=== PATIENT | male | born 1935 | race Caucasian/White ===

== ENCOUNTER → 2017-11-04 | Outpatient (CLI) | payer OTHER ==
--- NOTE | 2017-11-04 16:37 | DIAGNOSTIC IMAGING REPORT ---
CHEST 2 VIEWS ROUTINE HISTORY: Feeling of malaise COMPARISON: None. FINDINGS: There are low lung volumes. A few bibasilar linear densities favor subsegmental atelectasis. No pleural effusions. No pneumothorax. No evidence for pulmonary edema. No focal lung consolidations to suggest pneumonia. The heart is top normal in size. There are poststernotomy changes. Mild elevation of the right hemidiaphragm. Density overlying the lower thoracic spine on the lateral view is likely the hemidiaphragm. IMPRESSION: Low lung volumes, mild elevation of the right hemidiaphragm, and bibasilar linear densities suggesting subsegmental atelectasis. Otherwise, no acute process within the chest. Electronically signed by: Viral Rahcel M.D. 11/04/2017 4:36 PM Dictated Date/Time: 11/04/2017 4:34 PM
== END | disposition home or self-care (01) ==
LOC: C.RADBC 16:16
PROVIDERS: ATTEND Internal Medicine Cardiovascular Disease
DX: R09.89 Other specified symptoms and signs involving the circulatory and respiratory systems (principal)

== ENCOUNTER → 2017-11-05 | Outpatient (CLI) | payer OTHER ==
[2017-11-05 13:41] LABS: BASO % 0.7 %; BASO ABS # 0.04 K/uL (0-0.2); EOS % 5.7 %; EOS ABS # 0.35 K/uL (0-0.5); HEMATOCRIT 40.5 % (42-52); HEMOGLOBIN 13.3 g/dL (14.0-18.0); IG# 0.01 K/uL (0.00-0.02); LYMPH % 21.4 %; LYMPH ABS # 1.31 K/uL (1.2-3.4); MEAN CELL VOLUME 95.1 fL (80-100); MEAN CORPUSCULAR HEMOGLOBIN 31.2 pg (25-34); MEAN CORPUSCULAR HGB CONC 32.8 g/dl (32-36); MEAN PLATELET VOLUME 9.8 fL (7.4-10.4); MONO % 15.9 %; MONO ABS # 0.97 K/uL (0.11-0.59); NEUT % 56.1 %; NEUT ABS # 3.43 K/uL (1.4-6.5); PLATELET COUNT 232 K/uL (130-400); RED CELL DISTRIBUTION WIDTH CV 13.7 % (11.5-14.5); RED CELL DISTRIBUTION WIDTH SD 47.4 fL (36.4-46.3); WHITE BLOOD COUNT 6.11 K/uL (4.8-10.8)
[2017-11-05 14:02] LABS: BLOOD UREA NITROGEN 33 mg/dl (7-18); CALCIUM 9.3 mg/dl (8.5-10.1); CARBON DIOXIDE 30 mmol/L (21-32); CREATININE 1.47 mg/dl (0.60-1.40); GLUCOSE 98 mg/dl (70-99); POTASSIUM 4.3 mmol/L (3.5-5.1); SODIUM 138 mmol/L (136-145)
== END | disposition home or self-care (01) ==
LOC: C.LABBC 09:46
PROVIDERS: ATTEND Internal Medicine Cardiovascular Disease
DX: R06.02 Shortness of breath (principal); R42 Dizziness and giddiness

== ENCOUNTER 2023-04-07 15:33 | Inpatient (IN) ==
--- NOTE | 2023-04-07 16:10 | Emergency Department Note ---
Impression & Plan Viral pneumonia, Hypoxia, Anemia ED Provider Note NAME: BUSHRA QUACH AGE: 87 SEX: M : 1935 ARRIVES VIA: Walk-In INFORMANT: Patient, ED PROVIDER(S): Kristian Nagy MD CHIEF COMPLAINT: Cough, possible pneumonia MEDICAL DECISION MAKING: Patient was seen at [facility] and referred here for further evaluation and treatment. Patient did have an IV established blood work is obtained along with a chest x- ray. Patient was ordered a DuoNeb treatment. Patient currently not an extremis but does have rhonchorous sounds at the bilateral bases. Patient did have some mild improvement after the DuoNeb treatment. The joel ent's blood work shows a normal white count mild anemia hemoglobin of 12.2. Patient's platelet count is unremarkable with normal kidney function. Troponin of 46. He did receive IV fluids. Bio fire positive for enterorhinovirus. Chest x-ray does not show any obvious pneumonia. The patient did undergo an ambulatory trial and was hypoxemic 8%. I did speak with the on-call medicine service. Antibiotics deferred given the patient's viral illness lack of white count and negative procalcitonin. Patient was admitted by Dr. Moore. Prior /Outside records reviewed: I did review in orthopedics visit from March [address] Ruiz the patient had been seen for osteoarthritis of the knees bilaterally. Differential diagnosis: Bronchitis, pneumonia, pneumothorax, hemothorax, GERD, sinusitis among others were considered. Diagnostics, as interpreted by me: ECG: None Cardiac monitoring: An order was placed for continuous cardiac monitoring. The monitor shows a rate of 82 with sinus rhythm. Patient was placed on pulse oximetry Medical decision rules: Curb 65 score Imaging studies: See below I informally reviewed the patient's chest x-ray which shows no obvious pneumothorax. HPI: Patient presents due to concern for cough. Patient states that his cough is been ongoing for about 1 week. The patient did go to [facility] today is referred here as they were concerned about a bilateral pneumonia. Patient states that it seemed to start with more sinus congestion and progressed into his chest. The patient denies any nausea vomiting diarrhea. No chest pains or shortness of breath. Patient does follow with a Dr. Orellana in [place] with regard to cardiology as the patient does have a prior history of CABG. The patient states that this does not feel like his prior [place]. PAST MEDICAL HISTORY: CAD Hyperlipidemia Hypertension PAST SURGICAL HISTORY: Status post CABG SOCIAL HISTORY: See Below HOME MEDICATIONS: See Below ALLERGIES: See Below VITALS: See Below PHYSICAL EXAMINATION: GENERAL: NAD, non-toxic. EYE EXAM: Normal conjunctiva. PERRL, no anisocoria and EOM's grossly intact w/o pain. NECK: Supple, no nuchal rigidity, no adenopathy, non-tender. No signs of meningismus. FROM of the neck with good chin to chest and neck extension. No stridor. LUNGS: Rhonchi at the bilateral bases. Normal chest wall mechanics. HEART: NSR, no MRG. ABDOMEN: Abdomen soft, non-tender, no masses, no rebound or guarding. BACK: No CVA TTP. SKIN: No rashes and no bruising. UPPER EXTREMITIES: Upper extremities are grossly normal. LOWER EXTREMITIES: Grossly normal, no edema. NEURO EXAM: A&O x3, cranial nerves II-XII grossly intact, normal speech, moves all 4 extremities. Past Med/Surg History Social History (Updated 04/07/23 @ 19:58 by Kristian Nagy MD) Smoking Status: Never smoker Hx Alcohol Use: No Hx Substance Use: No Feels Safe at Home: Yes Allergies Allergies Allergy/AdvReac Type Severity Reaction Status Date / Time No Known Allergies Allergy Verified 04/07/23 17:33 Home Meds Home Medications Medication Instructions Recorded Confirmed aspirin 81 mg tablet,delayed 81 mg PO DAILY 02/26/22 04/07/23 release clopidogrel 75 mg tablet (Plavix) 75 mg PO DAILY 02/26/22 04/07/23 isosorbide dinitrate 30 mg tablet 30 mg PO DAILY 02/26/22 04/07/23 simvastatin 80 mg tablet 40 mg PO DAILY 02/26/22 04/07/23 acetaminophen 650 mg 1,300 mg PO Q12H 04/07/23 04/07/23 tablet,extended release azelastine 137 mcg (0.1 %) nasal 1 spray intranasal DAILY 04/07/23 04/07/23 spray aerosol calcium carbonate 600 mg-vitamin 1 tab PO DAILY 04/07/23 04/07/23 D3 10 mcg (400 unit) tablet (Calcium 600 + D(3)) coenzyme Q10 100 mg capsule 100 mg PO DAILY 04/07/23 04/07/23 (CoQ-10) cyanocobalamin (vitamin B-12) 1,000 mcg PO DAILY 04/07/23 04/07/23 1,000 mcg tablet (Vitamin B-12) docusate sodium 100 mg capsule 200 mg PO DAILY 04/07/23 04/07/23 (Stool Softener) folic acid 800 mcg tablet 0.8 mg PO DAILY 04/07/23 04/07/23 losartan 100 mg tablet 50 mg PO DAILY 04/07/23 04/07/23 metoprolol tartrate 50 mg tablet 25 mg PO BID 04/07/23 04/07/23 multivitamin 1 tab PO DAILY 04/07/23 04/07/23 Results & Data (ED) Vital Signs Vital Signs - 24 hr 04/07/23 15:48 04/07/23 16:04 04/07/23 16:04 Temperature 37.3 C Temperature Source Oral Pulse Rate 67 Pulse Rate [Apical] 66 Pulse Rate from SpO2 Sensor Respiratory Rate 20 20 Respiratory Effort / Characteristics Non-Labored Spontaneous Respiratory Depth Normal Normal Respiratory Pattern Regular Blood Pressure 108/66 Blood Pressure [Right Arm] 108/67 Blood Pressure Mean 80 Blood Pressure Mean [Right Arm] 80 Pulse Oximetry 90 93 93 Oxygen Delivery Method Room Air Room Air Room Air Sepsis Recent Fever Within 48 Hours No Sepsis New/Unexplained Change in Mental Status N/A Sepsis Action Taken by Nursing No Action Required 04/07/23 16:19 04/07/23 16:20 04/07/23 16:33 Temperature Temperature Source Pulse Rate 69 Pulse Rate [Apical] Pulse Rate from SpO2 Sensor Respiratory Rate Respiratory Effort / Characteristics Non-Labored Respiratory Depth Respiratory Pattern Regular Blood Pressure Blood Pressure [Right Arm] Blood Pressure Mean Blood Pressure Mean [Right Arm] Pulse Oximetry Oxygen Delivery Method Room Air Room Air Sepsis Recent Fever Within 48 Hours Sepsis New/Unexplained Change in Mental Status Sepsis Action Taken by Nursing 04/07/23 16:42 04/07/23 16:33 04/07/23 17:00 Temperature Temperature Source Pulse Rate 67 Pulse Rate [Apical] Pulse Rate from SpO2 Sensor 69 Respiratory Rate 17 Respiratory Effort / Characteristics Respiratory Depth Respiratory Pattern Blood Pressure 119/58 L Blood Pressure [Right Arm] Blood Pressure Mean 66 Blood Pressure Mean [Right Arm] Pulse Oximetry 92 94 Oxygen Delivery Method Room Air Sepsis Recent Fever Within 48 Hours Sepsis New/Unexplained Change in Mental Status Sepsis Action Taken by Nursing 04/07/23 17:00 04/07/23 17:30 04/07/23 17:30 Temperature Temperature Source Pulse Rate 66 72 Pulse Rate [Apical] Pulse Rate from SpO2 Sensor 67 71 Respiratory Rate 14 14 Respiratory Effort / Characteristics Respiratory Depth Respiratory Pattern Blood Pressure 129/62 Blood Pressure [Right Arm] Blood Pressure Mean 93 Blood Pressure Mean [Right Arm] Pulse Oximetry 95 98 Oxygen Delivery Method Sepsis Recent Fever Within 48 Hours Sepsis New/Unexplained Change in Mental Status Sepsis Action Taken by Nursing 04/07/23 18:00 04/07/23 18:00 04/07/23 18:30 Temperature Temperature Source Pulse Rate 70 77 Pulse Rate [Apical] Pulse Rate from SpO2 Sensor 70 74 Respiratory Rate 20 18 Respiratory Effort / Characteristics Respiratory Depth Respiratory Pattern Blood Pressure 123/65 Blood Pressure [Right Arm] Blood Pressure Mean 90 Blood Pressure Mean [Right Arm] Pulse Oximetry 100 96 Oxygen Delivery Method Sepsis Recent Fever Within 48 Hours Sepsis New/Unexplained Change in Mental Status Sepsis Action Taken by Nursing 04/07/23 18:31 04/07/23 18:31 04/07/23 19:00 Temperature Temperature Source Pulse Rate 81 Pulse Rate [Apical] Pulse Rate from SpO2 Sensor 82 70 Respiratory Rate 13 Respiratory Effort / Characteristics Respiratory Depth Respiratory Pattern Blood Pressure 127/65 Blood Pressure [Right Arm] Blood Pressure Mean 75 Blood Pressure Mean [Right Arm] Pulse Oximetry 96 92 Oxygen Delivery Method Sepsis Recent Fever Within 48 Hours Sepsis New/Unexplained Change in Mental Status Sepsis Action Taken by Residential Medications Current Medication List: was personally reviewed by me Laboratory Data Attestation: I reviewed the patient's lab results. 04/07/23 16:00 04/07/23 16:00 Lab Results 04/07/23 04/07/23 04/07/23 Range/Units 16:00 16:00 16:00 WBC 6.66 (4.8-10.8) K/ul RBC 3.78 L (4.70-6.10) M/uL Hgb 12.2 L (14.0-18.0) g/dl Hct 35.8 L (42.0-52.0) % MCV 94.7 (80.0-100.0) fL MCH 32.3 (25.0-34.0) pg MCHC 34.1 (32.0-36.0) g/dL RDW Std Deviation 47.9 H (36.4-46.3) fL RDW Coeff of Daniel 13.8 (11.5-14.5) % Plt Count 245 (130-400) K/uL MPV 9.6 (9.4-12.4) fL Immature Gran % (Auto) 0.5 % Neut % (Auto) 60.6 % Lymph % (Auto) 20.4 % [place] % (Auto) 14.1 % Eos % (Auto) 3.9 % Baso % (Auto) 0.5 % Neut # (Auto) 4.04 (1.40-6.50) K/uL Lymph # (Auto) 1.36 (1.2-3.4) K/uL [place] # (Auto) 0.94 H (0.11-0.59) K/uL Eos # (Auto) 0.26 (0-0.50) K/uL Baso # (Auto) 0.03 (0-0.2) K/uL Immature Gran # (Auto) 0.03 (0.01-0.20) K/uL PT 10.3 (9.0-12.0) Seconds INR 0.9 (0.9-1.1) APTT 25.1 (21.0-31.0) Seconds PTT Ratio 0.9 Sodium 139 (136-145) mmol/L Potassium 4.3 (3.5-5.1) mmol/L Chloride 104 (98-107) mmol/L Carbon Dioxide 28 (21-32) mmol/L Anion Gap 7 (3-11) BUN 47 H (6-23) mg/dl Creatinine 1.39 (0.6-1.4) mg/dl Est Cr Clr Drug Dosing 37.2 ml/min Est GFR ( Amer) 52.4 ml/min Est GFR (Non-Af Amer) 45.2 ml/min BUN/Creatinine Ratio 33.8 H (10-20) Glucose 123 H (70-99(Fasting)) mg/dl Lactate (0.4-2.0) mmol/L Calcium 9.5 (8.6-10.3) mg/dl Magnesium 2.1 (1.7-2.4) mg/dl Total Bilirubin 0.5 (0.2-1.0) mg/dl AST 14 (13-39) U/L ALT 11 (7-52) U/L Alkaline Phosphatase 63 (34-104) U/L Troponin I High Sens 46.2 H (0-20) pg/ml Total Protein 6.8 (6.0-8.3) gm/dl Albumin 4.1 (3.4-5.0) gm/dl Globulin 2.7 (2.5-4.0) gm/dl Albumin/Globulin Ratio 1.5 (0.9-2) Procalcitonin (0-0.5) ng/ml Adenovirus (PCR) (NotDetected) B. pertussis DNA (PCR) (NotDetected) B.parapertussis DNA PCR (NotDetected) C. pneumoniae DNA (PCR) (NotDetected) Coronavirus OC43 (PCR) (NotDetected) Coronavirus HKU1 (PCR) (NotDetected) Coronavirus 229E (PCR) (NotDetected) SARS-CoV-2 (PCR) (NotDetected) Coronavirus NL63 (PCR) (NotDetected) Human Metapneumovir PCR (NotDetected) Influenza Type A (PCR) (NotDetected) Influenza Type B (PCR) (NotDetected) M. pneumoniae (PCR) (NotDetected) Parainfluenza 1 (PCR) (NotDetected) Parainfluenza 2 (PCR) (NotDetected) Parainfluenza 3 (PCR) (NotDetected) Parainfluenza 4 (PCR) (NotDetected) RSV (PCR) (NotDetected) Entero/Rhino (PCR) (NotDetected) 04/07/23 04/07/23 04/07/23 Range/Units 16:00 16:47 17:00 WBC (4.8-10.8) K/ul RBC (4.70-6.10) M/uL Hgb (14.0-18.0) g/dl Hct (42.0-52.0) % MCV (80.0-100.0) fL MCH (25.0-34.0) pg MCHC (32.0-36.0) g/dL RDW Std Deviation (36.4-46.3) fL RDW Coeff of Daniel (11.5-14.5) % Plt Count (130-400) K/uL MPV (9.4-12.4) fL Immature Gran % (Auto) % Neut % (Auto) % Lymph % (Auto) % [place] % (Auto) % Eos % (Auto) % Baso % (Auto) % Neut # (Auto) (1.40-6.50) K/uL Lymph # (Auto) (1.2-3.4) K/uL [place] # (Auto) (0.11-0.59) K/uL Eos # (Auto) (0-0.50) K/uL Baso # (Auto) (0-0.2) K/uL Immature Gran # (Auto) (0.01-0.20) K/uL PT (9.0-12.0) Seconds INR (0.9-1.1) APTT (21.0-31.0) Seconds PTT Ratio Sodium (136-145) mmol/L Potassium (3.5-5.1) mmol/L Chloride (98-107) mmol/L Carbon Dioxide (21-32) mmol/L Anion Gap (3-11) BUN (6-23) mg/dl Creatinine (0.6-1.4) mg/dl Est Cr Clr Drug Dosing ml/min Est GFR ( Amer) ml/min Est GFR (Non-Af Amer) ml/min BUN/Creatinine Ratio (10-20) Glucose (70-99(Fasting)) mg/dl Lactate 0.8 (0.4-2.0) mmol/L Calcium (8.6-10.3) mg/dl Magnesium (1.7-2.4) mg/dl Total Bilirubin (0.2-1.0) mg/dl AST (13-39) U/L ALT (7-52) U/L Alkaline Phosphatase (34-104) U/L Troponin I High Sens (0-20) pg/ml Total Protein (6.0-8.3) gm/dl Albumin (3.4-5.0) gm/dl Globulin (2.5-4.0) gm/dl Albumin/Globulin Ratio (0.9-2) Procalcitonin < 0.05 (0-0.5) ng/ml Adenovirus (PCR) Not Detected (NotDetected) B. pertussis DNA (PCR) Not Detected (NotDetected) B.parapertussis DNA PCR Not Detected (NotDetected) C. pneumoniae DNA (PCR) Not Detected (NotDetected) Coronavirus OC43 (PCR) Not Detected (NotDetected) Coronavirus HKU1 (PCR) Not Detected (NotDetected) Coronavirus 229E (PCR) Not Detected (NotDetected) SARS-CoV-2 (PCR) Not Detected (NotDetected) Coronavirus NL63 (PCR) Not Detected (NotDetected) Human Metapneumovir PCR Not Detected (NotDetected) Influenza Type A (PCR) Not Detected (NotDetected) Influenza Type B (PCR) Not Detected (NotDetected) M. pneumoniae (PCR) Not Detected (NotDetected) Parainfluenza 1 (PCR) Not Detected (NotDetected) Parainfluenza 2 (PCR) Not Detected (NotDetected) Parainfluenza 3 (PCR) Not Detected (NotDetected) Parainfluenza 4 (PCR) Not Detected (NotDetected) RSV (PCR) Not Detected (NotDetected) Entero/Rhino (PCR) DETECTED A* (NotDetected) Administered Medications Discontinued Medications Albuterol (Albut/Ipratrop 3mg/0.5mg Neb 3 Ml Vial) 3 ml INH NOW STA Stop: 04/07/23 16:38 Last Admin: 04/07/23 16:58 Dose: 3 ml Documented By: Sodium Chloride (Nss) 500 mls @ 999 mls/hr IV .Q31M STA Stop: 04/07/23 17:07 Last Infusion: 04/07/23 17:29 Dose: 0 mls/hr Documented By: Admin: 04/07/23 16:58 Dose: 999 mls/hr Documented By: Imaging Data Radiologist's Impression: Chest X-Ray 04/07/23 16:37 SINGLE VIEW CHEST CLINICAL HISTORY: Rhonchi at the lung bases. FINDINGS: An AP, portable, upright chest radiograph is compared to study dated 11/04/2017. The examination is degraded by portable technique and apical lordotic positioning. The patient is status post midline sternotomy. The heart is enlarged and noting atherosclerotic calcification of the thoracic aorta. The pulmonary vasculature is noncongested. Chronic interstitial thickening is similar to previous. There is chronic elevation of the right hemidiaphragm noting bibasilar scarring/atelectasis. No airspace consolidation or large pleural effusion is identified. No pneumothorax is seen. The skeletal structures are osteopenic. The bony thorax is grossly intact. Degenerative change is noted in the shoulders and spine. IMPRESSION: Cardiomegaly with no active disease in the chest. ACT 112: Negative or not required by law. Electronically signed by: Red Christian M.D. 04/07/2023 4:55 PM Discharge Plan Visit Data Chief Complaint: Shortness of Breath/Dyspnea Stated Complaint: double pnumonia ED Provider: Kristian Nagy Discharge Problem: Viral pneumonia, Hypoxia, Anemia Forms Stand Alone Forms: My [facility] Prescriptions Prescriptions: No Action simvastatin 80 mg tablet 40 mg PO DAILY isosorbide dinitrate 30 mg tablet 30 mg PO DAILY Rx Instructions: allow nitrate-free interval of 12-14 hrs per 24-hr period clopidogrel [Plavix] 75 mg tablet 75 mg PO DAILY aspirin 81 mg tablet,delayed release (DR/EC) 81 mg PO DAILY multivitamin Tablet 1 tab PO DAILY cyanocobalamin (vitamin B-12) [Vitamin B-12] 1,000 mcg Tablet 1,000 mcg PO DAILY acetaminophen [Tylenol Arthritis] 650 mg Tablet Extended Release 1,300 mg PO Q12H metoprolol tartrate 50 mg tablet 25 mg PO BID docusate sodium [Stool Softener] 100 mg Capsule 200 mg PO DAILY azelastine 137 mcg (0.1 %) aerosol,spray 1 spray intranasal DAILY losartan 100 mg tablet 50 mg PO DAILY folic acid 800 mcg Tablet 0.8 mg PO DAILY coenzyme Q10 [CoQ-10] 100 mg Capsule 100 mg PO DAILY calcium carbonate-vitamin D3 [Calcium 600 + D(3)] 600 mg-10 mcg (400 unit) Tablet 1 tab PO DAILY Referrals Referrals: Sana Snell MD [Primary Care Provider] -
[2023-04-07] MEDS ORDERED: ALBUT/IPRATROP 3MG/0.5MG NEB 3 ML VIAL INH STA (16:37)
[2023-04-07] MEDS ORDERED: SODIUM CHLORIDE 0.9% 500 ML IV STA (16:37)
--- NOTE | 2023-04-07 16:57 | XRay Report ---
SINGLE VIEW CHEST CLINICAL HISTORY: Rhonchi at the lung bases. FINDINGS: An AP, portable, upright chest radiograph is compared to study dated 11/04/2017. The examina tion is degraded by portable technique and apical lordotic positioning. The patient is status post mi dline sternotomy. The heart is enlarged and noting atherosclerotic calcification of the thoracic aort a. The pulmonary vasculature is noncongested. Chronic interstitial thickening is similar to previous. There is chronic elevation of the right hemidiaphragm noting bibasilar scarring/atelectasis. No airs pace consolidation or large pleural effusion is identified. No pneumothorax is seen. The skeletal str uctures are osteopenic. The bony thorax is grossly intact. Degenerative change is noted in the should ers and spine. IMPRESSION: Cardiomegaly with no active disease in the chest. ACT 112: Negative or not required by law. Electronically signed by: Red Christian M.D. 04/07/2023 4:55 PM
[2023-04-07 17:01] LABS: Basophils # (auto) 0.03 K/uL (0-0.2); Basophils % (auto) 0.5 %; Eosinophils # (auto) 0.26 K/uL (0-0.50); Eosinophils % (auto) 3.9 %; Hematocrit (blood only) 35.8 % (42.0-52.0); Hemoglobin 12.2 g/dl (14.0-18.0); Immature Granulocytes # (auto) 0.03 K/uL (0.01-0.20); Immature Granulocytes % (auto) 0.5 %; Lymphocytes # (auto) 1.36 K/uL (1.2-3.4); Lymphocytes % (auto) 20.4 %; Mean Corpuscular Hemoglobin 32.3 pg (25.0-34.0); Mean Corpuscular Hgb Conc 34.1 g/dL (32.0-36.0); Mean Corpuscular Volume 94.7 fL (80.0-100.0); Mean Platelet Volume 9.6 fL (9.4-12.4); Monocytes # (auto) 0.94 K/uL (0.11-0.59); Monocytes % (auto) 14.1 %; Neutrophils # (auto) 4.04 K/uL (1.40-6.50); Neutrophils % (auto) 60.6 %; Platelet Count 245 K/uL (130-400); RDW Coefficient of Variation 13.8 % (11.5-14.5); RDW Standard Deviation 47.9 fL (36.4-46.3); Red Blood Count 3.78 M/uL (4.70-6.10); White Blood Count 6.66 K/ul (4.8-10.8)
[2023-04-07 17:08] LABS: Albumin Globulin Ratio 1.5 (0.9-2); Albumin Level 4.1 gm/dl (3.4-5.0); BUN Creatinine Ratio 33.8 (10-20); Bilirubin,Total 0.5 mg/dl (0.2-1.0); Calcium 9.5 mg/dl (8.6-10.3); Creatinine Clr Calc Pharmacy 37.2 ml/min; Est GFR (African American) 52.4 ml/min; Est GFR (Non-African American) 45.2 ml/min; Globulin 2.7 gm/dl (2.5-4.0); Magnesium 2.1 mg/dl (1.7-2.4); Potassium 4.3 mmol/L (3.5-5.1); Total Protein 6.8 gm/dl (6.0-8.3)
[2023-04-07 17:14] LABS: Troponin I High Sensitivity 46.2 pg/ml (0-20)
[2023-04-07 17:29] LABS: INR 0.9 (0.9-1.1); Partial Thromboplastin Ratio 0.9; Partial Thromboplastin Time 25.1 Seconds (21.0-31.0); Prothrombin Time 10.3 Seconds (9.0-12.0)
[2023-04-07 18:03] LABS: Adenovirus PCR Not Detected (NotDetected); Bordetella parapertussis PCR Not Detected (NotDetected); Bordetella pertussis PCR Not Detected (NotDetected); Chlamydia pneumoniae PCR Not Detected (NotDetected); Coronavirus 229E PCR Not Detected (NotDetected); Coronavirus CoV-2 (COVID19)PCR Not Detected (NotDetected); Coronavirus HKU1 PCR Not Detected (NotDetected); Coronavirus NL63 PCR Not Detected (NotDetected); Coronavirus OC43PCR Not Detected (NotDetected); Human Metapneumovirus PCR Not Detected (NotDetected); Influenza A PCR Not Detected (NotDetected); Influenza B PCR Not Detected (NotDetected); Mycoplasma pneumoniae PCR Not Detected (NotDetected); Parainfluenza Virus 1 PCR Not Detected (NotDetected); Parainfluenza Virus 2 PCR Not Detected (NotDetected); Parainfluenza Virus 3 PCR Not Detected (NotDetected); Parainfluenza Virus 4 PCR Not Detected (NotDetected); Respiratory Syncytial VirusPCR Not Detected (NotDetected)
[2023-04-07 18:17] LABS: Rhinovirus/Enterovirus PCR DETECTED (NotDetected)
[2023-04-07] MEDS ORDERED: BENZONATATE 100 MG CAPSULE PO ONE (22:43)
--- NOTE | 2023-04-07 23:07 | History & Physical Report ---
Date of Service April 07, 2023 Assessment & Plan (1) Viral pneumonia: Plan: 87yo Male with PMH CABG with stent placement here for SOB congestion. Viral URI -found to be rhinovirus on PCR -WBC wnl, procal wnl -CXR:Cardiomegaly with no active disease in the chest. -received duoneb in ED -continue PRN duoneb for wheeze -ordered PRN tessalon perls, lozenges, scheduled mucinex -ordered incentive spirometry Hx. CABG -continue aspirin, plavix, isosorbide dinitrate, losartan, simvastatin -trop elevated at 46.3 recheck 43.2, repeat pending FENa: heart healthy Code Status: Full DVT PPX: SCDs Dispo: med/tele obs Holly Egan D.O. PGY 3, FCM History of Present Illness Chief Complaint: SOB Primary Care Provider: Sana Snell MD 87yo Male with PMH CABG with stent placement here for SOB congestion. States congestion started last week, had increased SOB on exertion today went to [facility], they took a CXR stated he had bilateral pneumonia sent him to ED, patient declined ambulance was driven by family member. In ED noted patient desatted to 88% on ambulation with room air, was given albuterol nebulizer which improved his breathing. At this time he denies any fever chills chest pain SOB nausea vomitting. Patient understands that his CXR retaken in the hospital does not show evidence of pneumonia, labs were positive for rhinovirus. Still has productive sounding cough in room, mild wheeze. He denies history of pulmonary conditions. Per son, patient lives alone, family lives 30min away. Discussed with patient given his mildly elevated troponin, the fact he lives alone with an extensive cardiac history, we will recheck his troponin. Troponin returned largely unchanged. Discussed with patient it would be safer to keep him overnight, patient agreed. Allergies Allergy/AdvReac Type Severity Reaction Status Date / Time No Known Allergies Allergy Verified 04/07/23 17:33 Home Medications Medication Instructions Recorded Confirmed Type aspirin 81 mg tablet,delayed 81 mg PO DAILY 02/26/22 04/07/23 History release clopidogrel 75 mg tablet (Plavix) 75 mg PO DAILY 02/26/22 04/07/23 History isosorbide dinitrate 30 mg tablet 30 mg PO DAILY 02/26/22 04/07/23 History simvastatin 80 mg tablet 40 mg PO DAILY 02/26/22 04/07/23 History acetaminophen 650 mg 1,300 mg PO Q12H 04/07/23 04/07/23 History tablet,extended release azelastine 137 mcg (0.1 %) nasal 1 spray intranasal DAILY 04/07/23 04/07/23 History spray aerosol calcium carbonate 600 mg-vitamin 1 tab PO DAILY 04/07/23 04/07/23 History D3 10 mcg (400 unit) tablet (Calcium 600 + D(3)) coenzyme Q10 100 mg capsule 100 mg PO DAILY 04/07/23 04/07/23 History (CoQ-10) cyanocobalamin (vitamin B-12) 1,000 mcg PO DAILY 04/07/23 04/07/23 History 1,000 mcg tablet (Vitamin B-12) docusate sodium 100 mg capsule 200 mg PO DAILY 04/07/23 04/07/23 History (Stool Softener) folic acid 800 mcg tablet 0.8 mg PO DAILY 04/07/23 04/07/23 History losartan 100 mg tablet 50 mg PO DAILY 04/07/23 04/07/23 History metoprolol tartrate 50 mg tablet 25 mg PO BID 04/07/23 04/07/23 History multivitamin 1 tab PO DAILY 04/07/23 04/07/23 History Past Med/Surg History Social History (Updated 04/07/23 @ 19:58 by Kristian Nagy MD) Smoking Status: Former smoker Hx Alcohol Use: Yes Hx Substance Use: No Preferred Language: [place] Communication Ability: Effective Information Services Consultant Required: No Beliefs That Will Affect Care: None Current Living Situation: Alone Current Living Situation Comment: Lives at home. passed in 2021 Feels Safe at Home: Yes Safety Concerns: Feels Safe At This Time Assistive Devices: Cane, Glasses and Walker Physical Exam Constitutional: well developed, well nourished, cooperative and comfortable Eyes: PERRL, conjunctivae normal, anicteric sclerae ENMT: external ear and nose normal, oropharynx normal Neck: trachea midline, no thyromegaly Respiratory: Auscultation: + rhonchi and + wheezes Cardiovascular: Rate/Rhythm: regular rate and regular rhythm Skin: no rashes, warm and dry Results & Data Results & Data Vital Signs (Past 12 Hours) Vital Signs Temp Pulse Pulse Resp BP BP Pulse Ox 04/07/23 19:00 92 04/07/23 18:31 81 13 96 04/07/23 18:31 127/65 04/07/23 18:30 77 18 96 04/07/23 18:00 70 20 100 04/07/23 18:00 123/65 04/07/23 17:30 72 14 98 04/07/23 17:30 129/62 04/07/23 17:00 66 14 95 04/07/23 17:00 119/58 L 04/07/23 16:33 67 17 94 04/07/23 16:42 92 04/07/23 16:33 69 04/07/23 16:20 04/07/23 16:19 04/07/23 16:04 93 04/07/23 16:04 66 20 108/67 93 04/07/23 15:48 37.3 C 67 20 108/66 90 O2 Del Method 04/07/23 19:00 04/07/23 18:31 04/07/23 18:31 04/07/23 18:30 04/07/23 18:00 04/07/23 18:00 04/07/23 17:30 04/07/23 17:30 04/07/23 17:00 04/07/23 17:00 04/07/23 16:33 04/07/23 16:42 Room Air 04/07/23 16:33 04/07/23 16:20 Room Air 04/07/23 16:19 Room Air 04/07/23 16:04 Room Air 04/07/23 16:04 Room Air 04/07/23 15:48 Room Air Supervising Physician Co-Signing Physician Notes attending addendum: I have physically seen this patient, have supervised the medical residents activities, and agree with the H&P unless as otherwise noted. Assessment and Plan: Viral pneumonia- PCR positive for enterovirus/rhinovirus Supportive therapy with DuoNebs, Tessalon Perles, lozenges and Mucinex Continue incentive spirometry Hold on methylprednisolone IV Elevated troponin/CAD/hypertension/status post CABG- troponin mildly elevated at 46.2, likely type II supply demand mismatch Continue aspirin, clopidogrel, isosorbide mononitrate, losartan, metoprolol tart rate hyperlipidemia- continue simvastatin remaining orders and notations as noted Resident Activity Tracking Resident Involvement: Resident Care Provided Care Provided: Adult Hospital Medicine
[2023-04-08] MEDS ORDERED: ALBUTEROL 0.083% NEBU SOLN 3 ML VIAL NEB PRN (00:09)
[2023-04-08] MEDS ORDERED: POLYETHYLENE (MIRALAX) 17 GM PACK PO PRN (00:09)
[2023-04-08] MEDS: COUGH DROP (SUGAR FREE) LOZ 24 LOZ/1 BOX BUCCAL PRN ×2 (05:10→20:32)
[2023-04-08 06:52] LABS: Hematocrit (blood only) 34.8 % (42.0-52.0); Hemoglobin 11.5 g/dl (14.0-18.0); Mean Corpuscular Hemoglobin 31.6 pg (25.0-34.0); Mean Corpuscular Volume 95.6 fL (80.0-100.0); Mean Platelet Volume 9.3 fL (9.4-12.4); Platelet Count 214 K/uL (130-400); RDW Coefficient of Variation 13.6 % (11.5-14.5); RDW Standard Deviation 47.8 fL (36.4-46.3); Red Blood Count 3.64 M/uL (4.70-6.10); White Blood Count 7.51 K/ul (4.8-10.8)
[2023-04-08 07:23] LABS: Albumin Globulin Ratio 1.7 (0.9-2); Albumin Level 3.8 gm/dl (3.4-5.0); BUN Creatinine Ratio 26.1 (10-20); Bilirubin,Total 0.5 mg/dl (0.2-1.0); Calcium 9.2 mg/dl (8.6-10.3); Creatinine Clr Calc Pharmacy 33.7 ml/min; Est GFR (African American) 46.7 ml/min; Est GFR (Non-African American) 40.3 ml/min; Globulin 2.3 gm/dl (2.5-4.0); Potassium 4.4 mmol/L (3.5-5.1); Total Protein 6.1 gm/dl (6.0-8.3)
[2023-04-08] MEDS: ISOSORBIDE MONO EXTENDED REL 30 MG TABCR PO SCH (08:13)
[2023-04-08] MEDS: guaiFENesin 600 MG TABCR PO SCH ×2 (08:13→20:30)
[2023-04-08] MEDS: ASPIRIN 81 MG ECTAB PO SCH (08:14)
[2023-04-08] MEDS: BENZONATATE 100 MG CAPSULE PO SCH ×3 (08:14→20:29)
[2023-04-08] MEDS: DOCUSATE SODIUM 100 MG CAP PO SCH (08:14)
[2023-04-08] MEDS: CLOPIDOGREL BISULFATE 75 MG TAB PO SCH (08:14)
[2023-04-08] MEDS: MULTIVITAMIN TAB PO SCH (08:14)
[2023-04-08] MEDS: FOLIC ACID 400 MCG TAB PO SCH (08:14)
[2023-04-08] MEDS: METOPROLOL TARTRATE 25 MG TAB PO SCH ×2 (08:14→20:31)
[2023-04-08] MEDS: LOSARTAN POTASSIUM 50 MG TAB PO SCH (08:15)
[2023-04-08] MEDS: CALCIUM 600MG + VIT D 400 IU TAB PO SCH (08:15)
[2023-04-08] MEDS: CYANOCOBALAMIN (B-12) 500 MCG TABLET PO SCH (08:15)
[2023-04-08] MEDS ORDERED: NON-FORMULARY MEDICATION (Coenzyme Q10 [Coq-10] 100 mg Capsule) PO SCH (09:00)
[2023-04-08] MEDS: ACETAMINOPHEN 325 MG TAB PO PRN (11:35)
[2023-04-08] MEDS ORDERED: predniSONE 20 MG TAB PO STA (14:55)
[2023-04-08] MEDS ORDERED: ALBUT/IPRATROP 3MG/0.5MG NEB 3 ML VIAL NEB PRN (14:59)
[2023-04-08] MEDS: ALBUT/IPRATROP 3MG/0.5MG NEB 3 ML VIAL NEB SCH ×2 (15:18→19:39)
[2023-04-08] MEDS: SIMVASTATIN 40 MG TAB PO SCH (20:31)
--- NOTE | 2023-04-08 21:27 | Hospitalist Progress Note ---
Date of Service April 08, 2023 Assessment & Plan (1) Acute bronchitis due to Rhinovirus: Plan: BioFire + for rhinovirus at time of admission yesterday. CXR without obvious pneumonia. Significant wheezing on exam. Thus clinical picture most c/w bronchitis from rhinovirus. Start prednisone 40mg daily. Start scheduled duonebs q6h. Cont mucinex. Add flutter valve + IS. Cont droplet precautions. Repeat cxr in am to ensure no developing bacterial superinfection. (2) CAD (coronary artery disease): Plan: h/o 6-vessel CABG in the early . NUMEROUS stents since that time, all of which were placed at [facility] except for 1 stent at the hospital in [place]? Cont imdur, losartan, metoprolol, simvastatin, asa, plavix. No ischemic symptoms at this time. Minimal HS trop elevation likely demand ischemia in setting of #1 above. (3) Hx of CABG: Plan: as above (4) Chronic renal failure (CRF), stage 3b: Plan: CrCl low 30s over last few years BMP in am for stability (5) Elevated troponin: Plan: likely myocardial demand ischemia 2nd to #1 no ischemic symptoms at this time EKG with ST segment depression III, AVF - I don't have old EKG to compare Other leads are normal will try to get an EKG from [facility] to compare (6) DVT prophylaxis: Plan: heparin 5000 BID Plan obtain PT, OT danielals son, daughter updated at bedside cont to observe ; not ready for d/c yet Admission and Anticipated Discharge Date Admission Date: April 07, 2023 Subjective patient feels very congested in his chest can't take deep breaths has been sick for ~1 week no fever at any point during the illness no significant URI symptoms appetite is ok no substernal chest pain denies h/o asthma or COPD following the visit I ordered STAT duoneb following the duoneb his breath sounds/airation were much better he could take a deeper breath Review of Systems Review of Systems: gen - no fevers cv - no chest pain, just a little chest tightness pulm - cough, congestion; no dyspnea GI - no N/V Physical Exam Physical Exam: gen - sitting at side of bed, NAD, occasional cough neck - no JVD sitting upright mouth - MMM heart - RRR, s1 s2 lungs - very poor airation; scattered b/l wheezes; crackles bases; after duoneb --> airation improved, still with mild wheeze, crackles bases remain abd - soft NT ND BS+ chest - midline sternal scar present ext - trace edema b/l, pulses 2+ b/l psych - a/o x 3 Results & Data Results & Data Vital Signs (Past 12 Hours) Vital Signs Temp Pulse Pulse Resp BP Pulse Ox O2 Del Method 04/08/23 19:57 36.7 C 102 H 18 141/73 H 92 Room Air 04/08/23 19:41 93 H 18 93 Room Air 04/08/23 15:58 75 04/08/23 15:18 75 18 95 Room Air 04/08/23 12:16 37.1 C 73 16 161/78 H 93 Room Air Laboratory Results Laboratory Results - last 24 hr 04/07/23 04/08/23 04/08/23 20:52 06:29 06:29 WBC 7.51 RBC 3.64 L Hgb 11.5 L Hct 34.8 L MCV 95.6 MCH 31.6 MCHC 33.0 RDW Std Deviation 47.8 H RDW Coeff of Daniel 13.6 Plt Count 214 MPV 9.3 L Sodium Potassium Chloride Carbon Dioxide Anion Gap BUN Creatinine Est Cr Clr Drug Dosing Est GFR ( Amer) Est GFR (Non-Af Amer) BUN/Creatinine Ratio Glucose Calcium Total Bilirubin AST ALT Alkaline Phosphatase Troponin I High Sens 43.2 H 51.5 H* Total Protein Albumin Globulin Albumin/Globulin Ratio 04/08/23 06:29 WBC RBC Hgb Hct MCV MCH MCHC RDW Std Deviation RDW Coeff of Daniel Plt Count MPV Sodium 141 Potassium 4.4 Chloride 106 Carbon Dioxide 29 Anion Gap 6 BUN 40 H Creatinine 1.53 H Est Cr Clr Drug Dosing 33.7 Est GFR ( Amer) 46.7 Est GFR (Non-Af Amer) 40.3 BUN/Creatinine Ratio 26.1 H Glucose 101 H Calcium 9.2 Total Bilirubin 0.5 AST 13 ALT 10 Alkaline Phosphatase 59 Troponin I High Sens Total Protein 6.1 Albumin 3.8 Globulin 2.3 L Albumin/Globulin Ratio 1.7 PG Care Time/CCT Total # of Minutes Spent Total Time Spent with Patient: Total time spent is greater than 50% in coordination of care (as documented) at patient's floor/unit and/or counseling patient: Coding Level of Care Code 16972 SUB INP/OBS CARE 2MIN Diagnoses Acute bronchitis due to Rhinovirus J20.6 CAD (coronary artery disease) I25.10 Hx of CABG Z95.1 Chronic renal failure (CRF), stage 3b N18.32 Elevated troponin R77.8 DVT prophylaxis Z29.9
--- NOTE | 2023-04-09 03:14 | Billing Data ---
Date of Service April 09, 2023 Coding Level of Care Code 06143 INT INP/OBS CARE
[2023-04-09 07:04] LABS: BUN Creatinine Ratio 24.8 (10-20); Creatinine Clr Calc Pharmacy 31.3 ml/min; Est GFR (African American) 42.6 ml/min; Est GFR (Non-African American) 36.8 ml/min; Potassium 4.7 mmol/L (3.5-5.1)
[2023-04-09] MEDS: ALBUT/IPRATROP 3MG/0.5MG NEB 3 ML VIAL NEB SCH ×4 (07:22→19:26)
[2023-04-09] MEDS: METOPROLOL TARTRATE 25 MG TAB PO SCH ×2 (07:47→20:16)
[2023-04-09] MEDS: CALCIUM 600MG + VIT D 400 IU TAB PO SCH (07:48)
[2023-04-09] MEDS: ISOSORBIDE MONO EXTENDED REL 30 MG TABCR PO SCH (07:48)
[2023-04-09] MEDS: CLOPIDOGREL BISULFATE 75 MG TAB PO SCH (07:48)
[2023-04-09] MEDS: MULTIVITAMIN TAB PO SCH (07:48)
[2023-04-09] MEDS: LOSARTAN POTASSIUM 50 MG TAB PO SCH (07:48)
[2023-04-09] MEDS: ASPIRIN 81 MG ECTAB PO SCH (07:48)
[2023-04-09] MEDS: FOLIC ACID 400 MCG TAB PO SCH (07:48)
[2023-04-09] MEDS: DOCUSATE SODIUM 100 MG CAP PO SCH (07:49)
[2023-04-09] MEDS: BENZONATATE 100 MG CAPSULE PO SCH ×3 (07:49→20:17)
[2023-04-09] MEDS: HEPARIN SOD 5,000 UNIT/0.5 ML VIAL SQ SCH ×2 (07:50→20:16)
[2023-04-09] MEDS: guaiFENesin 600 MG TABCR PO SCH ×2 (07:50→20:16)
[2023-04-09] MEDS: CYANOCOBALAMIN (B-12) 500 MCG TABLET PO SCH (08:56)
[2023-04-09] MEDS ORDERED: predniSONE 20 MG TAB PO STA (09:26)
[2023-04-09 10:40] LABS: Estimated Average Glucose 148 mg/dl; Hemoglobin A1C 6.8 % (4.5-5.6)
--- NOTE | 2023-04-09 10:44 | XRay Report ---
XR chest 2V PA/lateral CLINICAL HISTORY: rhinovirus bronchitis; evaluate for pneumonia COMPARISON STUDY: Chest radiographs November 04, 2017 and April 07, 2023. FINDINGS: Median sternotomy wires and mediastinal surgical clips are noted. Cardiomediastinal silhoue tte is unchanged since radiographs of November 04, 2017. No evidence for pulmonary edema. No pneumotho rax or pleural effusion. There is no consolidation to suggest pneumonia. Lower lung linear densities favor atelectasis or scarring. A density projecting over the lower thoracic spinal lateral projection is unchanged since earlier radiographs. IMPRESSION: No acute cardiopulmonary findings. No significant change in appearance of the chest. ACT 112: Negative or not required by law. Electronically signed by: Tommy Lira M.D. 04/09/2023 10:42 AM
--- NOTE | 2023-04-09 14:00 | Hospitalist Progress Note ---
Date of Service April 09, 2023 Assessment & Plan (1) Acute bronchitis due to Rhinovirus: Plan: BioFire + for rhinovirus at time of admission yesterday. CXR without obvious pneumonia at admission. Repeat 2-view cxr today w/o infiltrates (atelectasis only). Change prednisone to solumedrol 30mg IV BID. Cont nebs. Cont mucinex. Cont flutter valve + IS. Cont droplet precautions. Cont tessalon. Encouraged upright position, sitting in chair, walking, PT consult. (2) CAD (coronary artery disease): Plan: h/o 6-vessel CABG in the early . NUMEROUS stents since that time, all of which were placed at [facility] except for 1 stent at the hospital in [place]? Cont imdur, losartan, metoprolol, simvastatin, asa, plavix. No ischemic symptoms at this time. Minimal HS trop elevation likely demand ischemia in setting of #1 above. (3) Hx of CABG: Plan: as above awaiting last echo and EKG from his primary machine bander and cellophaner helper in [place] - Dr Ilir Barton (4) Chronic renal failure (CRF), stage 3b: Plan: CrCl low 30s over last few years BMP in am for stability (5) Elevated troponin: Plan: likely myocardial demand ischemia 2nd to #1 no ischemic symptoms at this time EKG with ST segment depression III, AVF - I don't have old EKG to compare Other leads are normal awaiting records including last echo and EKG (6) DVT prophylaxis: Plan: heparin 5000 BID (7) T2DM (type 2 diabetes mellitus): Plan: a1c 6.8% plan for diet control pt aware of dx DM educator consult DM diet BSGs to [facility] novolog only if necessary (8) Abdominal distension: Plan: 2nd constipation? other? start with KUB x-ray and go from there Plan obtain PT, OT bella son updated at bedside Admission and Anticipated Discharge Date Admission Date: April 07, 2023 Subjective tele overnight wnl still with cough, congestion, and now sputum production does feel he can take deeper breaths today denies dyspnea he is having orthopnea and did not sleep well last night ate well yesterday; fair today feels bloated but did move bowels this am no substernal chest pain Review of Systems Review of Systems: gen - no fevers, chills cv - orthopnea; no substernal cp pulm - cough/wheezing GI - see HPI Physical Exam Physical Exam: gen - laying in bed, NAD neck - no JVD at 45 degrees mouth - MMM heart - RRR, s1 s2 lungs - airation improved from yesterday; still with scattered b/l wheezes; crackles bases; no distress abd - soft but some distension, abdominal hernia but is reducible, nontender, BS+ chest - midline sternal scar present ext - trace edema b/l, pulses 2+ b/l psych - a/o x 3 Results & Data Results & Data Vital Signs (Past 12 Hours) Vital Signs Temp Pulse Pulse Resp BP Pulse Ox Pulse Ox 04/09/23 11:59 36.4 C L 77 18 110/66 98 04/09/23 11:40 93 04/09/23 11:22 78 20 91 04/09/23 09:00 94 04/09/23 09:00 04/09/23 08:08 36.8 C 90 18 146/76 H 94 04/09/23 07:23 80 18 91 04/09/23 07:00 80 04/09/23 03:15 36.8 C 80 18 138/79 96 Pulse Ox O2 Del Method O2 Flow Rate O2 Flow Rate O2 Flow Rate 04/09/23 11:59 Room Air 04/09/23 11:40 90 0 0 04/09/23 11:22 Room Air 04/09/23 09:00 Room Air 1 04/09/23 09:00 Room Air 04/09/23 08:08 Room Air 04/09/23 07:23 Room Air 04/09/23 07:00 04/09/23 03:15 Nasal Cannula 2 Laboratory Results Laboratory Results - last 24 hr 04/09/23 04/09/23 05:55 05:56 Sodium 140 Potassium 4.7 Chloride 106 Carbon Dioxide 26 Anion Gap 8 BUN 41 H Creatinine 1.65 H Est Cr Clr Drug Dosing 31.3 Est GFR ( Amer) 42.6 Est GFR (Non-Af Amer) 36.8 BUN/Creatinine Ratio 24.8 H Glucose 160 H Estimat Average Glucose 148 Hemoglobin A1c 6.8 H Calcium 9.0 PG Care Time/CCT Total # of Minutes Spent Total Time Spent with Patient: Total time spent is greater than 50% in coordination of care (as documented) at patient's floor/unit and/or counseling patient: Coding Level of Care Code 71129 SUB INP/OBS CARE 350MIN Diagnoses Acute bronchitis due to Rhinovirus J20.6 CAD (coronary artery disease) I25.10 Hx of CABG Z95.1 Chronic renal failure (CRF), stage 3b N18.32 Elevated troponin R77.8 DVT prophylaxis Z29.9 T2DM (type 2 diabetes mellitus) E11.9 Abdominal distension R14.0
[2023-04-09] MEDS: PANTOprazole 40 MG TAB PO SCH (14:33)
[2023-04-09] MEDS: DICLOFENAC SOD 1% GEL 100 GM TUBE EXT SCH ×2 (14:34→20:17)
--- NOTE | 2023-04-09 16:57 | XRay Report ---
XR abdomen min 2V CLINICAL HISTORY: Abdominal distention. COMPARISON STUDY: No previous studies for comparison. FINDINGS: There is no evidence for free air. Several prominent loops of small bowel are noted. Howev er, there is gas within the colon and rectum. There is no convincing evidence for a bowel obstruction . Moderate amount of stool within the colon and rectum is present. IMPRESSION: 1. No free air. Several prominent loops of small bowel without convincing evidence for a small bowel obstruction. 2. Moderate amount of stool within the colon and rectum. ACT 112: Negative or not required by law. Electronically signed by: Tommy Lira M.D. 04/09/2023 4:56 PM
[2023-04-09] MEDS: methylPREDNISolone 30 MG in SYRINGE 0 ML IV SCH (17:28)
[2023-04-09] MEDS: SIMVASTATIN 40 MG TAB PO SCH (20:16)
[2023-04-09] MEDS: SENNA 8.6 MG TAB PO SCH (21:07)
[2023-04-09] MEDS: POLYETHYLENE (MIRALAX) 17 GM PACK PO SCH (21:08)
[2023-04-10] MEDS: methylPREDNISolone 30 MG in SYRINGE 0 ML IV SCH (05:25)
--- NOTE | 2023-04-10 05:39 | Electrocardiogram Report ---
Test Reason : Blood Pressure : / mmHG Vent. Rate : 067 BPM Atrial Rate : 067 BPM P-R Int : 192 ms QRS Dur : 078 ms QT Int : 400 ms P-R-T Axes : 023 -17 -24 degrees QTc Int : 422 ms Sinus rhythm with Premature atrial complexes Inferior infarct No previous ECGs available Confirmed by Pankaj Guevara ([id number]) on 04/10/2023 5:39:17 AM Referred By: REFERRED SELF Confirmed By:Pankaj Guevara
[2023-04-10] MEDS: ALBUT/IPRATROP 3MG/0.5MG NEB 3 ML VIAL NEB SCH ×4 (07:09→19:19)
[2023-04-10 07:34] LABS: Hematocrit (blood only) 33.8 % (42.0-52.0); Hemoglobin 11.2 g/dl (14.0-18.0); Mean Corpuscular Hemoglobin 31.8 pg (25.0-34.0); Mean Corpuscular Hgb Conc 33.1 g/dL (32.0-36.0); Mean Platelet Volume 9.8 fL (9.4-12.4); Platelet Count 251 K/uL (130-400); RDW Coefficient of Variation 13.9 % (11.5-14.5); RDW Standard Deviation 48.9 fL (36.4-46.3); Red Blood Count 3.52 M/uL (4.70-6.10); White Blood Count 10.78 K/ul (4.8-10.8)
[2023-04-10 07:59] LABS: BUN Creatinine Ratio 27.6 (10-20); Calcium 8.8 mg/dl (8.6-10.3); Creatinine Clr Calc Pharmacy 30.6 ml/min; Est GFR (African American) 41.1 ml/min; Est GFR (Non-African American) 35.5 ml/min
[2023-04-10] MEDS: SENNA 8.6 MG TAB PO SCH (09:59)
[2023-04-10] MEDS: BENZONATATE 100 MG CAPSULE PO SCH ×3 (09:59→20:21)
[2023-04-10] MEDS: CALCIUM 600MG + VIT D 400 IU TAB PO SCH (10:00)
[2023-04-10] MEDS: ISOSORBIDE MONO EXTENDED REL 30 MG TABCR PO SCH (10:00)
[2023-04-10] MEDS: LOSARTAN POTASSIUM 50 MG TAB PO SCH (10:00)
[2023-04-10] MEDS: ASPIRIN 81 MG ECTAB PO SCH (10:00)
[2023-04-10] MEDS: CLOPIDOGREL BISULFATE 75 MG TAB PO SCH (10:00)
[2023-04-10] MEDS: guaiFENesin 600 MG TABCR PO SCH ×2 (10:00→20:19)
[2023-04-10] MEDS: DOCUSATE SODIUM 100 MG CAP PO SCH (10:00)
[2023-04-10] MEDS: METOPROLOL TARTRATE 25 MG TAB PO SCH ×2 (10:01→20:20)
[2023-04-10] MEDS: DICLOFENAC SOD 1% GEL 100 GM TUBE EXT SCH ×3 (10:01→20:20)
[2023-04-10] MEDS: CYANOCOBALAMIN (B-12) 500 MCG TABLET PO SCH (10:01)
[2023-04-10] MEDS: HEPARIN SOD 5,000 UNIT/0.5 ML VIAL SQ SCH (10:01)
[2023-04-10] MEDS: FOLIC ACID 400 MCG TAB PO SCH (10:01)
[2023-04-10] MEDS: POLYETHYLENE (MIRALAX) 17 GM PACK PO SCH (10:02)
[2023-04-10] MEDS: MULTIVITAMIN TAB PO SCH (10:02)
[2023-04-10] MEDS: PANTOprazole 40 MG TAB PO SCH (10:02)
[2023-04-10 10:49] LABS: Troponin I High Sensitivity 99.8 pg/ml (0-20)
--- NOTE | 2023-04-10 16:16 | Hospitalist Progress Note ---
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 Each episode occurred with minimal activity. At baseline he has chronic stable angina. Each episode since last pm resolved with putting O2 back on. Following his pain episode last pm he had a modest increase in his HS troponin. His EKG remains unchanged - chronic inverted inferior T waves. Echo done today and is pending. His symptoms are highly concerning for unstable angina in the setting of his acute bronchitis . He has ADVANCED CAD as evidenced by his heart cath in 09/2021 (see details in this note). He is on complex regimen of cardiac meds. Plan - * bedrest * heparin drip - low dose * repeat another troponin now * INCREASE imdur to 60mg/day; give additional 30mg now * consider Ranexa? defer that decision to cardiology * consider amlodipine if additional BP control is needed * very poor L heart cath candidate given the complexity of his CAD, borderline renal function, active bronchitis, etc. but if he needed intervention defer that decision to cardiology * consult cardiology Dr Burr; I messaged Dr Burr this evening and forwarded the L heart cath from 2020 to him * continue asa, plavix, beta juma, etc. * await echo results Of note - patient had chest congestion with his bronchitis, but the pains he is having are typical for his angina. (2) Acute bronchitis due to Rhinovirus: Plan: BioFire + for rhinovirus. CXR x 2 without obvious pneumonia. Due to #1 will STOP all steroid therapy as this could exacerbate his angina. Fortunately he has had enough improvement to date with his breathing to warrant stoppage of the steroids. Cont nebs. Cont mucinex. Cont flutter valve + IS. Cont droplet precautions. Cont tessalon. Encouraged upright position. (3) CAD (coronary artery disease): Plan: h/o 6-vessel CABG in the early . NUMEROUS stents since that time, all of which were placed at [facility] except for 1 stent at the hospital in [place]? Cont imdur, losartan, metoprolol, simvastatin, asa, plavix. See #1 above. (4) Hx of CABG: Plan: as above primary design consultant in [facility] ([facility]) - Dr Ilir Barton see above (5) Chronic renal failure (CRF), stage 3b: Plan: CrCl low 30s over last few years BMP relatively stable today BMP am (6) Elevated troponin: Plan: minimal elevation at admission was likely myocardial demand ischemia 2nd to his bronchitis now, however, he is having active angina and has had further rise in his troponins see #1 above (7) DVT prophylaxis: Plan: d/c SC heparin; changing to low-dose heparin infusion (8) T2DM (type 2 diabetes mellitus): Plan: a1c 6.8% plan for diet control at home pt aware of dx DM educator consult DM diet BSGs to [facility] novolog only if necessary (9) Abdominal distension: Plan: 2nd constipation - moderate stool on KUB added miralax and senna Plan daughter present during the visit today updated with plan of care re: #1 I attempted to call Dr Ilir Barton at [facility] but he was not in the office this afternoon complex care coordination prolonged care today due to #1, retrieving records, calling outside provider, managing #1, etc. total time 85 min Admission and Anticipated Discharge Date Admission Date: April 09, 2023 Subjective tele overnight wnl last pm the patient had an episode of left-sided chest pain - similar to past episodes of angina - with doing minimal activity in the room re-applying his NC O2 helped the pain resolved the night resident physician was called and an HS troponin was sent - returned at 89 which is higher than previous reading done 1 day earlier this event was about 11pm he rested poorly overnight but didn't have any additional pain until today when he had another episode of chest pain this time it occurred when he walked from the bathroom back to his bed left-sided, similar to past angina pain improved with putting O2 on he had at least 1 more episode of chest pain today with doing minimal activity in the room nursing staff reports that they are concerned he is underestimating how frequently the pain is occurring they are concerned he is having it with any activity when asked about chronic angina he states he has chest pain at least every 1-2 weeks he also says "If I miss that imdur things are really bad" last heart cath, per daughter (present during my visit) was 09/2021 in [place] with respect to his bronchitis - cough is still present but mildly improved; sputum production has slowed still denies dyspnea but is having orthopnea no fevers appetite fair-good he remains very tired Review of Systems Review of Systems: gen - no fevers or chills cv - see HPI; +orthopnea, chest pain episodes pulm - cough/wheeze present; sputum improved GI - chronic bloating but improved today after having had another BM Physical Exam Physical Exam: gen - sitting in chair, NAD, a little anxious neck - no JVD at 45 degrees mouth - MMM heart - RRR, s1 s2, no murmur lungs - air movement again improved in comparison to prior exams; scattered b/l wheezes; crackles bases remain; no distress abd - baseline distension, abdominal hernia but is reducible, nontender, BS+, no HSM chest - midline sternal scar present ext - trace edema b/l, pulses 2+ b/l psych - a/o x 3 Results & Data Results & Data Vital Signs (Past 12 Hours) Vital Signs Temp Pulse Pulse Resp BP BP Pulse Ox 04/10/23 15:44 37.0 C 83 16 112/62 93 04/10/23 12:16 04/10/23 11:13 81 18 95 04/10/23 11:05 36.8 C 83 21 114/63 93 04/10/23 08:00 04/10/23 08:00 79 04/10/23 07:27 36.6 C 91 H 20 129/71 92 04/10/23 07:09 85 18 95 O2 Del Method O2 Flow Rate 04/10/23 15:44 Nasal Cannula 04/10/23 12:16 Room Air, Nasal Cannula 04/10/23 11:13 Nasal Cannula 2 04/10/23 11:05 Nasal Cannula 2 04/10/23 08:00 Room Air 04/10/23 08:00 04/10/23 07:27 Room Air 04/10/23 07:09 Nasal Cannula 2 Laboratory Results Laboratory Results - last 24 hr 04/09/23 04/10/23 04/10/23 23:13 07:08 07:08 WBC 10.78 RBC 3.52 L Hgb 11.2 L Hct 33.8 L MCV 96.0 MCH 31.8 MCHC 33.1 RDW Std Deviation 48.9 H RDW Coeff of Daniel 13.9 Plt Count 251 MPV 9.8 Sodium 137 Potassium 5.0 Chloride 105 Carbon Dioxide 25 Anion Gap 7 BUN 47 H Creatinine 1.70 H Est Cr Clr Drug Dosing 30.6 Est GFR ( Amer) 41.1 Est GFR (Non-Af Amer) 35.5 BUN/Creatinine Ratio 27.6 H Glucose 133 H Calcium 8.8 Troponin I High Sens 89.3 H* D 99.8 H* D Diagnostic Findings I called [facility] and received 09/[address]21 heart cath done by Dr Ilir Kwan -- * FLEMING-LAD graft - patent * SVG-OM2 graft - occluded * SVG-distal RCA - occluded * SVG-PDA - occluded * SVG-OM3 - stent in proximal portion and another stent in mid-distal portion that are patent. Just before the proximal stent 80% stenosis seen. This 80% lesion underwent PCI. At the distal end of the graft just before insertion there is 40-50% in-stent restenosis or stenosis just after the stented segment. Downstream there is mild diffuse disease in the target vessel. * SVG-Diagonal - occluded [place] arteries with severe CAD. JEFFREY to the 80% stenosis in SVG-OM3 graft. 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
[2023-04-10] MEDS ORDERED: ISOSORBIDE MONO EXTENDED REL 30 MG TABCR PO ONE (16:30)
[2023-04-10 17:23] LABS: Basophils # (auto) 0.02 K/uL (0-0.2); Basophils % (auto) 0.2 %; Hematocrit (blood only) 33.3 % (42.0-52.0); Immature Granulocytes # (auto) 0.13 K/uL (0.01-0.20); Immature Granulocytes % (auto) 1.2 %; Lymphocytes # (auto) 1.08 K/uL (1.2-3.4); Lymphocytes % (auto) 9.6 %; Mean Corpuscular Hemoglobin 31.8 pg (25.0-34.0); Mean Corpuscular Volume 96.2 fL (80.0-100.0); Mean Platelet Volume 9.9 fL (9.4-12.4); Monocytes # (auto) 1.18 K/uL (0.11-0.59); Monocytes % (auto) 10.5 %; Neutrophils # (auto) 8.88 K/uL (1.40-6.50); Neutrophils % (auto) 78.5 %; Nucleated RBC # (auto) 0.02 K/uL (0-0.12); Nucleated RBC % (auto) 0.2 %; Platelet Count 266 K/uL (130-400); RDW Coefficient of Variation 13.8 % (11.5-14.5); RDW Standard Deviation 48.7 fL (36.4-46.3); Red Blood Count 3.46 M/uL (4.70-6.10); White Blood Count 11.29 K/ul (4.8-10.8)
--- NOTE | 2023-04-10 17:26 | XCELERA ---
[id number]
[2023-04-10 17:47] LABS: INR 0.9 (0.9-1.1); Partial Thromboplastin Ratio 0.9; Prothrombin Time 10.3 Seconds (9.0-12.0)
[2023-04-10] MEDS: Heparin IV Adult Wt-Based Low-Dose *NO* Bolus Protocol IV SCH ×2 (17:54→18:01)
[2023-04-10] MEDS: HEPARIN SODIUM/DEXTROSE 25,000 UNITS/500 ML BAG IV SCH (17:55)
[2023-04-10] MEDS: SIMVASTATIN 40 MG TAB PO SCH (20:19)
[2023-04-11 01:36] LABS: Partial Thromboplastin Ratio 1.8
[2023-04-11 01:39] LABS: Partial Thromboplastin Time 51.8 Seconds (21.0-31.0)
--- NOTE | 2023-04-11 06:42 | Electrocardiogram Report ---
Test Reason : Blood Pressure : / mmHG Vent. Rate : 096 BPM Atrial Rate : 096 BPM P-R Int : 204 ms QRS Dur : 086 ms QT Int : 356 ms P-R-T Axes : 051 -02 -06 degrees QTc Int : 449 ms Normal sinus rhythm Normal ECG When compared with ECG of 07-APR-2023 16:10, Premature atrial complexes are no longer Present Nonspecific T wave abnormality has replaced inverted T waves in Inferior leads Confirmed by Pankaj Guevara ([id number]) on 04/11/2023 6:42:28 AM Referred By: REFERRED SELF Confirmed By:Pankaj Guevara
--- NOTE | 2023-04-11 07:11 | Electrocardiogram Report ---
Test Reason : Blood Pressure : / mmHG Vent. Rate : 078 BPM Atrial Rate : 078 BPM P-R Int : 190 ms QRS Dur : 088 ms QT Int : 382 ms P-R-T Axes : 052 -10 -18 degrees QTc Int : 435 ms Normal sinus rhythm When compared with ECG of 09-APR-2023 21:46, (unconfirmed) No significant change was found Confirmed by Hansel Burr ([id number]) on 04/11/2023 7:11:35 AM Referred By: REFERRED SELF Confirmed By:Low Burr
[2023-04-11] MEDS: ALBUT/IPRATROP 3MG/0.5MG NEB 3 ML VIAL NEB SCH ×4 (07:16→19:23)
[2023-04-11] MEDS ORDERED: NITROGLYCERIN SL 0.4 MG/TAB TAB SL PRN (07:28)
[2023-04-11 07:35] LABS: BUN Creatinine Ratio 29.7 (10-20); Calcium 8.9 mg/dl (8.6-10.3); Creatinine Clr Calc Pharmacy 27.6 ml/min; Est GFR (African American) 35.5 ml/min; Est GFR (Non-African American) 30.6 ml/min; Potassium 4.6 mmol/L (3.5-5.1)
[2023-04-11] MEDS: METOPROLOL TARTRATE 25 MG TAB PO SCH ×4 (09:43→23:29)
[2023-04-11] MEDS: BENZONATATE 100 MG CAPSULE PO SCH ×3 (09:43→20:30)
[2023-04-11] MEDS: guaiFENesin 600 MG TABCR PO SCH ×2 (09:43→20:30)
[2023-04-11] MEDS: LOSARTAN POTASSIUM 50 MG TAB PO SCH (09:44)
[2023-04-11] MEDS: CLOPIDOGREL BISULFATE 75 MG TAB PO SCH (09:44)
[2023-04-11] MEDS: SENNA 8.6 MG TAB PO SCH (09:44)
[2023-04-11] MEDS: MULTIVITAMIN TAB PO SCH (09:44)
[2023-04-11] MEDS: PANTOprazole 40 MG TAB PO SCH (09:44)
[2023-04-11] MEDS: CYANOCOBALAMIN (B-12) 500 MCG TABLET PO SCH (09:44)
[2023-04-11] MEDS: POLYETHYLENE (MIRALAX) 17 GM PACK PO SCH (09:45)
[2023-04-11] MEDS: ASPIRIN 81 MG ECTAB PO SCH (09:45)
[2023-04-11] MEDS: DOCUSATE SODIUM 100 MG CAP PO SCH (09:45)
[2023-04-11] MEDS: DICLOFENAC SOD 1% GEL 100 GM TUBE EXT SCH ×3 (09:45→20:30)
[2023-04-11] MEDS: CALCIUM 600MG + VIT D 400 IU TAB PO SCH (09:45)
[2023-04-11] MEDS: FOLIC ACID 400 MCG TAB PO SCH (09:45)
--- NOTE | 2023-04-11 09:53 | Cardiology Consultation ---
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 Chest pain: Concerning for angina given the exertional nature and his history of coronary disease. He was placed on heparin infusion which ideally will be continued for 48 hours. He will continue on dual anti-platelet therapy with aspirin and Plavix. We will intensify his beta-blockade. In the absence of new symptoms we can have him ambulate and liberalize his activity in the next couple of days to observe his symptoms. Given his age and comorbidities (Including significant renal insufficiency), would seem reasonable to limit angiography unless he has refractory or recurrent symptoms. 2. Elevated troponin: Very mild elevation with slow rise. Less indicative of an acute coronary syndrome but more indicative of his chronic medical condition and transient hypoxia. Treatment as above. 3. Coronary disease: Extensive cardiovascular history including peripheral va scular disease as well. he is on high-dose simvastatin. We can check his lipids in the morning. Will continue dual anti-platelet therapy. History of Present Illness Reason for Consultation: Chest pain Requesting Physician: Kristi Attending Physician: Crow Zamarripa History of Present Illness the patient is an 87-year-old gentleman with an extensive cardiac history to i nclude prior coronary artery bypass grafting and subsequent percutaneous interventions as well as carotid artery disease and renal insufficiency. He initially developed some symptoms of an upper respiratory infection over a week ago. This involved upper nasal congestion and a cough. There was some element of dyspnea and general fatigue. As his symptoms had not improved he eventually sought medical attention at an urgent care center. He was felt to have findings consistent with pneumonia and had an element of hypoxia. He was sent to the emergency room for evaluation and admitted to the hospital for observation. Currently being treated for bronchitis. On 2 occasions since his hospitalization the patient has complained of chest discomfort. Both episodes occurred when ambulating from the bathroom. He states that these were moderate in severity and took 10-15 minutes to resolve. They resolve with rest and application of supplemental oxygen. He has not had a recurrence since yest aiden. Leading up to his admission the patient states that he has had "chest discomfort" on occasion for some time. He was unaware and did not recall any of the symptoms until he spoke with a friend to reminded him of these complaints. However, he has not had severe discomfort or symptoms similar to what he has experienced in the hospital leading up to his admission. Some mild dyspnea at times. He denies significant dizziness or lightheadedness. Does have some orthopedic problems involves his knees and this appears limit ambulation or standing for long periods. He does use a walker for ambulation at home. the patient states that leading up to his surgical revascularization he had symptoms of exertional chest discomfort. He claims to have had an extensive evaluation and eventually ended up at [facility] where he underwent his surgery. Since that time he has had multiple percutaneous interventions. He feels that most of these episodes were a result of chest discomfort. Approximately 18 months ago he did have another evaluation which involved cardiac perfusion imaging. He cannot recall any specific symptoms leading up to that test. Perhaps some mild dyspnea. This eventually led to a another angiography and intervention to a graft supplying OM 3. He thinks that subsequent to that intervention he had some improvement in breathing difficulty. Despite being on bedrest, the patient was able to ambulate some yesterday. He went to the bathroom and back without symptoms. He also stated that earlier in his hospitalization he was able to ambulate around the [facility] without symptoms of chest discomfort. Allergies Allergy/AdvReac Type Severity Reaction Status Date / Time No Known Allergies Allergy Verified 04/07/23 17:33 Home Medications Medication Instructions Recorded Confirmed Type aspirin 81 mg tablet,delayed 81 mg PO DAILY 02/26/22 04/07/23 History release clopidogrel 75 mg tablet (Plavix) 75 mg PO DAILY 02/26/22 04/07/23 History isosorbide dinitrate 30 mg tablet 30 mg PO DAILY 02/26/22 04/07/23 History simvastatin 80 mg tablet 40 mg PO DAILY 02/26/22 04/07/23 History acetaminophen 650 mg 1,300 mg PO Q12H 04/07/23 04/07/23 History tablet,extended release azelastine 137 mcg (0.1 %) nasal 1 spray intranasal DAILY 04/07/23 04/07/23 History spray aerosol calcium carbonate 600 mg-vitamin 1 tab PO DAILY 04/07/23 04/07/23 History D3 10 mcg (400 unit) tablet (Calcium 600 + D(3)) coenzyme Q10 100 mg capsule 100 mg PO DAILY 04/07/23 04/07/23 History (CoQ-10) cyanocobalamin (vitamin B-12) 1,000 mcg PO DAILY 04/07/23 04/07/23 History 1,000 mcg tablet (Vitamin B-12) docusate sodium 100 mg capsule 200 mg PO DAILY 04/07/23 04/07/23 History (Stool Softener) folic acid 800 mcg tablet 0.8 mg PO DAILY 04/07/23 04/07/23 History losartan 100 mg tablet 50 mg PO DAILY 04/07/23 04/07/23 History metoprolol tartrate 50 mg tablet 25 mg PO BID 04/07/23 04/07/23 History multivitamin 1 tab PO DAILY 04/07/23 04/07/23 History Patient History Social History (Updated 04/07/23 @ 19:58 by Kristian Nagy MD) Smoking Status: Former smoker Hx Alcohol Use: Yes Hx Substance Use: No Preferred Language: Mongolian Communication Ability: Effective Tire Bladder Maker Required: No Beliefs That Will Affect Care: None Current Living Situation: Alone Current Living Situation Comment: Lives at home. passed in 2021 Feels Safe at Home: Yes Safety Concerns: Feels Safe At This Time Assistive Devices: Cane, Glasses and Walker Review of Systems Review of Systems: Per HPI. Patient currently claims to "feel miserable". This is due to some frustration with the inability to get out of bed and issues related to his IV and heparin infusion. He also has developed some left inguinal discomfort. He sees somewhat anxious and depressed over his medical condition. Physical Exam Physical Exam: The patient is alert and oriented. Mood and affect appeared normal. He answered all questions appropriately. HEENT: Pupils are equal and reactive to light and accommodation. Extraocular movements are intact. The sclerae are anicteric. Neuro: Cranial nerves intact Lungs: Some bronchial breath sounds. No expiratory wheezing. No rales. Normal respiratory effort. Cardiac: Heart demonstrates a regular rate and rhythm. Normal S1 and S2. No murmurs on examination. Pulses: The patient has palpable radial pulses bilaterally that are equal in intensity. Palpable right femoral pulse without bruit. Extremities: There was no evidence of hypoperfusion. There is no cyanosis or clubbing. There is no edema. Skin: I did not appreciate any rashes on examination today. Results & Data Vital Signs (Past 12 Hours) Vital Signs Temp Pulse Pulse Resp BP Pulse Ox O2 Del Method 04/11/23 08:36 36.5 C 90 18 148/82 H 95 Nasal Cannula 04/11/23 07:44 83 04/11/23 07:16 75 16 95 Nasal Cannula 04/11/23 04:20 82 18 04/11/23 04:02 36.7 C 93 H 20 159/88 H 92 Nasal Cannula 04/10/23 23:52 36.8 C 88 20 119/65 92 Nasal Cannula 04/10/23 22:00 82 O2 Flow Rate 04/11/23 08:36 2 04/11/23 07:44 04/11/23 07:16 2 04/11/23 04:20 04/11/23 04:02 2 04/10/23 23:52 2 04/10/23 22:00 Laboratory Results Abnormal Lab Results 04/10/23 04/10/23 04/10/23 07:08 16:34 16:42 WBC 11.29 H RBC 3.46 L Hgb 11.0 L Hct 33.3 L MCV 96.2 MCH 31.8 MCHC 33.0 RDW Std Deviation 48.7 H RDW Coeff of Daniel 13.8 Plt Count 266 MPV 9.9 Immature Gran % (Auto) 1.2 Neut % (Auto) 78.5 Lymph % (Auto) 9.6 [place] % (Auto) 10.5 Eos % (Auto) 0.0 Baso % (Auto) 0.2 Neut # (Auto) 8.88 H Lymph # (Auto) 1.08 L [place] # (Auto) 1.18 H Eos # (Auto) 0.00 Baso # (Auto) 0.02 Immature Gran # (Auto) 0.13 Absolute Nucleated RBC 0.02 Nucleated RBC % (auto) 0.2 PT INR APTT PTT Ratio Sodium Potassium Chloride Carbon Dioxide Anion Gap BUN Creatinine Est Cr Clr Drug Dosing Est GFR ( Amer) Est GFR (Non-Af Amer) BUN/Creatinine Ratio Glucose Calcium Troponin I High Sens 99.8 H* D 97.3 H* 04/10/23 04/11/23 04/11/23 16:42 00:20 06:59 WBC RBC Hgb Hct MCV MCH MCHC RDW Std Deviation RDW Coeff of Daniel Plt Count MPV Immature Gran % (Auto) Neut % (Auto) Lymph % (Auto) [place] % (Auto) Eos % (Auto) Baso % (Auto) Neut # (Auto) Lymph # (Auto) [place] # (Auto) Eos # (Auto) Baso # (Auto) Immature Gran # (Auto) Absolute Nucleated RBC Nucleated RBC % (auto) PT 10.3 INR 0.9 APTT 24.0 51.8 H* PTT Ratio 0.9 1.8 Sodium 138 Potassium 4.6 Chloride 105 Carbon Dioxide 24 Anion Gap 9 BUN 57 H Creatinine 1.92 H Est Cr Clr Drug Dosing 27.6 Est GFR ( Amer) 35.5 Est GFR (Non-Af Amer) 30.6 BUN/Creatinine Ratio 29.7 H Glucose 115 H Calcium 8.9 Troponin I High Sens Diagnostic Findings chest x-ray obtained the time of admission and 2 days later did not reveal any acute cardiopulmonary process. Abdominal x-ray did not reveal any evidence of obstruction. No free air. Echocardiogram obtained 04/10/2023: Ejection fraction greater than 70%. Severe LVH. Mildly reduced RV systolic function. No significant valvular heart disease. Cardiac perfusion study 08/2021: Infarct and ischemia in the inferior wall. Cardiac catheterization 09/2021: left main: 70% ostial stenosis, Lad 100% occluded in its midportion, left circumflex 80% proximal stenosis, right coronary 100% occluded, youssef to LAD widely patent, SVG to OM 2 is occluded, SVG to RCA is occluded, SVG to PDA is occluded, SVG to diagonal occluded, SVG to OM3 80% proximal stenosis. ECG Additional Comments: EKG demonstrated normal sinus rhythm with some T-wave inversions in the inferior leads. 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
[2023-04-11] MEDS: ACETAMINOPHEN 325 MG TAB PO PRN ×2 (13:04→17:11)
[2023-04-11] MEDS: ISOSORBIDE MONO EXTENDED REL 60 MG TABCR PO SCH (13:05)
[2023-04-11] MEDS: SIMVASTATIN 40 MG TAB PO SCH (20:30)
[2023-04-11] MEDS: ACETAMINOPHEN 325 MG TAB PO SCH (20:35)
--- NOTE | 2023-04-11 21:50 | Hospitalist Progress Note ---
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 Each episode occurred with minimal activity. At baseline he has chronic stable angina. Each episode since last pm resolved with putting O2 back on. Following his pain episode last pm he had a modest increase in his HS troponin. His EKG remains unchanged - chronic inverted inferior T waves. Echo done today and is pending. His symptoms are highly concerning for unstable angina in the setting of his acute bronchitis . He has ADVANCED CAD as evidenced by his heart cath in 09/2021 (see details in this note). He is on complex regimen of cardiac meds. Plan - * bedrest * heparin drip - low dose : heparinize for 48 hours * trop trending at high 90s. * INCREASE imdur to 60mg/day; * consider Ranexa? defer that decision to cardiology * consider amlodipine if additional BP control is needed * very poor L heart cath candidate given the complexity of his CAD, borderline renal function, active bronchitis, etc. but if he needed intervention defer that decision to cardiology * consult cardiology Dr Burr; * continue asa, plavix, beta juma, etc. Of note - patient had chest congestion with his bronchitis, but the pains he is having are typical for his angina. (2) Acute bronchitis due to Rhinovirus: Plan: [employer] + for rhinovirus. CXR x 2 without obvious pneumonia. Due to #1 will STOP all steroid therapy as this could exacerbate his angina. Fortunately he has had enough improvement to date with his breathing to warrant stoppage of the steroids. Cont nebs. Cont mucinex. Cont flutter valve + IS. Cont droplet precautions. Cont tessalon. Encouraged upright position. (3) CAD (coronary artery disease): Plan: h/o 6-vessel CABG in the early . NUMEROUS stents since that time, all of which were placed at [facility] except for 1 stent at the hospital in [place]? Cont imdur, losartan, metoprolol, simvastatin, asa, plavix. See #1 above. (4) Hx of CABG: Plan: as above primary [employer] rep in [place] ([facility]) - Dr Ilir Barton see above (5) Chronic renal failure (CRF), stage 3b: Plan: CrCl low 30s over last few years BMP relatively stable today BMP am (6) Elevated troponin: Plan: minimal elevation at admission was likely myocardial demand ischemia 2nd to his bronchitis now, however, he is having active angina and has had further rise in his troponins see #1 above (7) DVT prophylaxis: Plan: d/c SC heparin; changing to low-dose heparin infusion (8) T2DM (type 2 diabetes mellitus): Plan: a1c 6.8% plan for diet control at home 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 Patient denies any chest pain, nausea, vomiting. Review of Systems Review of Systems: All systems reviewed & are unremarkable except as noted in HPI & below Physical Exam Physical Exam: gen - sitting in chair, NAD, a little anxious neck - no JVD at 45 degrees mouth - MMM heart - RRR, s1 s2, no murmur lungs - scattered b/l wheezes; crackles bases remain; no distress abd - baseline distension, abdominal hernia but is reducible, nontender, BS+, no HSM chest - midline sternal scar present ext - trace edema b/l, pulses 2+ b/l psych - a/o x 3 Results & Data Results & Data Vital Signs (Past 12 Hours) Vital Signs Temp Pulse Pulse Resp BP BP Pulse Ox 04/11/23 20:28 36.7 C 101 H 20 102/66 93 04/11/23 19:25 94 H 18 96 04/11/23 16:33 04/11/23 11:00 04/11/23 15:00 90 04/11/23 16:04 36.4 C L 101 H 18 141/80 H 95 04/11/23 15:42 94 H 20 95 04/11/23 11:57 36.7 C 77 18 128/74 97 04/11/23 11:22 81 20 97 O2 Del Method O2 Flow Rate 04/11/23 20:28 Nasal Cannula 2 04/11/23 19:25 Nasal Cannula 3 04/11/23 16:33 Nasal Cannula 04/11/23 11:00 Nasal Cannula 2 04/11/23 15:00 04/11/23 16:04 Room Air 04/11/23 15:42 Nasal Cannula 2 04/11/23 11:57 Nasal Cannula 2 04/11/23 11:22 Nasal Cannula PG Care Time/CCT Total # of Minutes Spent Total Time Spent with Patient: Total time spent is greater than 50% in coordination of care (as documented) at patient's floor/unit and/or counseling patient: Coding Level of Care Code 06147 SUB INP/OBS CARE 3/50MIN Diagnoses 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
[2023-04-11] MEDS: HEPARIN SODIUM/DEXTROSE 25,000 UNITS/500 ML BAG IV SCH (22:01)
[2023-04-12] MEDS: MELATONIN 3 MG TAB PO PRN ×2 (00:07→20:38)
[2023-04-12] MEDS: METOPROLOL TARTRATE 25 MG TAB PO SCH ×4 (06:27→23:58)
[2023-04-12 06:45] LABS: Basophils # (auto) 0.02 K/uL (0-0.2); Basophils % (auto) 0.1 %; Eosinophils # (auto) 0.07 K/uL (0-0.50); Eosinophils % (auto) 0.5 %; Hematocrit (blood only) 26.2 % (42.0-52.0); Hemoglobin 8.9 g/dl (14.0-18.0); Immature Granulocytes # (auto) 0.11 K/uL (0.01-0.20); Immature Granulocytes % (auto) 0.8 %; Lymphocytes # (auto) 1.12 K/uL (1.2-3.4); Lymphocytes % (auto) 8.3 %; Mean Corpuscular Hemoglobin 31.6 pg (25.0-34.0); Mean Corpuscular Volume 92.9 fL (80.0-100.0); Mean Platelet Volume 10.2 fL (9.4-12.4); Monocytes % (auto) 12.6 %; Neutrophils # (auto) 10.46 K/uL (1.40-6.50); Neutrophils % (auto) 77.7 %; Platelet Count 257 K/uL (130-400); RDW Coefficient of Variation 13.7 % (11.5-14.5); RDW Standard Deviation 46.5 fL (36.4-46.3); Red Blood Count 2.82 M/uL (4.70-6.10); White Blood Count 13.48 K/ul (4.8-10.8)
[2023-04-12] MEDS: ALBUT/IPRATROP 3MG/0.5MG NEB 3 ML VIAL NEB SCH ×4 (07:08→19:48)
[2023-04-12 07:15] LABS: BUN Creatinine Ratio 28.2 (10-20); Calcium 8.5 mg/dl (8.6-10.3); Creatinine Clr Calc Pharmacy 24.8 ml/min; Est GFR (African American) 31.3 ml/min; Potassium 4.6 mmol/L (3.5-5.1)
[2023-04-12] MEDS: guaiFENesin 600 MG TABCR PO SCH ×2 (07:18→20:28)
[2023-04-12] MEDS: CYANOCOBALAMIN (B-12) 500 MCG TABLET PO SCH (07:19)
[2023-04-12] MEDS: FOLIC ACID 400 MCG TAB PO SCH (07:19)
[2023-04-12] MEDS: DOCUSATE SODIUM 100 MG CAP PO SCH (07:19)
[2023-04-12] MEDS: ACETAMINOPHEN 325 MG TAB PO SCH ×4 (07:19→20:26)
[2023-04-12] MEDS: CLOPIDOGREL BISULFATE 75 MG TAB PO SCH (07:20)
[2023-04-12] MEDS: SENNA 8.6 MG TAB PO SCH (07:20)
[2023-04-12] MEDS: CALCIUM 600MG + VIT D 400 IU TAB PO SCH (07:20)
[2023-04-12] MEDS: PANTOprazole 40 MG TAB PO SCH (07:20)
[2023-04-12] MEDS: LOSARTAN POTASSIUM 50 MG TAB PO SCH (07:21)
[2023-04-12] MEDS: ASPIRIN 81 MG ECTAB PO SCH (07:21)
[2023-04-12] MEDS: ISOSORBIDE MONO EXTENDED REL 60 MG TABCR PO SCH (07:21)
[2023-04-12] MEDS: MULTIVITAMIN TAB PO SCH (07:22)
[2023-04-12] MEDS: POLYETHYLENE (MIRALAX) 17 GM PACK PO SCH (07:22)
[2023-04-12] MEDS: DICLOFENAC SOD 1% GEL 100 GM TUBE EXT SCH ×3 (07:22→20:28)
[2023-04-12] MEDS: BENZONATATE 100 MG CAPSULE PO SCH ×3 (07:22→20:27)
[2023-04-12 07:41] LABS: Partial Thromboplastin Ratio 2.1; Prothrombin Time 10.8 Seconds (9.0-12.0)
[2023-04-12 07:55] LABS: Partial Thromboplastin Time 58.7 Seconds (21.0-31.0)
--- NOTE | 2023-04-12 10:03 | Cardiology Progress Note ---
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 Chest pain: No recurrence. Will continue systemic heparinization for 48 hours. Will continue dual anti-platelet therapy. We will liberalize his activity afterwards. I think conservative therapy would be recommended given his comorbidities, advanced age and known coronary anatomy. However, for recurrent symptoms he may require more aggressive intervention. Tolerating increased dose of metoprolol. Isosorbide mononitrate has also been increased. 2. Elevated troponin: Very mild elevation with slow rise. Less indicative of an acute coronary syndrome but more indicative of his chronic medical condition and transient hypoxia. Treatment as above. 3. Coronary disease: Extensive cardiovascular history including peripheral vascular disease as well. he is on high-dose simvastatin. We can check his lipids in the morning. Will continue dual anti-platelet therapy. 4. Anemia: Slow decline in the hemoglobin. No evidence of acute bleeding although we need to be wary of this possibility. For further decline we may need to consider transfusion in order to avoid worsening cardiovascular symptoms. Admission and Anticipated Discharge Date Admission Date: April 09, 2023 Subjective This morning the patient continues to feel poorly. Some of this is related to little sleep over the course of the evening. Some of this appears to be related to continued left lower quadrant discomfort. This seems to be worse with certain movements. He was more satisfied with the bedside commode than using a urinal for relief. Some ambulation back and forth to the bathroom yesterday without recurrent symptoms of chest discomfort. No limiting dyspnea. No orthopnea. Review of Systems Review of Systems: Per HPI. Some nausea as well. Physical Exam Physical Exam: The patient is alert and oriented. Mood and affect appeared normal. He answered all questions appropriately. HEENT: Pupils are equal and reactive to light and accommodation. Extraocular movements are intact. The sclerae are anicteric. Neuro: Cranial nerves intact Lungs: Clear to auscultation bilaterally. He has good air movement without use of accessory muscles. No rales wheezes or rhonchi. Cardiac: Heart demonstrates a regular rate and rhythm. Normal S1 and S2. No murmurs on examination. Pulses: The patient has palpable radial pulses bilaterally that are equal in intensity Extremities: There was no evidence of hypoperfusion. There is no cyanosis or clubbing. minimal edema Skin: I did not appreciate any rashes on examination today. ecchymosis in a very small subcutaneous lump just left and inferior to the umbilicus. Results & Data Vital Signs (Past 12 Hours) Vital Signs Temp Pulse Pulse Resp BP BP Pulse Ox 04/12/23 08:00 84 04/12/23 08:00 04/12/23 07:25 36.7 C 90 19 126/74 95 04/12/23 07:08 84 18 97 04/12/23 04:56 36.7 C 84 20 123/76 96 04/12/23 00:17 82 04/12/23 00:00 92 H 04/11/23 23:51 36.9 C 90 20 108/56 L 97 04/11/23 23:28 145/82 H O2 Del Method O2 Flow Rate 04/12/23 08:00 04/12/23 08:00 Nasal Cannula 2 04/12/23 07:25 Nasal Cannula 2 04/12/23 07:08 Nasal Cannula 1 04/12/23 04:56 Nasal Cannula 2 04/12/23 00:17 04/12/23 00:00 04/11/23 23:51 Nasal Cannula 2 04/11/23 23:28 Laboratory Results Abnormal Lab Results 04/12/23 04/12/23 04/12/23 05:58 05:58 05:58 WBC 13.48 H RBC 2.82 L Hgb 8.9 L Hct 26.2 L MCV 92.9 MCH 31.6 MCHC 34.0 RDW Std Deviation 46.5 H RDW Coeff of Daniel 13.7 Plt Count 257 MPV 10.2 Immature Gran % (Auto) 0.8 Neut % (Auto) 77.7 Lymph % (Auto) 8.3 [place] % (Auto) 12.6 Eos % (Auto) 0.5 Baso % (Auto) 0.1 Neut # (Auto) 10.46 H Lymph # (Auto) 1.12 L [place] # (Auto) 1.70 H Eos # (Auto) 0.07 Baso # (Auto) 0.02 Immature Gran # (Auto) 0.11 PT 10.8 INR 1.0 APTT 58.7 H* PTT Ratio 2.1 Sodium 134 L Potassium 4.6 Chloride 102 Carbon Dioxide 24 Anion Gap 8 BUN 60 H Creatinine 2.13 H Est Cr Clr Drug Dosing 24.8 Est GFR ( Amer) 31.3 Est GFR (Non-Af Amer) 27.0 BUN/Creatinine Ratio 28.2 H Glucose 139 H Calcium 8.5 L Diagnostic Findings chest x-ray obtained the time of admission and 2 days later did not reveal any acute cardiopulmonary process. Abdominal x-ray did not reveal any evidence of obstruction. No free air. Echocardiogram obtained 04/10/2023: Ejection fraction greater than 70%. Severe LVH. Mildly reduced RV systolic function. No significant valvular heart disease. Cardiac perfusion study 08/2021: Infarct and ischemia in the inferior wall. Cardiac catheterization 09/2021: left main: 70% ostial stenosis, Lad 100% occluded in its midportion, left circumflex 80% proximal stenosis, right coronary 100% occluded, youssef to LAD widely patent, SVG to OM 2 is occluded, SVG to RCA is occluded, SVG to PDA is occluded, SVG to diagonal occluded, SVG to OM3 80% proximal stenosis. ECG Additional Comments: EKG demonstrated normal sinus rhythm with some T-wave inversions in the inferior leads. 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
--- NOTE | 2023-04-12 15:38 | Hospitalist Progress Note ---
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 Each episode occurred with minimal activity. At baseline he has chronic stable angina. Each episode since last pm resolved with putting O2 back on. Following his pain episode last pm he had a modest increase in his HS troponin. His EKG remains unchanged - chronic inverted inferior T waves. Echo done today and is pending. His symptoms are highly concerning for unstable angina in the setting of his acute bronchitis . He has ADVANCED CAD as evidenced by his heart cath in 09/2021 (see details in this note). He is on complex regimen of cardiac meds. Plan - * bedrest * heparin drip - low dose : heparinize for 48 hours * trop trending at high 90s. * INCREASE imdur to 60mg/day; * consider Ranexa? defer that decision to cardiology * consider amlodipine if additional BP control is needed * very poor L heart cath candidate given the complexity of his CAD, borderline renal function, active bronchitis, etc. but if he needed intervention defer that decision to cardiology * consult cardiology Dr Burr; * continue asa, plavix, beta juma, etc. * Monitor hemoglobin, no signs of dark stools. * plan to discontinue heparin in AM. Of note - patient had chest congestion with his bronchitis, but the pains he is having are typical for his angina. (2) Acute bronchitis due to Rhinovirus: Plan: BioFire + for rhinovirus. CXR x 2 without obvious pneumonia. Due to #1 will STOP all steroid therapy as this could exacerbate his angina. Fortunately he has had enough improvement to date with his breathing to warrant stoppage of the steroids. Cont nebs. Cont mucinex. Cont flutter valve + IS. Cont droplet precautions. Cont tessalon. Encouraged upright position. (3) CAD (coronary artery disease): Plan: h/o 6-vessel CABG in the early . NUMEROUS stents since that time, all of which were placed at [facility] except for 1 stent at the hospital in [place]? Cont imdur, losartan, metoprolol, simvastatin, asa, plavix. See #1 above. (4) Hx of CABG: Plan: as above primary clinical academic allergist in [facility] ([facility]) - Dr Ilir Barton see above (5) Chronic renal failure (CRF), stage 3b: Plan: CrCl low 30s over last few years BMP relatively stable today BMP am (6) Elevated troponin: Plan: minimal elevation at admission was likely myocardial demand ischemia 2nd to his bronchitis now, however, he is having active angina and has had further rise in his troponins see #1 above trop increased to 117, (7) DVT prophylaxis: Plan: d/c SC heparin; changing to low-dose heparin infusion (8) T2DM (type 2 diabetes mellitus): Plan: a1c 6.8% plan for diet control at home pt aware of dx DM educator consult DM diet BSGs to [facility] novolog only if necessary (9) Abdominal distension: Plan: 2nd constipation - moderate stool on KUB added miralax and senna Admission and Anticipated Discharge Date Admission Date: April 09, 2023 Subjective 87 yo male reports no new symptoms. Patient though reports just moving towards the bedside commode gets him SOB. Review of Systems Review of Systems: All systems reviewed & are unremarkable except as noted in HPI & below Physical Exam Physical Exam: gen - sitting in chair, NAD, a little anxious neck - no JVD at 45 degrees mouth - MMM heart - RRR, s1 s2, no murmur lungs - scattered b/l wheezes; crackles bases remain; no distress abd - baseline distension, abdominal hernia but is reducible, nontender, BS+, no HSM chest - midline sternal scar present ext - trace edema b/l, pulses 2+ b/l psych - a/o x 3 Results & Data Results & Data Vital Signs (Past 12 Hours) Vital Signs Temp Pulse Pulse Resp BP Pulse Ox O2 Del Method 04/12/23 13:34 Nasal Cannula 04/12/23 13:32 95 H 17 94/57 L 96 Nasal Cannula 04/12/23 11:22 85 18 97 Nasal Cannula 04/12/23 08:00 84 04/12/23 08:00 Nasal Cannula 04/12/23 07:25 36.7 C 90 19 126/74 95 Nasal Cannula 04/12/23 07:08 84 18 97 Nasal Cannula 04/12/23 04:56 36.7 C 84 20 123/76 96 Nasal Cannula O2 Flow Rate 04/12/23 13:34 04/12/23 13:32 2 04/12/23 11:22 1 04/12/23 08:00 04/12/23 08:00 2 04/12/23 07:25 2 04/12/23 07:08 1 04/12/23 04:56 2 PG Care Time/CCT Total # of Minutes Spent Total Time Spent with Patient: Total time spent is greater than 50% in coordination of care (as documented) at patient's floor/unit and/or counseling patient: Coding Level of Care Code 38880 SUB INP/OBS CARE 3/50MIN Diagnoses 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
[2023-04-12 16:25] LABS: Hematocrit (blood only) 24.9 % (42.0-52.0); Hemoglobin 8.6 g/dl (14.0-18.0)
[2023-04-12] MEDS: SIMVASTATIN 40 MG TAB PO SCH (20:29)
[2023-04-12] MEDS: HEPARIN SODIUM/DEXTROSE 25,000 UNITS/500 ML BAG IV SCH (23:13)
[2023-04-12 23:44] LABS: Hematocrit (blood only) 22.9 % (42.0-52.0); Hemoglobin 7.8 g/dl (14.0-18.0)
[2023-04-13] MEDS: HEPARIN SODIUM/DEXTROSE 25,000 UNITS/500 ML BAG IV SCH (01:32)
[2023-04-13] MEDS: METOPROLOL TARTRATE 25 MG TAB PO SCH ×3 (05:54→18:11)
[2023-04-13 06:27] LABS: Hematocrit (blood only) 22.4 % (42.0-52.0); Hemoglobin 7.6 g/dl (14.0-18.0); Mean Corpuscular Hemoglobin 31.7 pg (25.0-34.0); Mean Corpuscular Hgb Conc 33.9 g/dL (32.0-36.0); Mean Corpuscular Volume 93.3 fL (80.0-100.0); Mean Platelet Volume 10.4 fL (9.4-12.4); Nucleated RBC # (auto) 0.04 K/uL (0-0.12); Nucleated RBC % (auto) 0.3 %; Platelet Count 247 K/uL (130-400); RDW Coefficient of Variation 13.4 % (11.5-14.5); RDW Standard Deviation 46.5 fL (36.4-46.3); White Blood Count 15.94 K/ul (4.8-10.8)
[2023-04-13 06:45] LABS: BUN Creatinine Ratio 23.8 (10-20); Calcium 8.6 mg/dl (8.6-10.3); Creatinine Clr Calc Pharmacy 16.5 ml/min; Est GFR (African American) 19.2 ml/min; Est GFR (Non-African American) 16.6 ml/min; Potassium 4.7 mmol/L (3.5-5.1)
[2023-04-13 06:53] LABS: Troponin I High Sensitivity 104.4 pg/ml (0-20)
--- NOTE | 2023-04-13 07:10 | Communication Note ---
Date of Service: April 13, 2023 Due to drop of hemoglobin in AM, heparin drip will be discontinued.
[2023-04-13] MEDS ORDERED: ONDANSETRON INJ 2 MG/ML 2 ML VIAL IV PRN (07:56)
[2023-04-13] MEDS: DICLOFENAC SOD 1% GEL 100 GM TUBE EXT SCH ×3 (08:29→20:21)
[2023-04-13] MEDS: DOCUSATE SODIUM 100 MG CAP PO SCH (08:30)
[2023-04-13] MEDS: CALCIUM 600MG + VIT D 400 IU TAB PO SCH (08:30)
[2023-04-13] MEDS: POLYETHYLENE (MIRALAX) 17 GM PACK PO SCH (08:30)
[2023-04-13] MEDS: BENZONATATE 100 MG CAPSULE PO SCH ×3 (08:30→20:21)
[2023-04-13] MEDS: ASPIRIN 81 MG ECTAB PO SCH (08:30)
[2023-04-13] MEDS: guaiFENesin 600 MG TABCR PO SCH ×2 (08:30→20:20)
[2023-04-13] MEDS: SENNA 8.6 MG TAB PO SCH (08:31)
[2023-04-13] MEDS: CLOPIDOGREL BISULFATE 75 MG TAB PO SCH (08:31)
[2023-04-13] MEDS: ISOSORBIDE MONO EXTENDED REL 60 MG TABCR PO SCH (08:31)
[2023-04-13] MEDS: CYANOCOBALAMIN (B-12) 500 MCG TABLET PO SCH (08:31)
[2023-04-13] MEDS: FOLIC ACID 400 MCG TAB PO SCH (08:31)
[2023-04-13] MEDS: PANTOprazole 40 MG TAB PO SCH (08:31)
[2023-04-13] MEDS: MULTIVITAMIN TAB PO SCH (08:32)
[2023-04-13] MEDS: LOSARTAN POTASSIUM 50 MG TAB PO SCH (08:32)
[2023-04-13] MEDS: ACETAMINOPHEN 325 MG TAB PO SCH ×4 (08:32→20:19)
[2023-04-13] MEDS ORDERED: SODIUM CHLORIDE 0.9% 250 ML IV PRN (09:09)
--- NOTE | 2023-04-13 10:56 | XRay Report ---
XR chest 1V portable HISTORY: hypoxia COMPARISON: Chest 04/09/2023. FINDINGS: There are low lung volumes with mild elevation the right hemidiaphragm. Bibasilar linear de nsities persist. No pneumothorax. No pleural effusions. The heart remains top normal in size. There a re poststernotomy changes. The upper lung zones are clear. No evidence for pulmonary edema. Degenerat yaniv changes within the shoulders again noted. IMPRESSION: No significant change compared to the prior study. No acute process. ACT 112: Negative or not required by law. Electronically signed by: Viral Rachel M.D. 04/13/2023 10:55 AM
--- NOTE | 2023-04-13 12:23 | Ultrasound Report ---
RENAL ULTRASOUND HISTORY: acute renal failure COMPARISON: None. FINDINGS: Right kidney: 10.6 cm. No hydronephrosis. There is a 1.2 cm cyst. There is moderate cortical thinning with increased cortical echogenicity. Left kidney: 10.5 cm. No hydronephrosis. A few cysts with the largest measuring 4 cm. There is modera te cortical thinning with increased cortical echogenicity. Bladder: No bladder wall thickening. The bilateral ureteral jets were not identified. IMPRESSION: 1. No hydronephrosis. 2. Bilateral renal cysts. 3. Moderate cortical thinning with increased cortical echogenicity. This suggests medical renal disea se. ACT 112: Negative or not required by law. Electronically signed by: Viral Rachel M.D. 04/13/2023 12:22 PM
--- NOTE | 2023-04-13 12:27 | Nephrology Consultation ---
Date of Consultation April 13, 2023 Assessment & Plan (1) Acute kidney injury: (2) Hyponatremia: (3) Metabolic acidosis: (4) Viral pneumonia: (5) Anemia: Plan 86-year-old gentlemen with history of stage IIIB CKD baseline creatinine 1.5 and history of coronary artery disease, admitted with viral pneumonia with rhinovirus. On admission renal function was stable at baseline however over last 3 days renal function rapidly worsen with creatinine down to 3.2 this morning associated with hyponatremia and metabolic acidosis. Reports voiding normally although unmeasured. No urinalysis or renal imaging available. Also found to have unstable angina with elevated troponin, started on heparin drip however stop the heparin drip this morning due to significant drop in hemoglobin to 7.6 this morning with admission hemoglobin above 11. Unclear etiology for rapid worsening of renal function over last few days, could be hemodynamically mediated although blood pressure has been relatively stable. Cannot exclude possibility for postrenal obstruction, acute interstitial nephrit is, Glomerular disease or other etiology. -- check urinalysis, renal ultrasound for further evaluation. Considering significant drop in hemoglobin, abdominal distension and rapid worsening of leidy l function, eventually may need to consider CT abdomen pelvis for further evaluation. -- Accurate intake and output, encourage p.o. intake -- avoid all nephrotoxic medications however, okay to continue on losartan for now unless significant hypertension or hyperkalemia. Thank you for allowing me to participate in your patient's care. It was a pleasure to see Randy. History of Present Illness Reason for Consultation: Acute kidney injury. Attending Physician: Clark Garcia MD History of Present Illness Mr. Randy Lopez is a 87 y o m with PMH of stage 3b CKD, b/l cr 1.5 at least since 2018, admitted with viral pneumonia and unstable angina. Nephrology consult was requested to manage FRANSISCO, hyponatremia and metabolic acidosis. EMR records were reviewed in detail during visit. Randy was admitted on 04/07/23 with viral pneumonia after he was sent from [facility] after he presented with 1 week h/o cough.on Admission CXR showed b/l pneumonia, viral panel was positive for Rhinovirus. He was also found to have elevated troponin and started on heparin drip. On admission creatinine was 1.5 which has been slowly increasing but over last 2 days creatinine increased significantly, yesterday creatinine was 2.1 and this morning lab showed creatinine 3.2, BUN 76. He also noted to have significant drop in hemoglobin from 11.2 on admission to 7.6 this morning. No urinalysis or renal imaging available. This morning labs also notable for sodium of 129 and bicarbonate 20. BP acceptable, no hypertension. Past medical history significant for stage IIIB CKD, b/l cr around 1.5 most likely secondary to microvascular disease. History of coronary artery disease CABG in and over last several years had multiple PCI and stent. No history of diabetes, no NSAID use. On Losartan 50 mg/d. He reports voiding normally, denied gross hematuria, dysuria but reports incomplete voiding and nocturia. Reports shortness of breath with activity but not at rest. No CP. Reports abdominal distention but has been passing gas. Appetite and po intake has been poor. Allergies Allergy/AdvReac Type Severity Reaction Status Date / Time No Known Allergies Allergy Verified 04/07/23 17:33 Home Medications Medication Instructions Recorded Confirmed Type aspirin 81 mg tablet,delayed 81 mg PO DAILY 02/26/22 04/07/23 History release clopidogrel 75 mg tablet (Plavix) 75 mg PO DAILY 02/26/22 04/07/23 History isosorbide dinitrate 30 mg tablet 30 mg PO DAILY 02/26/22 04/07/23 History simvastatin 80 mg tablet 40 mg PO DAILY 02/26/22 04/07/23 History acetaminophen 650 mg 1,300 mg PO Q12H 04/07/23 04/07/23 History tablet,extended release azelastine 137 mcg (0.1 %) nasal 1 spray intranasal DAILY 04/07/23 04/07/23 History spray aerosol calcium carbonate 600 mg-vitamin 1 tab PO DAILY 04/07/23 04/07/23 History D3 10 mcg (400 unit) tablet (Calcium 600 + D(3)) coenzyme Q10 100 mg capsule 100 mg PO DAILY 04/07/23 04/07/23 History (CoQ-10) cyanocobalamin (vitamin B-12) 1,000 mcg PO DAILY 04/07/23 04/07/23 History 1,000 mcg tablet (Vitamin B-12) docusate sodium 100 mg capsule 200 mg PO DAILY 04/07/23 04/07/23 History (Stool Softener) folic acid 800 mcg tablet 0.8 mg PO DAILY 04/07/23 04/07/23 History losartan 100 mg tablet 50 mg PO DAILY 04/07/23 04/07/23 History metoprolol tartrate 50 mg tablet 25 mg PO BID 04/07/23 04/07/23 History multivitamin 1 tab PO DAILY 04/07/23 04/07/23 History Patient History Medical History (Updated 04/13/23 @ 13:01 by Traci Irvin MD) Acute kidney injury Hyponatremia Metabolic acidosis Social History (Updated 04/07/23 @ 19:58 by Kristian Nagy MD) Smoking Status: Former smoker Hx Alcohol Use: Yes Hx Substance Use: No Preferred Language: Cambodian Communication Ability: Effective Observer [employer] Required: No Beliefs That Will Affect Care: None Current Living Situation: Alone Current Living Situation Comment: Lives at home. passed in 2021 Feels Safe at Home: Yes Safety Concerns: Feels Safe At This Time Assistive Devices: Cane, Glasses and Walker Review of Systems Review of Systems: Detail ROS was otherwise unremarkable. Physical Exam Constitutional: WD/WN, vitals as above no acute distress Eyes: + anicteric sclerae Neck: normal visual inspection Respiratory: no respiratory distress Auscultation: lungs clear to auscultation bilaterally Cardiovascular: Rate/Rhythm: regular rate and regular rhythm Heart Sounds: normal S1 and normal S2 Extremities: no edema Gastrointestinal (Abdomen): Inspection/Auscultation: + abdomen distended and normal bowel sounds Percussion/Palpation: + abdomen rigid; abdomen nontender and no guarding Musculoskeletal: Extremities: extremities normal to inspection Skin: no rashes, warm and dry Neurologic: no focal motor deficits and not confused Psychiatric: Orientation: alert and oriented x 3 Affect: euthymic affect Results & Data Vital Signs (Past 12 Hours) Vital Signs Temp Pulse Pulse Resp BP BP Pulse Ox 04/13/23 12:20 36.5 C 80 18 92/53 L 96 04/13/23 06:01 76 04/13/23 07:37 36.5 C 81 16 134/83 97 04/13/23 05:06 36.3 C L 80 20 135/72 98 O2 Del Method O2 Flow Rate 04/13/23 12:20 04/13/23 06:01 04/13/23 07:37 Nasal Cannula 1.5 04/13/23 05:06 Nasal Cannula 2 PG Care Time/CCT Total # of Minutes Spent Total Time Spent with Patient: Total time spent is greater than 50% in coordination of care (as documented) at patient's floor/unit and/or counseling patient: Coding Level of Care Code 97563 IN/OBS CONSULT LVL 5,80M Diagnoses Acute kidney injury N17.9 Hyponatremia E87.1 Metabolic acidosis E87.20 Viral pneumonia J12.9 Anemia D64.9 Anemia type: unspecified type (5) Anemia Anemia type: unspecified type Qualified Code(s): D64.9 - Anemia, unspecified
[2023-04-13 12:36] LABS: Appearance Urine Clear (Clear); Bacteria Urine Automated Negative (Negative); Bilirubin Urine Negative (Negative); Blood Urine Negative (Negative); Color Urine Dark Yellow; Glucose Urine UA Negative (Negative); Ketones Urine Trace (Negative); Leukocyte Esterase Urine Trace (Negative); Nitrite Urine Negative (Negative); Protein Urine Negative (Negative); Specific Gravity Urine 1.022 (1.000-1.030); Urobilinogen Urine Negative (Negative)
--- NOTE | 2023-04-13 14:59 | Hospitalist Progress Note ---
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 Heparin drip was discontinued due to anemia. Continue current medical management. Cardiology consultation and recommendations appreciated. Imdur uptitrated this admission. (2) Acute bronchitis due to Rhinovirus: Plan: BioFire + for rhinovirus. CXR x 3 without obvious pneumonia. Parenteral steroid therapy has been discontinued. Nebulizers as needed. (3) CAD (coronary artery disease): Plan: h/o 6-vessel CABG in the early . NUMEROUS stents since that time, all of which were placed at [facility] except for 1 stent at the hospital in [place]? Imdur dosage uptitrated this admission. Cont losartan, metoprolol, simvastatin, asa, plavix. (4) Hx of CABG: Plan: Medical management. Appreciate cardiology consultation (5) Chronic renal failure (CRF), stage 3b: Plan: Acute on chronic renal failure at this time. Creatinine has increased to 3.1. Renal ultrasound negative for obstruction. Appreciate nephrology consultation and recommendations. Serial labs (6) Elevated troponin: Plan: minimal elevation at admission was likely myocardial demand ischemia. Medical management. Appreciate cardiology recommendations (7) DVT prophylaxis: Plan: SCDs and ambulation. Heparin drip has been discontinued (8) T2DM (type 2 diabetes mellitus): Plan: a1c 6.8%. ADA diet. Sliding scale coverage as needed (9) Abdominal distension: Plan: 2nd constipation - moderate stool on KUB . Now on miralax and senna. Noncontrast abdominal CT scan report pending Plan To be determined. He may need short-term rehab placement Admission and Anticipated Discharge Date Admission Date: April 09, 2023 Subjective Alert and oriented. No complaints. Son is at the bedside. Creatinine has risen to 3.1. Nephrology consulted for assistance in management. Renal ultraso und negative for obstruction. Heparin drip had to be discontinued due to drop in hemoglobin down to 7.6. No overt GI bleeding however. Abdomen CT scan ordered to rule out retroperitoneal hemorrhage. Chest x-ray was repeated and reveals elevated right hemidiaphragm with no overt CHF. Fecal occult blood pending. Review of Systems Review of Systems: Constitutional-no fever or chills ENT-no blurred vision, no double vision, no epistaxis, no sore throat Respiratory-no cough, no wheezing. Short of breath with minimal exertion Cardiac-no palpitations, no syncope. Denies chest pain in the last 24 hours GI-no nausea, vomiting, diarrhea, melena, hematochezia -no urinary retention, no urinary incontinence, no dysuria, no hematuria Musculoskeletal-no joint pain, no muscle tenderness Skin-no bruising, no rashes, no pruritus Neuro-generalized weakness noted. No focal deficits Psych-depressed affect Physical Exam Physical Exam: General-alert and oriented x3, no fevers, no chills HEENT-head atraumatic and normocephalic, pupils equal and reactive to light, extraocular muscles intact Neck-no lymphadenopathy or thyromegaly, trachea midline Chest-dullness and diminished breath sounds at the right base. No rales. No rhonchi Cardiac-regular rate and rhythm, normal S1 and S2 Abdomen-normal bowel sounds, nontender, no hepatosplenomegaly Extremities-no cyanosis, clubbing, or edema Neuro-cranial nerves II through XII intact, motor and sensory function within normal limits, strength symmetrical with generalized weakness, no focal deficits Psych-depressed affect Skinpallor noted Results & Data Results & Data Vital Signs (Past 12 Hours) Vital Signs Temp Pulse Pulse Resp BP BP Pulse Ox 04/13/23 13:53 36.4 C L 70 15 133/82 98 04/13/23 13:21 36.5 C 76 98/61 L 100 04/13/23 12:40 36.5 C 78 18 112/70 100 04/13/23 12:20 36.5 C 80 18 92/53 L 96 04/13/23 06:01 76 04/13/23 07:37 36.5 C 81 16 134/83 97 04/13/23 05:06 36.3 C L 80 20 135/72 98 O2 Del Method O2 Flow Rate 04/13/23 13:53 Nasal Cannula 2 04/13/23 13:21 04/13/23 12:40 2 04/13/23 12:20 04/13/23 06:01 04/13/23 07:37 Nasal Cannula 1.5 04/13/23 05:06 Nasal Cannula 2 Laboratory Results 04/13/23 05:58 04/13/23 05:58 PG Care Time/CCT Total # of Minutes Spent Total Time Spent with Patient: Total time spent is greater than 50% in coordination of care (as documented) at patient's floor/unit and/or counseling patient: Coding Level of Care Code 34551 SUB INP/OBS CARE 3/50MIN Diagnoses 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
--- NOTE | 2023-04-13 18:11 | Electrocardiogram Report ---
Test Reason : Blood Pressure : / mmHG Vent. Rate : 079 BPM Atrial Rate : 079 BPM P-R Int : 188 ms QRS Dur : 086 ms QT Int : 388 ms P-R-T Axes : 052 -11 -24 degrees QTc Int : 444 ms Normal sinus rhythm Normal ECG When compared with ECG of 10-APR-2023 16:20, Criteria for Anterior infarct are no longer Present Confirmed by Hansel Burr ([id number]) on 04/13/2023 6:10:54 PM Referred By: REFERRED SELF Confirmed By:Low Burr
--- NOTE | 2023-04-13 19:16 | Cardiology Progress Note ---
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 Chest pain: 1 recurrent episode after emotional disturbance yesterday. Certainly possible this represents a form of angina. However, we will approach this cautiously and attempt conservative measures given his comorbidities. At this point there is no pressing indication for intervention. Not a good candidate at this time for invasive intervention given concerns over bleeding and declining renal function. 2. Elevated troponin: Very mild elevation with slow rise. Less indicative of an acute coronary syndrome but more indicative of his chronic medical condition and transient hypoxia. Treatment as above. 3. Coronary disease: Extensive cardiovascular history including peripheral vascular disease as well. he is on high-dose simvastatin. We can check his lipids in the morning. Will continue dual anti-platelet therapy. 4. Anemia: The concern is for GI losses. Heparin was discontinued today. No melena or evidence of active bleeding although he does have some symptoms of nausea and right lower quadrant pain. Admission and Anticipated Discharge Date Admission Date: April 09, 2023 Subjective This afternoon the patient complained primarily of fatigue. He did have some right lower quadrant and right hip pain over the course of the last 24 hours. This limited his mobility to some degree. He did report an episode of chest discomfort yesterday after having an unpleasant conversation with a relative. He believes this lasted approximately 15 minutes and resolved on its own. He requested an EKG during that time. The symptom of chest pain was distinct from those he experienced earlier in his admission. No symptoms with activity. No symptoms since. Review of Systems Review of Systems: Per HPI. Some nausea but no vomiting. Physical Exam Physical Exam: The patient is alert and oriented. Mood and affect appeared normal. He answered all questions appropriately. HEENT: Pupils are equal and reactive to light and accommodation. Extraocular movements are intact. The sclerae are anicteric. Neuro: Cranial nerves intact Lungs: Clear to auscultation bilaterally. He has good air movement without use of accessory muscles. No rales wheezes or rhonchi. Cardiac: Heart demonstrates a regular rate and rhythm. Normal S1 and S2. No murmurs on examination. Pulses: The patient has palpable radial pulses bilaterally that are equal in intensity Extremities: There was no evidence of hypoperfusion. There is no cyanosis or clubbing. minimal edema Skin: I did not appreciate any rashes on examination today. Results & Data Vital Signs (Past 12 Hours) Vital Signs Temp Pulse Pulse Resp BP BP Pulse Ox 04/13/23 16:03 36.8 C 71 16 111/56 L 98 04/13/23 16:50 36.7 C 88 20 121/96 100 04/13/23 16:31 36.9 C 69 18 141/58 H 98 04/13/23 16:30 36.9 C 69 18 141/58 H 98 04/13/23 14:15 72 04/13/23 15:49 36.7 C 72 20 102/64 100 04/13/23 13:53 36.4 C L 70 15 133/82 98 04/13/23 14:53 36.7 C 72 129/83 100 04/13/23 13:21 36.5 C 76 98/61 L 100 04/13/23 12:40 36.5 C 78 18 112/70 100 04/13/23 12:20 36.5 C 80 18 92/53 L 96 04/13/23 07:37 36.5 C 81 16 134/83 97 O2 Del Method O2 Flow Rate 04/13/23 16:03 1 04/13/23 16:50 2 04/13/23 16:31 2 04/13/23 16:30 2 04/13/23 14:15 04/13/23 15:49 Nasal Cannula 04/13/23 13:53 Nasal Cannula 2 04/13/23 14:53 4 04/13/23 13:21 04/13/23 12:40 2 04/13/23 12:20 04/13/23 07:37 Nasal Cannula 1.5 Laboratory Results Abnormal Lab Results 04/12/23 04/12/23 04/13/23 23:25 23:25 05:58 WBC 15.94 H RBC 2.40 L Hgb 7.8 L 7.6 L Hct 22.9 L 22.4 L MCV 93.3 MCH 31.7 MCHC 33.9 RDW Std Deviation 46.5 H RDW Coeff of Daniel 13.4 Plt Count 247 MPV 10.4 Absolute Nucleated RBC 0.04 Nucleated RBC % (auto) 0.3 Sodium Potassium Chloride Carbon Dioxide Anion Gap BUN Creatinine Est Cr Clr Drug Dosing Est GFR ( Amer) Est GFR (Non-Af Amer) BUN/Creatinine Ratio Glucose POC Glucose Osmolality Calcium Troponin I High Sens 115.6 H* Urine Color Urine Appearance Urine pH Ur Specific [place] Urine Protein Urine Glucose (UA) Urine Ketones Urine Blood Urine Nitrite Urine Bilirubin Urine Urobilinogen Ur Leukocyte Esterase Urine WBC (Auto) Urine RBC (Auto) U Hyaline Cast (Auto) U Epithel Cells (Auto) Urine Bacteria (Auto) Blood Type Blood Type Recheck Antibody Screen Crossmatch 04/13/23 04/13/23 04/13/23 05:58 05:58 07:56 WBC RBC Hgb Hct MCV MCH MCHC RDW Std Deviation RDW Coeff of Daniel Plt Count MPV Absolute Nucleated RBC Nucleated RBC % (auto) Sodium 129 L Potassium 4.7 Chloride 97 L Carbon Dioxide 20 L Anion Gap 12 H BUN 76 H Creatinine 3.19 H D Est Cr Clr Drug Dosing 16.5 Est GFR ( Amer) 19.2 Est GFR (Non-Af Amer) 16.6 BUN/Creatinine Ratio 23.8 H Glucose 164 H POC Glucose 194 H Osmolality Calcium 8.6 Troponin I High Sens 104.4 H* Urine Color Urine Appearance Urine pH Ur Specific [place] Urine Protein Urine Glucose (UA) Urine Ketones Urine Blood Urine Nitrite Urine Bilirubin Urine Urobilinogen Ur Leukocyte Esterase Urine WBC (Auto) Urine RBC (Auto) U Hyaline Cast (Auto) U Epithel Cells (Auto) Urine Bacteria (Auto) Blood Type Blood Type Recheck B Positive Antibody Screen Crossmatch 04/13/23 04/13/23 04/13/23 09:23 09:23 12:05 WBC RBC Hgb Hct MCV MCH MCHC RDW Std Deviation RDW Coeff of Daniel Plt Count MPV Absolute Nucleated RBC Nucleated RBC % (auto) Sodium Potassium Chloride Carbon Dioxide Anion Gap BUN Creatinine Est Cr Clr Drug Dosing Est GFR ( Amer) Est GFR (Non-Af Amer) BUN/Creatinine Ratio Glucose POC Glucose Osmolality 300 Calcium Troponin I High Sens Urine Color Dark Yellow Urine Appearance Clear Urine pH 5.0 Ur Specific [place] 1.022 Urine Protein Negative Urine Glucose (UA) Negative Urine Ketones Trace H Urine Blood Negative Urine Nitrite Negative Urine Bilirubin Negative Urine Urobilinogen Negative Ur Leukocyte Esterase Trace H Urine WBC (Auto) 1-5 Urine RBC (Auto) 5-10 H U Hyaline Cast (Auto) 5-10 H U Epithel Cells (Auto) 5-10 H Urine Bacteria (Auto) Negative Blood Type B Positive Blood Type Recheck Antibody Screen NEGATIVE Crossmatch See Detail 04/13/23 17:07 WBC RBC Hgb Hct MCV MCH MCHC RDW Std Deviation RDW Coeff of Daniel Plt Count MPV Absolute Nucleated RBC Nucleated RBC % (auto) Sodium Potassium Chloride Carbon Dioxide Anion Gap BUN Creatinine Est Cr Clr Drug Dosing Est GFR ( Amer) Est GFR (Non-Af Amer) BUN/Creatinine Ratio Glucose POC Glucose 154 H Osmolality Calcium Troponin I High Sens Urine Color Urine Appearance Urine pH Ur Specific [place] Urine Protein Urine Glucose (UA) Urine Ketones Urine Blood Urine Nitrite Urine Bilirubin Urine Urobilinogen Ur Leukocyte Esterase Urine WBC (Auto) Urine RBC (Auto) U Hyaline Cast (Auto) U Epithel Cells (Auto) Urine Bacteria (Auto) Blood Type Blood Type Recheck Antibody Screen Crossmatch Diagnostic Findings chest x-ray obtained the time of admission and 2 days later did not reveal any acute cardiopulmonary process. Abdominal x-ray did not reveal any evidence of obstruction. No free air. Echocardiogram obtained 04/10/2023: Ejection fraction greater than 70%. Severe LVH. Mildly reduced RV systolic function. No significant valvular heart disease. Cardiac perfusion study 08/2021: Infarct and ischemia in the inferior wall. Cardiac catheterization 09/2021: left main: 70% ostial stenosis, Lad 100% occluded in its midportion, left circumflex 80% proximal stenosis, right coronary 100% occluded, youssef to LAD widely patent, SVG to OM 2 is occluded, SVG to RCA is occluded, SVG to PDA is occluded, SVG to diagonal occluded, SVG to OM3 80% proximal stenosis. ECG Additional Comments: EKG demonstrated normal sinus rhythm with some T-wave inversions in the in ferior leads. 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
[2023-04-13] MEDS: SIMVASTATIN 40 MG TAB PO SCH (20:21)
[2023-04-14] MEDS: MELATONIN 3 MG TAB PO PRN (00:08)
[2023-04-14] MEDS: METOPROLOL TARTRATE 25 MG TAB PO SCH ×5 (00:09→23:05)
[2023-04-14 06:23] LABS: Basophils # (auto) 0.03 K/uL (0-0.2); Basophils % (auto) 0.2 %; Eosinophils # (auto) 0.07 K/uL (0-0.50); Eosinophils % (auto) 0.5 %; Hematocrit (blood only) 25.6 % (42.0-52.0); Hemoglobin 8.8 g/dl (14.0-18.0); Immature Granulocytes # (auto) 0.37 K/uL (0.01-0.20); Immature Granulocytes % (auto) 2.5 %; Lymphocytes # (auto) 1.18 K/uL (1.2-3.4); Lymphocytes % (auto) 7.9 %; Mean Corpuscular Hemoglobin 30.9 pg (25.0-34.0); Mean Corpuscular Hgb Conc 34.4 g/dL (32.0-36.0); Mean Corpuscular Volume 89.8 fL (80.0-100.0); Mean Platelet Volume 10.2 fL (9.4-12.4); Monocytes # (auto) 1.75 K/uL (0.11-0.59); Monocytes % (auto) 11.8 %; Neutrophils # (auto) 11.47 K/uL (1.40-6.50); Neutrophils % (auto) 77.1 %; Nucleated RBC # (auto) 0.06 K/uL (0-0.12); Nucleated RBC % (auto) 0.4 %; Platelet Count 217 K/uL (130-400); RDW Coefficient of Variation 15.3 % (11.5-14.5); Red Blood Count 2.85 M/uL (4.70-6.10); White Blood Count 14.87 K/ul (4.8-10.8)
[2023-04-14 06:57] LABS: Creatinine Clr Calc Pharmacy 13.8 ml/min; Est GFR (African American) 15.5 ml/min; Est GFR (Non-African American) 13.4 ml/min
[2023-04-14 06:58] LABS: BUN Creatinine Ratio 23.1 (10-20); Calcium 8.3 mg/dl (8.6-10.3); Potassium 5.6 mmol/L (3.5-5.1)
[2023-04-14] MEDS ORDERED: PATIROMER CALCIUM SORBITEX 8.4 GM PACK PO STA (08:38)
[2023-04-14] MEDS: POLYETHYLENE (MIRALAX) 17 GM PACK PO SCH (09:36)
[2023-04-14] MEDS: DICLOFENAC SOD 1% GEL 100 GM TUBE EXT SCH ×3 (09:37→19:42)
[2023-04-14] MEDS: ACETAMINOPHEN 325 MG TAB PO SCH ×4 (09:37→19:43)
[2023-04-14] MEDS: CYANOCOBALAMIN (B-12) 500 MCG TABLET PO SCH (09:38)
[2023-04-14] MEDS: ISOSORBIDE MONO EXTENDED REL 60 MG TABCR PO SCH (09:38)
[2023-04-14] MEDS: FOLIC ACID 400 MCG TAB PO SCH (09:38)
[2023-04-14] MEDS: ASPIRIN 81 MG ECTAB PO SCH (09:38)
[2023-04-14] MEDS: MULTIVITAMIN TAB PO SCH (09:38)
[2023-04-14] MEDS: DOCUSATE SODIUM 100 MG CAP PO SCH (09:38)
[2023-04-14] MEDS: SENNA 8.6 MG TAB PO SCH (09:39)
[2023-04-14] MEDS: PANTOprazole 40 MG TAB PO SCH (09:39)
[2023-04-14] MEDS: guaiFENesin 600 MG TABCR PO SCH ×2 (09:39→19:42)
[2023-04-14] MEDS: BENZONATATE 100 MG CAPSULE PO SCH ×3 (09:39→19:43)
[2023-04-14] MEDS: CALCIUM 600MG + VIT D 400 IU TAB PO SCH (09:39)
[2023-04-14] MEDS: CLOPIDOGREL BISULFATE 75 MG TAB PO SCH (09:39)
--- NOTE | 2023-04-14 10:32 | Nephrology Progress Note ---
Date of Service April 14, 2023 Assessment & Plan (1) Acute kidney injury: (2) Hyponatremia: (3) Metabolic acidosis: (4) Viral pneumonia: (5) Anemia: Plan 86-year-old gentlemen with history of stage IIIB CKD baseline creatinine 1.5 and history of coronary artery disease, admitted with viral pneumonia with rhinovirus. On admission renal function was stable at baseline however over last 3 days renal function rapidly worsen with creatinine down to 3.2 this morning associated with hyponatremia and metabolic acidosis. Reports voiding normally although unmeasured. No urinalysis or renal imaging available. Also found to have unstable angina with elevated troponin, started on heparin drip however stop the heparin drip this morning due to significant drop in hemoglobin to 7.6 this morning with admission hemoglobin above 11. Renal function continues to worsen progressively, creatinine up to 3.8, potassium 5.6. The sodium remained low at 129. Unclear etiology for rapid worsening of renal function over last few days, could be hemodynamically mediated although blood pressure has been relatively stable. renal ultrasound negative for postrenal obstruction. Urinalysis with no proteinuria, significant hematuria pyuria, argues against any underlying intrinsic glomerular disease or interstitial disease. --discontinue losartan, change diet to low-potassium diet, give 1 dose of Veltassa. Start on gentle IV fluid normal saline at 80 mL/hour, monitor respiratory status closely with history of significant coronary artery disease, repeat renal panel and electrolytes this afternoon. -- accurate intake and output, encourage p.o. intake -- avoid all nephrotoxic medications however, okay to continue on losartan for now unless significant hypertension or hyperkalemia. Admission and Anticipated Discharge Date Admission Date: April 09, 2023 Review of Systems Review of Systems: Detail ROS was otherwise unremarkable. Physical Exam Constitutional: WD/WN, vitals as above no acute distress Eyes: + anicteric sclerae Neck: normal visual inspection Respiratory: no respiratory distress Auscultation: lungs clear to auscultation bilaterally Cardiovascular: RRR, no murmur, no edema Gastrointestinal (Abdomen): Inspection/Auscultation: + abdomen distended and normal bowel sounds Percussion/Palpation: + abdomen rigid; abdomen nontender and no guarding Musculoskeletal: Extremities: extremities normal to inspection Skin: no rashes, warm and dry Neurologic: no focal motor deficits and not confused Psychiatric: Orientation: alert and oriented x 3 Affect: euthymic affect Results & Data Vital Signs (Past 12 Hours) Vital Signs Temp Pulse Pulse Resp BP BP Pulse Ox 04/14/23 07:34 36.5 C 76 16 119/73 97 04/14/23 06:15 78 127/76 04/14/23 00:00 69 04/14/23 04:15 36.5 C 75 16 110/66 97 O2 Del Method O2 Flow Rate 04/14/23 07:34 Room Air 04/14/23 06:15 04/14/23 00:00 04/14/23 04:15 Nasal Cannula 1 PG Care Time/CCT Total # of Minutes Spent Total Time Spent with Patient: Total time spent is greater than 50% in coordination of care (as documented) at patient's floor/unit and/or counseling patient: Coding Level of Care Code 71116 SUB INP/OBS CARE 3/50MIN Diagnoses Acute kidney injury N17.9 Hyponatremia E87.1 Metabolic acidosis E87.20 Viral pneumonia J12.9 Anemia D64.9 Anemia type: unspecified type (5) Anemia Anemia type: unspecified type Qualified Code(s): D64.9 - Anemia, unspecified
[2023-04-14] MEDS: SODIUM CHLORIDE 0.9% 1000ML 1,000 ML IV SCH ×2 (11:39→23:06)
[2023-04-14] MEDS ORDERED: PATIROMER CALCIUM SORBITEX 8.4 GM PACK PO ONE (12:00)
[2023-04-14 15:48] LABS: Albumin Level 3.8 gm/dl (3.4-5.0); Calcium 8.6 mg/dl (8.6-10.3); Creatinine Clr Calc Pharmacy 14.6 ml/min; Est GFR (African American) 16.5 ml/min; Est GFR (Non-African American) 14.2 ml/min; Phosphorus 5.1 mg/dl (2.5-4.9); Potassium 5.3 mmol/L (3.5-5.1)
--- NOTE | 2023-04-14 15:53 | Hospitalist Progress Note ---
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 Now appears to have stabilized. Continue current medical management. Cardiology consultation and recommendations appreciated. Imdur uptitrated this admission. (2) Acute bronchitis due to Rhinovirus: Plan: [employer] + for rhinovirus. Multiple chest x-rays negative for pneumonia. Parenteral steroid therapy has been discontinued. Nebulizers as needed. (3) CAD (coronary artery disease): Plan: h/o 6-vessel CABG in the early . Multiple stents since that time, all of which were placed at [facility] except for 1 stent at the hospital in [place]. Imdur dosage uptitrated this admission. Losartan has been discontinued due to renal failure. Cont metoprolol, simvastatin, asa, plavix. (4) Hx of CABG: Plan: Medical management. Appreciate cardiology consultation (5) Chronic renal failure (CRF), stage 3b: Plan: Acute on chronic renal failure at this time. Creatinine continues to rise. He is now on IV fluids. Renal ultrasound negative for obstruction. Continue to monitor intake and output. Appreciate nephrology consultation and recommendations. Serial labs (6) Elevated troponin: Plan: minimal elevation at admission was likely myocardial demand ischemia. Medical management. Appreciate cardiology recommendations (7) DVT prophylaxis: Plan: SCDs and ambulation. Heparin drip has been discontinued (8) T2DM (type 2 diabetes mellitus): Plan: a1c 6.8%. ADA diet. Sliding scale coverage as needed (9) Abdominal distension: Plan: 2nd constipation - moderate stool on KUB . Now on miralax and senna. Nonco ntrast abdominal CT scan report pending (10) Hyperkalemia: Plan: Due to renal failure. Losartan has been discontinued. [place] Renetta administered today, April 14. He is now on IV fluids also. Serial labs Plan To be determined. He may need short-term rehab placement Admission and Anticipated Discharge Date Admission Date: April 09, 2023 Subjective Alert and oriented. No complaints. Cardiology and nephrology entries noted. He is hyperkalemic and has received a dose of Veltassa today. Creatinine continues to increase and he is now on IV fluids. Losartan has been discontinued. He had 2 bowel movements last evening and it does not appear that abdominal CT scan is needed at this time. Chest x-ray done April 13 was negative for any pulmonary edema or evidence of CHF. Hemoglobin stable at 8.8. Review of Systems Review of Systems: Constitutional-no fever or chills ENT-no blurred vision, no double vision, no epistaxis, no sore throat Respiratory-no cough, no wheezing. Short of breath with minimal exertion Cardiac-no palpitations, no syncope. Denies chest pain in the last 24 hours GI-no nausea, vomiting, diarrhea, melena, hematochezia -no urinary retention, no urinary incontinence, no dysuria, no hematuria Musculoskeletal-no joint pain, no muscle tenderness Skin-no bruising, no rashes, no pruritus Neuro-generalized weakness noted. No focal deficits Psych-depressed affect Physical Exam Physical Exam: General-alert and oriented x3, no fevers, no chills HEENT-head atraumatic and normocephalic, pupils equal and reactive to light, extraocular muscles intact Neck-no lymphadenopathy or thyromegaly, trachea midline Chest-dullness and diminished breath sounds at the right base. No rales. No rhonchi Cardiac-regular rate and rhythm, normal S1 and S2 Abdomen-normal bowel sounds, nontender, no hepatosplenomegaly Extremities-no cyanosis, clubbing, or edema Neuro-cranial nerves II through XII intact, motor and sensory function within normal limits, strength symmetrical with generalized weakness, no focal deficits Psych-depressed affect Skinpallor noted Results & Data Results & Data Vital Signs (Past 12 Hours) Vital Signs Temp Pulse Pulse Resp BP BP Pulse Ox 04/14/23 14:54 36.6 C 71 16 114/57 L 97 04/14/23 06:02 75 04/14/23 11:15 36.6 C 74 16 118/77 97 04/14/23 07:34 36.5 C 76 16 119/73 97 04/14/23 06:15 78 127/76 04/14/23 04:15 36.5 C 75 16 110/66 97 O2 Del Method O2 Flow Rate 04/14/23 14:54 Nasal Cannula 1 04/14/23 06:02 04/14/23 11:15 Nasal Cannula 04/14/23 07:34 Room Air 04/14/23 06:15 04/14/23 04:15 Nasal Cannula 1 Laboratory Results 04/14/23 06:00 04/14/23 15:06 PG Care Time/CCT Total # of Minutes Spent Total Time Spent with Patient: Total time spent is greater than 50% in coordination of care (as documented) at patient's floor/unit and/or counseling patient: Coding Level of Care Code 33943 SUB INP/OBS CARE 3/50MIN Diagnoses 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
--- NOTE | 2023-04-14 17:40 | Cardiology Progress Note ---
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 Chest pain: No recurrent symptoms despite notably lower hemoglobin. Transfused yesterday. Will reassess his symptoms once he is more ambulatory. 2. Elevated troponin: Treated as an NSTEMI based primarily on his symptoms of chest pain. Heparin discontinued at the scheduled time. Will continue dual anti-platelet therapy. Monitor for recurrent symptoms. 3. Coronary disease: Extensive cardiovascular history including peripheral vascular disease as well. he is on high-dose simvastatin. We can check his lipids in the morning. Will continue dual anti-platelet therapy. 4. Anemia: The concern is for GI losses. However, no melena documented. No hematemesis. At this point concern over bleeding, anemia and declining renal function preclude invasive cardiac evaluation in all but the most concerning circumstances. Admission and Anticipated Discharge Date Admission Date: April 09, 2023 Subjective This afternoon the patient claimed he feeling a little bit better. His knee and right hip pain appear to have resolved. He did not describe any abdominal symptoms. He had not been ambulatory or out of bed much today. Did have a bowel movement this morning that he could not describe as he will did not see it. He denied breathing trouble but does have some coughing. Review of Systems Review of Systems: Per HPI Physical Exam Physical Exam: The patient is alert and oriented. Mood and affect appeared normal. He answered all questions appropriately. HEENT: Pupils are equal and reactive to light and accommodation. Extraocular movements are intact. The sclerae are anicteric. Neuro: Cranial nerves intact Lungs: Normal respiratory effort Abdomen: Ecchymosis around the waistline. Cardiac: Heart demonstrates a normal rate. Pulses: The patient has palpable radial pulses bilaterally that are equal in intensity Extremities: There was no evidence of hypoperfusion. There is no cyanosis or clubbing. minimal edema Skin: I did not appreciate any rashes on examination today. Results & Data Vital Signs (Past 12 Hours) Vital Signs Temp Pulse Pulse Resp BP BP Pulse Ox 04/14/23 14:54 36.6 C 71 16 114/57 L 97 04/14/23 06:02 75 04/14/23 11:15 36.6 C 74 16 118/77 97 04/14/23 07:34 36.5 C 76 16 119/73 97 04/14/23 06:15 78 127/76 O2 Del Method O2 Flow Rate 04/14/23 14:54 Nasal Cannula 1 04/14/23 06:02 04/14/23 11:15 Nasal Cannula 04/14/23 07:34 Room Air 04/14/23 06:15 Laboratory Results Abnormal Lab Results 04/13/23 04/14/23 04/14/23 22:45 06:00 06:00 WBC 14.87 H RBC 2.85 L Hgb 9.0 L 8.8 L Hct 26.0 L 25.6 L MCV 89.8 MCH 30.9 MCHC 34.4 RDW Std Deviation 50.0 H RDW Coeff of Daniel 15.3 H Plt Count 217 MPV 10.2 Immature Gran % (Auto) 2.5 Neut % (Auto) 77.1 Lymph % (Auto) 7.9 [place] % (Auto) 11.8 Eos % (Auto) 0.5 Baso % (Auto) 0.2 Neut # (Auto) 11.47 H Lymph # (Auto) 1.18 L [place] # (Auto) 1.75 H Eos # (Auto) 0.07 Baso # (Auto) 0.03 Immature Gran # (Auto) 0.37 H Absolute Nucleated RBC 0.06 Nucleated RBC % (auto) 0.4 Sodium 129 L Potassium 5.6 H Chloride 97 L Carbon Dioxide 22 Anion Gap 10 BUN 88 H Creatinine 3.81 H D Est Cr Clr Drug Dosing 13.8 Est GFR ( Amer) 15.5 Est GFR (Non-Af Amer) 13.4 BUN/Creatinine Ratio 23.1 H Glucose 127 H POC Glucose Calcium 8.3 L Phosphorus Albumin 04/14/23 04/14/23 04/14/23 07:42 11:35 15:06 WBC RBC Hgb Hct MCV MCH MCHC RDW Std Deviation RDW Coeff of Daniel Plt Count MPV Immature Gran % (Auto) Neut % (Auto) Lymph % (Auto) [place] % (Auto) Eos % (Auto) Baso % (Auto) Neut # (Auto) Lymph # (Auto) [place] # (Auto) Eos # (Auto) Baso # (Auto) Immature Gran # (Auto) Absolute Nucleated RBC Nucleated RBC % (auto) Sodium 128 L Potassium 5.3 H Chloride 97 L Carbon Dioxide 23 Anion Gap 8 BUN 87 H Creatinine 3.62 H Est Cr Clr Drug Dosing 14.6 Est GFR ( Amer) 16.5 Est GFR (Non-Af Amer) 14.2 BUN/Creatinine Ratio 24.0 H Glucose 139 H POC Glucose 138 H 135 H Calcium 8.6 Phosphorus 5.1 H Albumin 3.8 04/14/23 16:25 WBC RBC Hgb Hct MCV MCH MCHC RDW Std Deviation RDW Coeff of Daniel Plt Count MPV Immature Gran % (Auto) Neut % (Auto) Lymph % (Auto) [place] % (Auto) Eos % (Auto) Baso % (Auto) Neut # (Auto) Lymph # (Auto) [place] # (Auto) Eos # (Auto) Baso # (Auto) Immature Gran # (Auto) Absolute Nucleated RBC Nucleated RBC % (auto) Sodium Potassium Chloride Carbon Dioxide Anion Gap BUN Creatinine Est Cr Clr Drug Dosing Est GFR ( Amer) Est GFR (Non-Af Amer) BUN/Creatinine Ratio Glucose POC Glucose 147 H Calcium Phosphorus Albumin Diagnostic Findings chest x-ray obtained the time of admission and 2 days later did not reveal any acute cardiopulmonary process. Abdominal x-ray did not reveal any evidence of obstruction. No free air. Echocardiogram obtained 04/10/2023: Ejection fraction greater than 70%. Severe LVH. Mildly reduced RV systolic function. No significant valvular heart disease. Cardiac perfusion study 08/2021: Infarct and ischemia in the inferior wall. Cardiac catheterization 09/2021: left main: 70% ostial stenosis, Lad 100% occluded in its midportion, left circumflex 80% proximal stenosis, right coronary 100% occluded, youssef to LAD widely patent, SVG to OM 2 is occluded, SVG to RCA is occluded, SVG to PDA is occluded, SVG to diagonal occluded, SVG to OM3 80% proximal stenosis. ECG Additional Comments: EKG demonstrated normal sinus rhythm with some T-wave inversions in the inferior leads. 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
[2023-04-14] MEDS: SIMVASTATIN 40 MG TAB PO SCH (19:43)
[2023-04-14] MEDS: COUGH DROP (SUGAR FREE) LOZ 24 LOZ/1 BOX BUCCAL PRN (19:48)
[2023-04-15] MEDS: METOPROLOL TARTRATE 25 MG TAB PO SCH ×4 (05:17→23:57)
[2023-04-15 07:37] LABS: Basophils # (auto) 0.02 K/uL (0-0.2); Basophils % (auto) 0.2 %; Eosinophils # (auto) 0.18 K/uL (0-0.50); Eosinophils % (auto) 1.5 %; Hematocrit (blood only) 25.9 % (42.0-52.0); Hemoglobin 8.6 g/dl (14.0-18.0); Immature Granulocytes # (auto) 0.19 K/uL (0.01-0.20); Immature Granulocytes % (auto) 1.6 %; Lymphocytes # (auto) 0.81 K/uL (1.2-3.4); Lymphocytes % (auto) 6.7 %; Mean Corpuscular Hemoglobin 30.5 pg (25.0-34.0); Mean Corpuscular Hgb Conc 33.2 g/dL (32.0-36.0); Mean Corpuscular Volume 91.8 fL (80.0-100.0); Mean Platelet Volume 9.9 fL (9.4-12.4); Monocytes # (auto) 1.53 K/uL (0.11-0.59); Monocytes % (auto) 12.6 %; Neutrophils # (auto) 9.43 K/uL (1.40-6.50); Neutrophils % (auto) 77.4 %; Nucleated RBC # (auto) 0.02 K/uL (0-0.12); Nucleated RBC % (auto) 0.2 %; Platelet Count 230 K/uL (130-400); RDW Coefficient of Variation 15.8 % (11.5-14.5); RDW Standard Deviation 52.2 fL (36.4-46.3); Red Blood Count 2.82 M/uL (4.70-6.10); White Blood Count 12.16 K/ul (4.8-10.8)
[2023-04-15] MEDS: CYANOCOBALAMIN (B-12) 500 MCG TABLET PO SCH (07:51)
[2023-04-15] MEDS: FOLIC ACID 400 MCG TAB PO SCH (07:52)
[2023-04-15] MEDS: DOCUSATE SODIUM 100 MG CAP PO SCH (07:52)
[2023-04-15] MEDS: ACETAMINOPHEN 325 MG TAB PO SCH ×4 (07:52→23:56)
[2023-04-15] MEDS: SENNA 8.6 MG TAB PO SCH (07:53)
[2023-04-15] MEDS: CLOPIDOGREL BISULFATE 75 MG TAB PO SCH (07:53)
[2023-04-15] MEDS: PANTOprazole 40 MG TAB PO SCH (07:53)
[2023-04-15] MEDS: CALCIUM 600MG + VIT D 400 IU TAB PO SCH (07:53)
[2023-04-15] MEDS: ASPIRIN 81 MG ECTAB PO SCH (07:53)
[2023-04-15] MEDS: MULTIVITAMIN TAB PO SCH (07:53)
[2023-04-15] MEDS: BENZONATATE 100 MG CAPSULE PO SCH ×3 (07:53→23:56)
[2023-04-15] MEDS: ISOSORBIDE MONO EXTENDED REL 60 MG TABCR PO SCH (07:54)
[2023-04-15] MEDS: guaiFENesin 600 MG TABCR PO SCH ×2 (07:54→23:57)
[2023-04-15 07:55] LABS: Albumin Level 3.4 gm/dl (3.4-5.0); BUN Creatinine Ratio 25.4 (10-20); Calcium 8.1 mg/dl (8.6-10.3); Chol HDL Ratio 3.1 (0-5); Creatinine Clr Calc Pharmacy 17.7 ml/min; Est GFR (African American) 20.8 ml/min; Est GFR (Non-African American) 17.9 ml/min; Phosphorus 3.8 mg/dl (2.5-4.9); Potassium 5.4 mmol/L (3.5-5.1)
[2023-04-15] MEDS: DICLOFENAC SOD 1% GEL 100 GM TUBE EXT SCH ×3 (07:55→23:57)
[2023-04-15] MEDS ORDERED: PATIROMER CALCIUM SORBITEX 8.4 GM PACK PO STA (08:32)
[2023-04-15] MEDS: SODIUM CHLORIDE 0.9% 1000ML 1,000 ML IV SCH (11:49)
[2023-04-15] MEDS: POLYETHYLENE (MIRALAX) 17 GM PACK PO SCH (11:49)
--- NOTE | 2023-04-15 12:32 | Nephrology Progress Note ---
Date of Service April 15, 2023 Assessment & Plan (1) Acute kidney injury: (2) Hyponatremia: (3) Metabolic acidosis: (4) Viral pneumonia: (5) Anemia: Plan 86-year-old gentlemen with history of stage IIIB CKD baseline creatinine 1.5 and history of coronary artery disease, admitted with viral pneumonia with rhinovirus. On admission renal function was stable at baseline however over last 3 days renal function rapidly worsen with creatinine down to 3.2 this morning associated with hyponatremia and metabolic acidosis. Reports voiding normally although unmeasured. Renal ultrasound negative for postrenal obstruction. Urinalysis with no proteinuria, significant hematuria pyuria Also found to have unstable angina with elevated troponin, started on heparin drip however stop the heparin drip this morning due to significant drop in hemoglobin to 7.6 this morning with admission hemoglobin above 11. Renal function slightly improved, cr down to 2.9, Na 131 on IV fluid but K was 5.4. Hb remained low at 8.6. --continue low-potassium diet, give 1 dose of Veltassa. Continue NS at 80 mL/hour, monitor respiratory status closely with history of significant coronary artery disease, repeat renal panel and electrolytes this afternoon. -- accurate intake and output, encourage p.o. intake -- avoid all nephrotoxic medications. Admission and Anticipated Discharge Date Admission Date: April 09, 2023 Lucila Padilla was seen this am, overall feeling well, no SOB. HB stable. Cr slightly improved. BP well controlled. abdominal wall hematoma with no significant pain. Decent UO, net positive. Review of Systems Review of Systems: Detail ROS was otherwise unremarkable. Physical Exam Constitutional: WD/WN, vitals as above no acute distress Eyes: + anicteric sclerae Neck: normal visual inspection Respiratory: no respiratory distress Auscultation: lungs clear to auscultation bilaterally Cardiovascular: RRR, no murmur, no edema Musculoskeletal: Extremities: extremities normal to inspection Skin: abdominal wall hematoma Neurologic: no focal motor deficits and not confused Psychiatric: Orientation: alert and oriented x 3 Affect: euthymic affect Results & Data Vital Signs (Past 12 Hours) Vital Signs Temp Pulse Pulse Resp BP Pulse Ox O2 Del Method 04/15/23 07:00 72 04/15/23 11:11 36.8 C 71 16 112/62 99 Nasal Cannula 04/15/23 07:42 36.6 C 66 16 122/72 98 Nasal Cannula 04/15/23 05:00 134/67 04/15/23 04:00 36.7 C 75 18 131/69 94 Nasal Cannula O2 Flow Rate 04/15/23 07:00 04/15/23 11:11 1 04/15/23 07:42 1 04/15/23 05:00 04/15/23 04:00 2 PG Care Time/CCT Total # of Minutes Spent Total Time Spent with Patient: Total time spent is greater than 50% in coordination of care (as documented) at patient's floor/unit and/or counseling patient: Coding Level of Care Code 40240 SUB INP/OBS CARE 3/50MIN Diagnoses Acute kidney injury N17.9 Hyponatremia E87.1 Metabolic acidosis E87.20 Viral pneumonia J12.9 Anemia D64.9 Anemia type: unspecified type (5) Anemia Anemia type: unspecified type Qualified Code(s): D64.9 - Anemia, unspecified
--- NOTE | 2023-04-15 13:16 | Cardiology Progress Note ---
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 Chest pain: No recurrent symptoms. However, he has been minimally active. Will have a better understanding any anginal-type symptoms as he becomes more ambulatory. 2. Elevated troponin: Initially treated as NSTEMI. Continuing dual anti- platelet therapy 3. Coronary disease: Extensive cardiovascular history including peripheral vascular disease as well. he is on high-dose simvastatin. Will continue dual anti-platelet therapy. 4. Anemia: The concern is for GI losses. However, no melena documented. No hematemesis. 5. Hyperlipidemia: LDL at goal on current dose of simvastatin. Triglyceride level somewhat high, but this is in the setting of his acute illness I think we can monitor this over time. I would not start Vascepa currently. Will continue to monitor for recurrent symptoms as he becomes more active. Admission and Anticipated Discharge Date Admission Date: April 09, 2023 Subjective This morning the patient reported feeling generally better. He was able to eat breakfast without any abdominal complaints. His lower quadrant abdominal pain also seems to have resolved. He has done little ambulation and has some difficulty transferring from the bed to the bedside commode. He did not report any additional symptoms of chest pain. No dizziness or lightheadedness. No breathing difficulty. Review of Systems Review of Systems: Per HPI Physical Exam Physical Exam: The patient is alert and oriented. Mood and affect appeared normal. He answered all questions appropriately. HEENT: Pupils are equal and reactive to light and accommodation. Extraocular movements are intact. The sclerae are anicteric. Neuro: Cranial nerves intact Lungs: Normal respiratory effort. Diffuse bronchial breath sounds throughout all lung morgan. No expiratory wheezing. Cardiac: Heart demonstrates a normal rate. Pulses: The patient has palpable radial pulses bilaterally that are equal in intensity Extremities: There was no evidence of hypoperfusion. There is no cyanosis or clubbing. minimal edema. Significant abdominal ecchymosis predominantly along the waistline. Skin: I did not appreciate any rashes on examination today. Results & Data Vital Signs (Past 12 Hours) Vital Signs Temp Pulse Pulse Resp BP Pulse Ox O2 Del Method 04/15/23 07:00 72 04/15/23 11:11 36.8 C 71 16 112/62 99 Nasal Cannula 04/15/23 07:42 36.6 C 66 16 122/72 98 Nasal Cannula 04/15/23 05:00 134/67 04/15/23 04:00 36.7 C 75 18 131/69 94 Nasal Cannula O2 Flow Rate 04/15/23 07:00 04/15/23 11:11 1 04/15/23 07:42 1 04/15/23 05:00 04/15/23 04:00 2 Laboratory Results Abnormal Lab Results 04/14/23 04/14/23 04/14/23 15:06 16:25 20:16 WBC RBC Hgb Hct MCV MCH MCHC RDW Std Deviation RDW Coeff of Daniel Plt Count MPV Immature Gran % (Auto) Neut % (Auto) Lymph % (Auto) Nicollet % (Auto) Eos % (Auto) Baso % (Auto) Neut # (Auto) Lymph # (Auto) Nicollet # (Auto) Eos # (Auto) Baso # (Auto) Immature Gran # (Auto) Absolute Nucleated RBC Nucleated RBC % (auto) Sodium 128 L Potassium 5.3 H Chloride 97 L Carbon Dioxide 23 Anion Gap 8 BUN 87 H Creatinine 3.62 H Est Cr Clr Drug Dosing 14.6 Est GFR ( Amer) 16.5 Est GFR (Non-Af Amer) 14.2 BUN/Creatinine Ratio 24.0 H Glucose 139 H POC Glucose 147 H 131 H Calcium 8.6 Phosphorus 5.1 H Albumin 3.8 Triglycerides Cholesterol LDL Cholesterol, Calc VLDL Cholesterol, Calc HDL Cholesterol Cholesterol/HDL Ratio 04/15/23 04/15/23 04/15/23 06:58 06:58 07:37 WBC 12.16 H RBC 2.82 L Hgb 8.6 L Hct 25.9 L MCV 91.8 MCH 30.5 MCHC 33.2 RDW Std Deviation 52.2 H RDW Coeff of Daniel 15.8 H Plt Count 230 MPV 9.9 Immature Gran % (Auto) 1.6 Neut % (Auto) 77.4 Lymph % (Auto) 6.7 Nicollet % (Auto) 12.6 Eos % (Auto) 1.5 Baso % (Auto) 0.2 Neut # (Auto) 9.43 H Lymph # (Auto) 0.81 L Nicollet # (Auto) 1.53 H Eos # (Auto) 0.18 Baso # (Auto) 0.02 Immature Gran # (Auto) 0.19 Absolute Nucleated RBC 0.02 Nucleated RBC % (auto) 0.2 Sodium 131 L Potassium 5.4 H Chloride 102 Carbon Dioxide 23 Anion Gap 6 BUN 76 H Creatinine 2.99 H D Est Cr Clr Drug Dosing 17.7 Est GFR ( Amer) 20.8 Est GFR (Non-Af Amer) 17.9 BUN/Creatinine Ratio 25.4 H Glucose 101 H POC Glucose 105 H Calcium 8.1 L Phosphorus 3.8 D Albumin 3.4 Triglycerides 191 H Cholesterol 83 LDL Cholesterol, Calc 18 VLDL Cholesterol, Calc 38 H HDL Cholesterol 27 Cholesterol/HDL Ratio 3.1 04/15/23 11:35 WBC RBC Hgb Hct MCV MCH MCHC RDW Std Deviation RDW Coeff of Daniel Plt Count MPV Immature Gran % (Auto) Neut % (Auto) Lymph % (Auto) Nicollet % (Auto) Eos % (Auto) Baso % (Auto) Neut # (Auto) Lymph # (Auto) Nicollet # (Auto) Eos # (Auto) Baso # (Auto) Immature Gran # (Auto) Absolute Nucleated RBC Nucleated RBC % (auto) Sodium Potassium Chloride Carbon Dioxide Anion Gap BUN Creatinine Est Cr Clr Drug Dosing Est GFR ( Amer) Est GFR (Non-Af Amer) BUN/Creatinine Ratio Glucose POC Glucose 118 H Calcium Phosphorus Albumin Triglycerides Cholesterol LDL Cholesterol, Calc VLDL Cholesterol, Calc HDL Cholesterol Cholesterol/HDL Ratio Diagnostic Findings chest x-ray obtained the time of admission and 2 days later did not reveal any acute cardiopulmonary process. Abdominal x-ray did not reveal any evidence of obstruction. No free air. Echocardiogram obtained 04/10/2023: Ejection fraction greater than 70%. Severe LVH. Mildly reduced RV systolic function. No significant valvular heart disease. Cardiac perfusion study 08/2021: Infarct and ischemia in the inferior wall. Cardiac catheterization 09/2021: left main: 70% ostial stenosis, Lad 100% occluded in its midportion, left circumflex 80% proximal stenosis, right coronary 100% occluded, youssef to LAD widely patent, SVG to OM 2 is occluded, SVG to RCA is occluded, SVG to PDA is occluded, SVG to diagonal occluded, SVG to OM3 80% proximal stenosis. ECG Additional Comments: EKG demonstrated normal sinus rhythm with some T-wave inversions in the inferior leads. 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
--- NOTE | 2023-04-15 16:24 | Hospitalist Progress Note ---
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 Extensive left flank ecchymoses is consistent with retroperitoneal hemorrhage which has come to the surface. Hemoglobin is mildly low but appears to have stabilized. Continue current medic al management. Cardiology consultation and recommendations appreciated. Imdur uptitrated this admission. (2) Acute bronchitis due to Rhinovirus: Plan: [employer] + for rhinovirus. Multiple chest x-rays negative for pneumonia. Par enteral steroid therapy has been discontinued. Nebulizers as needed. (3) CAD (coronary artery disease): Plan: h/o 6-vessel CABG in the early . Multiple stents since that time, all of which were placed at [facility] except for 1 stent at the hospital in [place]. Imdur dosage uptitrated this admission. Losartan has been discontinued due to renal failure. Cont metoprolol, simvastatin, asa, plavix. (4) Hx of CABG: Plan: Medical management. Appreciate cardiology consultation (5) Chronic renal failure (CRF), stage 3b: Plan: Acute on chronic renal failure at this time. Creatinine has improved to 2.99 since IV fluids have been started. We will continue IV fluids at this time. Renal ultrasound negative for obstruction. Continue to monitor intake and output. Appreciate nephrology consultation and recommendations. Serial labs (6) Elevated troponin: Plan: minimal elevation at admission was likely myocardial demand ischemia. Medical management. Appreciate cardiology recommendations (7) DVT prophylaxis: Plan: SCDs and ambulation. Heparin drip has been discontinued (8) T2DM (type 2 diabetes mellitus): Plan: a1c 6.8%. ADA diet. Sliding scale coverage as needed (9) Abdominal distension: Plan: 2nd constipation - moderate stool on KUB . Now on miralax and senna. Improved after bowel movements (10) Hyperkalemia: Plan: Due to renal failure. Losartan has been discontinued. Valtressa administered on April 14 and again today April 15. Improving. Continue IV fluids. Serial labs Plan To be determined. He may need short-term rehab placement Admission and Anticipated Discharge Date Admission Date: April 09, 2023 Subjective Alert and oriented. Creatinine has improved to 2.9 with IV fluids which we will continue. They will Renetta dosage administered again today, April 15. Potassium has improved after yesterday's dose down to 5.4. He has considerable left flank ecchymoses. Hemoglobin is down slightly to 8.6. We will follow Review of Systems Review of Systems: Constitutional-no fever or chills ENT-no blurred vision, no double vision, no epistaxis, no sore throat Respiratory-no cough, no wheezing. Short of breath with minimal exertion Cardiac-no palpitations, no syncope. Denies chest pain in the last 24 hours GI-no nausea, vomiting, diarrhea, melena, hematochezia -no urinary retention, no urinary incontinence, no dysuria, no hematuria Musculoskeletal-no joint pain, no muscle tenderness Skin-extensive left flank ecchymoses noted. No rashes, no pruritus Neuro-generalized weakness noted. No focal deficits Psych-depressed affect Physical Exam Physical Exam: General-alert and oriented x3, no fevers, no chills HEENT-head atraumatic and normocephalic, pupils equal and reactive to light, extraocular muscles intact Neck-no lymphadenopathy or thyromegaly, trachea midline Chest-dullness and diminished breath sounds at the right base. No rales. No rhonchi Cardiac-regular rate and rhythm, normal S1 and S2 Abdomen-normal bowel sounds, nontender, no hepatosplenomegaly Extremities-no cyanosis, clubbing, or edema Neuro-cranial nerves II through XII intact, motor and sensory function within normal limits, strength symmetrical with generalized weakness, no focal deficits Skinextensive left flank ecchymoses Psych-depressed affect Skinpallor noted Results & Data Results & Data Vital Signs (Past 12 Hours) Vital Signs Temp Pulse Pulse Resp BP Pulse Ox O2 Del Method 04/15/23 07:00 72 04/15/23 11:11 36.8 C 71 16 112/62 99 Nasal Cannula 04/15/23 07:42 36.6 C 66 16 122/72 98 Nasal Cannula 04/15/23 05:00 134/67 O2 Flow Rate 04/15/23 07:00 04/15/23 11:11 1 04/15/23 07:42 1 04/15/23 05:00 Laboratory Results 04/15/23 06:58 04/15/23 06:58 PG Care Time/CCT Total # of Minutes Spent Total Time Spent with Patient: Total time spent is greater than 50% in coordination of care (as documented) at patient's floor/unit and/or counseling patient: Coding Level of Care Code 01810 SUB INP/OBS CARE 3/50MIN Diagnoses 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
[2023-04-15] MEDS: SIMVASTATIN 40 MG TAB PO SCH (23:57)
[2023-04-16] MEDS: COUGH DROP (SUGAR FREE) LOZ 24 LOZ/1 BOX BUCCAL PRN ×2 (00:05→21:26)
[2023-04-16] MEDS: SODIUM CHLORIDE 0.9% 1000ML 1,000 ML IV SCH ×3 (00:15→23:00)
[2023-04-16] MEDS: METOPROLOL TARTRATE 25 MG TAB PO SCH ×3 (06:28→17:43)
[2023-04-16 06:49] LABS: Hematocrit (blood only) 19.9 % (42.0-52.0); Hemoglobin 6.4 g/dl (14.0-18.0); Mean Corpuscular Hemoglobin 30.6 pg (25.0-34.0); Mean Corpuscular Hgb Conc 32.2 g/dL (32.0-36.0); Mean Corpuscular Volume 95.2 fL (80.0-100.0); Mean Platelet Volume 9.6 fL (9.4-12.4); Platelet Count 199 K/uL (130-400); RDW Coefficient of Variation 15.7 % (11.5-14.5); Red Blood Count 2.09 M/uL (4.70-6.10); White Blood Count 7.48 K/ul (4.8-10.8)
[2023-04-16] MEDS ORDERED: SODIUM CHLORIDE 0.9% 250 ML IV PRN (07:13)
[2023-04-16 07:22] LABS: Basophils # (auto) 0.01 K/uL (0-0.2); Basophils % (auto) 0.1 %; Eosinophils # (auto) 0.14 K/uL (0-0.50); Eosinophils % (auto) 1.9 %; Immature Granulocytes % (auto) 1.3 %; Lymphocytes # (auto) 0.69 K/uL (1.2-3.4); Lymphocytes % (auto) 9.2 %; Monocytes # (auto) 1.14 K/uL (0.11-0.59); Monocytes % (auto) 15.2 %; Neutrophils % (auto) 72.3 %; RBC Morphology Unremarkable
[2023-04-16] MEDS: guaiFENesin 600 MG TABCR PO SCH ×2 (07:57→21:22)
[2023-04-16] MEDS: BENZONATATE 100 MG CAPSULE PO SCH ×3 (07:57→21:22)
[2023-04-16] MEDS: ACETAMINOPHEN 325 MG TAB PO SCH ×4 (07:58→21:22)
[2023-04-16] MEDS: DOCUSATE SODIUM 100 MG CAP PO SCH (07:59)
[2023-04-16] MEDS: FOLIC ACID 400 MCG TAB PO SCH (07:59)
[2023-04-16] MEDS: PANTOprazole 40 MG TAB PO SCH (08:00)
[2023-04-16] MEDS: SENNA 8.6 MG TAB PO SCH (08:00)
[2023-04-16] MEDS: CALCIUM 600MG + VIT D 400 IU TAB PO SCH (08:00)
[2023-04-16] MEDS: MULTIVITAMIN TAB PO SCH (08:00)
[2023-04-16] MEDS: CYANOCOBALAMIN (B-12) 500 MCG TABLET PO SCH (08:00)
[2023-04-16] MEDS: ISOSORBIDE MONO EXTENDED REL 60 MG TABCR PO SCH (08:00)
[2023-04-16] MEDS: DICLOFENAC SOD 1% GEL 100 GM TUBE EXT SCH ×3 (08:01→21:23)
[2023-04-16] MEDS: POLYETHYLENE (MIRALAX) 17 GM PACK PO SCH (09:00)
--- NOTE | 2023-04-16 09:35 | CT Scan Report ---
CT abdomen wo con CLINICAL HISTORY: suspected retroperitoneal bleed TECHNIQUE: Helical axial images of the abdomen and pelvis were obtained. Automated dose lowering tech niques and/or adjustment according to patient size were utilized for this exam. This exam was perfor med without intravenous contrast. CT DOSE: 1056.33 mGy.cm COMPARISON: Comparison is made to renal ultrasound 04/13/2023 FINDINGS: Lower chest: Bibasilar atelectasis versus scarring is seen. 2 atherosclerotic disease is seen. Liver: Unremarkable. No focal lesions are seen. Gallbladder and biliary tree: No calcified gallstones. Normal caliber wall. No intra- or extrahepatic biliary ductal dilation. Pancreas: Unremarkable, no focal lesions. Spleen: Unremarkable. Adrenals: Unremarkable. Kidneys and ureters: Nonobstructive nephrolithiasis is seen. Left renal cyst is seen. Bowel: Diverticulosis is seen without evidence of diverticulitis. A small hiatal hernia is seen. Lymph nodes Retroperitoneal: Unremarkable. Mesenteric: Unremarkable. Peritoneum: There is a small amount of complex fluid in the right greater than left retroperitoneum. Vessels: Atherosclerotic calcifications are seen. Abdominal wall: A fat-containing supraumbilical hernia is seen. Bones: Degenerative changes in the visualized spine. IMPRESSION: A small amount of right-sided hyperdense stranding is compatible with trace retroperitoneal hemorrhag e. ACT 112: Negative or not required by law. Electronically signed by: Chet Rivero M.D. 04/16/2023 9:32 AM
[2023-04-16 10:40] LABS: Albumin Level 3.7 gm/dl (3.4-5.0); BUN Creatinine Ratio 30.5 (10-20); Creatinine Clr Calc Pharmacy 26.1 ml/min; Est GFR (African American) 33.2 ml/min; Est GFR (Non-African American) 28.6 ml/min; Phosphorus 2.7 mg/dl (2.5-4.9); Potassium 5.1 mmol/L (3.5-5.1)
--- NOTE | 2023-04-16 11:13 | Nephrology Progress Note ---
Date of Service April 16, 2023 Assessment & Plan (1) Acute kidney injury: (2) Hyponatremia: (3) Metabolic acidosis: (4) Viral pneumonia: (5) Anemia: Plan 86-year-old gentlemen with history of stage IIIB CKD b/l cr 1.5 and history of coronary artery disease, admitted with viral pneumonia with rhinovirus. On admission renal function was stable at baseline however over last 3 days renal function rapidly worsen with creatinine down to 3.2 this morning associated with hyponatremia and metabolic acidosis. Reports voiding normally although unmeasured. Renal ultrasound negative for postrenal obstruction. Urinalysis with no proteinuria, significant hematuria pyuria Also found to have unstable angina with elevated troponin, started on heparin drip however stopped the heparin drip due to significant drop in hemoglobin and retroperitoneal bleeding. Renal function improved, cr down to 2.2, Hb dropped to 6.4 --agree with PRBC, continue low-potassium diet, NS at 80 mL/hour, monitor respiratory status closely with history of significant coronary artery disease. -- accurate intake and output, encourage p.o. intake -- avoid all nephrotoxic medications. Admission and Anticipated Discharge Date Admission Date: April 09, 2023 Lucila Padilla was seen this am, denies SOB, CP, dizziness, lightheadedness.. HB dropped to 6.4, CT showing retroperitoneal bleed. Cr improved. BP well relatively low. Abdominal wall hematoma with no significant pain. Decent UO, net positive. Review of Systems Review of Systems: Detail ROS was otherwise unremarkable. Physical Exam Constitutional: WD/WN, vitals as above no acute distress pale Eyes: + anicteric sclerae Neck: normal visual inspection Respiratory: no respiratory distress Auscultation: lungs clear to auscultation bilaterally Cardiovascular: RRR, no murmur, no edema Musculoskeletal: Extremities: extremities normal to inspection Skin: abdominal wall hematoma Neurologic: no focal motor deficits and not confused Psychiatric: Orientation: alert and oriented x 3 Affect: euthymic affect Results & Data Vital Signs (Past 12 Hours) Vital Signs Temp Pulse Pulse Resp BP BP BP 04/16/23 09:58 36.6 C 63 18 106/53 L 04/16/23 08:15 36.8 C 62 16 114/60 04/16/23 07:24 70 04/16/23 06:30 158/76 H Pulse Ox O2 Del Method O2 Flow Rate 04/16/23 09:58 98 04/16/23 08:15 98 Nasal Cannula 2 04/16/23 07:24 04/16/23 06:30 PG Care Time/CCT Total # of Minutes Spent Total Time Spent with Patient: Total time spent is greater than 50% in coordination of care (as documented) at patient's floor/unit and/or counseling patient: Coding Level of Care Code 87288 SUB INP/OBS CARE 3/50MIN Diagnoses Acute kidney injury N17.9 Hyponatremia E87.1 Metabolic acidosis E87.20 Viral pneumonia J12.9 Anemia D64.9 Anemia type: unspecified type (5) Anemia Anemia type: unspecified type Qualified Code(s): D64.9 - Anemia, unspecified
[2023-04-16 12:57] LABS: Hematocrit (blood only) 26.8 % (42.0-52.0); Hemoglobin 8.7 g/dl (14.0-18.0)
--- NOTE | 2023-04-16 15:49 | Hospitalist Progress Note ---
Date of Service April 16, 2023 Assessment & Plan (1) Unstable angina due to arteriosclerosis of coronary artery bypass graft: Plan: Heparin drip was discontinued due to anemia. It appears it also caused retroperitoneal hemorrhage. Extensive left flank ecchymoses is consistent with retroperitoneal hemorrhage which has come to the surface. Continue current medical management. Cardiology consultation and recommendations appreciated. Imdur uptitrated this admission. (2) Retroperitoneal hemorrhage: Plan: Seen on CT scan. Due to heparin drip administer earlier this admission. (3) Acute blood loss anemia: Plan: Serial labs. Blood transfusion as needed. He received another 2 units of packed red blood cells this morning, April 16. We will follow. (4) Acute bronchitis due to Rhinovirus: Plan: BioFire + for rhinovirus. Multiple chest x-rays negative for pneumonia. Parenteral steroid therapy has been discontinued. Nebulizers as needed. (5) CAD (coronary artery disease): Plan: h/o 6-vessel CABG in the early . Multiple stents since that time, all of which were placed at [facility] except for 1 stent at the hospital in [place]. Imdur dosage uptitrated this admission. Losartan has been discontinued due to renal failure. Cont metoprolol, simvastatin. (6) Hx of CABG: Plan: Medical management. Appreciate cardiology consultation (7) Chronic renal failure (CRF), stage 3b: Plan: Acute on chronic renal failure at this time. Creatinine has improved since IV fluids have been started. Continue IV fluids at this time. Renal ultrasound negative for obstruction. Continue to monitor intake and output. Appreciate nephrology consultation and recommendations. Serial labs (8) Elevated troponin: Plan: minimal elevation at admission was likely myocardial demand ischemia. Medical management. Appreciate cardiology recommendations (9) DVT prophylaxis: Plan: SCDs and ambulation. Heparin drip has been discontinued (10) T2DM (type 2 diabetes mellitus): Plan: a1c 6.8%. ADA diet. Sliding scale coverage as needed (11) Abdominal distension: Plan: 2nd constipation - moderate stool on KUB . Now on miralax and senna. Improved after bowel movements (12) Hyperkalemia: Plan: Due to renal failure. Losartan has been discontinued. Valtressa administered on April 14 and again on April 15. Improving. Continue IV fluids. Serial labs Plan Probable discharge to SNF early next week Admission and Anticipated Discharge Date Admission Date: April 09, 2023 Subjective Hemodynamically stable. However, he required 2 more units of blood this morning for hemoglobin of 6.4. He has evidence of retroperitoneal hemorrhage on abdominal CT scan probably from the previous heparin drip he was on for unstable angina. Creatinine, however, has improved with IV fluids. Creatinine is down to 2.0 and potassium down to 5.1. Nephrology entry noted. Continue OT and PT. Review of Systems Review of Systems: Constitutional-no fever or chills ENT-no blurred vision, no double vision, no epistaxis, no sore throat Respiratory-no cough, no wheezing. Short of breath with minimal exertion Cardiac-no palpitations, no syncope. Denies chest pain in the last 24 hours GI-no nausea, vomiting, diarrhea, melena, hematochezia -no urinary retention, no urinary incontinence, no dysuria, no hematuria Musculoskeletal-no joint pain, no muscle tenderness Skin-extensive left flank ecchymoses noted. No rashes, no pruritus Neuro-generalized weakness noted. No focal deficits Psych-depressed affect Physical Exam Physical Exam: General-alert and oriented x3, no fevers, no chills HEENT-head atraumatic and normocephalic, pupils equal and reactive to light, extraocular muscles intact Neck-no lymphadenopathy or thyromegaly, trachea midline Chest-dullness and diminished breath sounds at the right base. No rales. No rhonchi Cardiac-regular rate and rhythm, normal S1 and S2 Abdomen-normal bowel sounds, nontender, no hepatosplenomegaly Extremities-no cyanosis, clubbing, or edema Neuro-cranial nerves II through XII intact, motor and sensory function within normal limits, strength symmetrical with generalized weakness, no focal deficits Skinextensive left flank ecchymoses Psych-depressed affect Skinpallor noted Results & Data Results & Data Vital Signs (Past 12 Hours) Vital Signs Temp Pulse Pulse Resp BP BP BP 04/16/23 14:43 04/16/23 13:39 36.5 C 76 20 128/61 04/16/23 13:38 36.5 C 76 20 128/61 04/16/23 11:49 36.5 C 68 16 115/61 04/16/23 11:21 04/16/23 09:58 36.6 C 63 18 106/53 L 04/16/23 08:15 36.8 C 62 16 114/60 04/16/23 07:24 70 04/16/23 06:30 158/76 H Pulse Ox Pulse Ox Pulse Ox O2 Del Method O2 Flow Rate 04/16/23 14:43 94 92 04/16/23 13:39 93 04/16/23 13:38 93 04/16/23 11:49 95 Nasal Cannula 2 04/16/23 11:21 95 04/16/23 09:58 98 04/16/23 08:15 98 Nasal Cannula 2 04/16/23 07:24 04/16/23 06:30 Laboratory Results 04/16/23 09:43 04/16/23 09:37 PG Care Time/CCT Total # of Minutes Spent Total Time Spent with Patient: Total time spent is greater than 50% in coordination of care (as documented) at patient's floor/unit and/or counseling patient: Coding Level of Care Code 61388 SUB INP/OBS CARE 3/50MIN Diagnoses 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
--- NOTE | 2023-04-16 16:32 | XRay Report ---
XR chest 1V portable HISTORY: 87 years-old Male dyspnea acute shortness of breath COMPARISON: CT abdomen of same day, chest radiograph 04/13/2023 TECHNIQUE: AP view of the chest FINDINGS: Cardiac silhouette is enlarged. Moderate right hemidiaphragmatic elevation. Prior median sternotomy w ith CABG. The thorax. Trace right pleural effusion with mild subsegmental bibasilar atelectasis. [place] ncy projects over the right lung base is likely secondary to atelectasis with adjacent aerated lung. Degenerative changes of the shoulders and spine. IMPRESSION: 1. Cardiomegaly without pulmonary edema. 3. Unchanged small right pleural effusion with mild bibasilar atelectasis. ACT 112: Negative or not required by law. The above report was generated using voice recognition software. It may contain grammatical, syntax o r spelling errors. Electronically signed by: Maury Wang M.D. 04/16/2023 4:30 PM
[2023-04-16 19:13] LABS: Hematocrit (blood only) 33.7 % (42.0-52.0); Hemoglobin 11.3 g/dl (14.0-18.0)
[2023-04-16] MEDS: SIMVASTATIN 40 MG TAB PO SCH (21:22)
[2023-04-17] MEDS: METOPROLOL TARTRATE 25 MG TAB PO SCH ×5 (00:14→23:34)
[2023-04-17 07:56] LABS: Basophils # (auto) 0.04 K/uL (0-0.2); Basophils % (auto) 0.4 %; Eosinophils # (auto) 0.22 K/uL (0-0.50); Eosinophils % (auto) 2.1 %; Hematocrit (blood only) 34.4 % (42.0-52.0); Hemoglobin 11.5 g/dl (14.0-18.0); Immature Granulocytes # (auto) 0.15 K/uL (0.01-0.20); Immature Granulocytes % (auto) 1.4 %; Lymphocytes % (auto) 8.7 %; Mean Corpuscular Hgb Conc 33.4 g/dL (32.0-36.0); Mean Corpuscular Volume 89.8 fL (80.0-100.0); Mean Platelet Volume 9.7 fL (9.4-12.4); Monocytes # (auto) 1.47 K/uL (0.11-0.59); Monocytes % (auto) 14.2 %; Neutrophils # (auto) 7.58 K/uL (1.40-6.50); Neutrophils % (auto) 73.2 %; Platelet Count 277 K/uL (130-400); RDW Coefficient of Variation 17.8 % (11.5-14.5); RDW Standard Deviation 55.6 fL (36.4-46.3); Red Blood Count 3.83 M/uL (4.70-6.10); White Blood Count 10.36 K/ul (4.8-10.8)
[2023-04-17 08:10] LABS: Albumin Level 3.8 gm/dl (3.4-5.0); Creatinine Clr Calc Pharmacy 35.3 ml/min; Est GFR (African American) 47.8 ml/min; Est GFR (Non-African American) 41.3 ml/min; Phosphorus 2.1 mg/dl (2.5-4.9); Potassium 4.8 mmol/L (3.5-5.1)
[2023-04-17] MEDS: guaiFENesin 600 MG TABCR PO SCH ×2 (09:10→19:24)
[2023-04-17] MEDS: BENZONATATE 100 MG CAPSULE PO SCH ×3 (09:10→19:23)
[2023-04-17] MEDS: ACETAMINOPHEN 325 MG TAB PO SCH ×4 (09:11→19:25)
[2023-04-17] MEDS: POLYETHYLENE (MIRALAX) 17 GM PACK PO SCH (09:11)
[2023-04-17] MEDS: DOCUSATE SODIUM 100 MG CAP PO SCH (09:11)
[2023-04-17] MEDS: PANTOprazole 40 MG TAB PO SCH (09:11)
[2023-04-17] MEDS: DICLOFENAC SOD 1% GEL 100 GM TUBE EXT SCH ×3 (09:12→19:25)
[2023-04-17] MEDS: FOLIC ACID 400 MCG TAB PO SCH (09:14)
[2023-04-17] MEDS: CYANOCOBALAMIN (B-12) 500 MCG TABLET PO SCH (09:14)
[2023-04-17] MEDS: MULTIVITAMIN TAB PO SCH (09:14)
[2023-04-17] MEDS: ISOSORBIDE MONO EXTENDED REL 60 MG TABCR PO SCH (09:15)
[2023-04-17] MEDS: SENNA 8.6 MG TAB PO SCH (09:15)
[2023-04-17] MEDS: CALCIUM 600MG + VIT D 400 IU TAB PO SCH (09:15)
--- NOTE | 2023-04-17 12:50 | Nephrology Progress Note ---
Date of Service April 17, 2023 Assessment & Plan (1) Acute kidney injury: (2) Hyponatremia: (3) Metabolic acidosis: (4) Viral pneumonia: (5) Anemia: Plan 86-year-old gentlemen with history of stage IIIB CKD b/l cr 1.5 and history of coronary artery disease, admitted with viral pneumonia with rhinovirus. On admission renal function was stable at baseline however over last 3 days renal function rapidly worsen with creatinine down to 3.2 this morning associated with hyponatremia and metabolic acidosis. Reports voiding normally although unmeasured. Renal ultrasound negative for postrenal obstruction. Urinalysis with no proteinuria, significant hematuria pyuria Also found to have unstable angina with elevated troponin, started on heparin drip however stopped the heparin drip due to significant drop in hemoglobin and retroperitoneal bleeding. Renal function improved, cr down to 1.5, Hb 11.5 --continue low-potassium diet, recommend to discontinue IV fluid. -- accurate intake and output, encourage p.o. intake -- avoid all nephrotoxic medications. Will sign off. Admission and Anticipated Discharge Date Admission Date: April 09, 2023 Subjective Randy was seen this am, denies SOB, CP, dizziness, lightheadedness.. HB improved to more than 11 after 2 PRBC yesterday, creatinine improved to 1.5, but his baseline, electrolyte acceptable. Overall feeling well, participating with Physical therapy who recommended rehab for few days. Abdominal wall hematoma with no significant pain. Decent UO, net positive. Review of Systems Review of Systems: Detail ROS was otherwise unremarkable. Physical Exam Constitutional: WD/WN, vitals as above no acute distress pale Eyes: + anicteric sclerae Neck: normal visual inspection Respiratory: no respiratory distress Auscultation: lungs clear to auscultation bilaterally Cardiovascular: RRR, no murmur, no edema Musculoskeletal: Extremities: extremities normal to inspection Skin: abdominal wall hematoma Neurologic: no focal motor deficits and not confused Psychiatric: Orientation: alert and oriented x 3 Affect: euthymic affect Results & Data Vital Signs (Past 12 Hours) Vital Signs Temp Pulse Pulse Resp BP Pulse Ox O2 Del Method 04/17/23 11:28 36.8 C 69 20 142/71 H 93 Room Air 04/17/23 08:00 Room Air 04/17/23 09:43 79 20 97 Nasal Cannula 04/17/23 08:20 36.6 C 65 20 156/86 H 99 Room Air 04/17/23 07:38 64 04/17/23 04:14 36.4 C L 70 18 144/76 H 96 Room Air O2 Flow Rate 04/17/23 11:28 04/17/23 08:00 04/17/23 09:43 2 04/17/23 08:20 04/17/23 07:38 04/17/23 04:14 PG Care Time/CCT Total # of Minutes Spent Total Time Spent with Patient: Total time spent is greater than 50% in coordination of care (as documented) at patient's floor/unit and/or counseling patient: Coding Level of Care Code 67776 SUB INP/OBS CARE 235MIN Diagnoses Acute kidney injury N17.9 Hyponatremia E87.1 Metabolic acidosis E87.20 Viral pneumonia J12.9 Anemia D64.9 Anemia type: unspecified type (5) Anemia Anemia type: unspecified type Qualified Code(s): D64.9 - Anemia, unspecified
[2023-04-17 13:49] LABS: Appearance Urine Clear (Clear); Bacteria Urine Automated Negative (Negative); Bilirubin Urine Negative (Negative); Blood Urine Negative (Negative); Color Urine Yellow; Glucose Urine UA Negative (Negative); Ketones Urine Negative (Negative); Leukocyte Esterase Urine Negative (Negative); Nitrite Urine Negative (Negative); Protein Urine 1+ (Negative); RBC Urine Automated 0-4 /hpf (0-4); Specific Gravity Urine 1.019 (1.000-1.030); Urobilinogen Urine Negative (Negative); pH Urine 5.5 (4.5-7.5)
--- NOTE | 2023-04-17 13:59 | Hospitalist Progress Note ---
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 Extensive left flank ecchymoses is consistent with retroperitoneal hemorrhage which has come to the surface. Continue current medical management. Cardiology consultation and recommendations appreciated. Imdur uptitrated this admission. (2) Retroperitoneal hemorrhage: Plan: Seen on CT scan. Due to heparin drip administer earlier this admission. (3) Acute blood loss anemia: Plan: Serial labs. Blood transfusion as needed. He received another 2 units of packed red blood cells on the morning of April 16. Hemoglobin is now stable and improving (4) Acute bronchitis due to Rhinovirus: Plan: BioFire + for rhinovirus. Multiple chest x-rays negative for pneumonia. Parenteral steroid therapy has been discontinued. Nebulizers as needed. (5) CAD (coronary artery disease): Plan: h/o 6-vessel CABG in the early . Multiple stents since that time, all of which were placed at [facility] except for 1 stent at the hospital in [place]. Imdur dosage uptitrated this admission. Losartan has been discontinued due to renal failure. Cont metoprolol, simvastatin. (6) Hx of CABG: Plan: Medical management. Appreciate cardiology consultation (7) Chronic renal failure (CRF), stage 3b: Plan: Acute on chronic renal failure at this time. Creatinine has improved since IV fluids have been started. Continue IV fluids at this time. Renal ultrasound negative for obstruction. Continue to monitor intake and output. Appreciate nephrology consultation and recommendations. Serial labs (8) Elevated troponin: Plan: minimal elevation at admission was likely myocardial demand ischemia. Medical management. Appreciate cardiology recommendations (9) DVT prophylaxis: Plan: SCDs and ambulation. Heparin drip has been discontinued (10) T2DM (type 2 diabetes mellitus): Plan: a1c 6.8%. ADA diet. Sliding scale coverage as needed (11) Abdominal distension: Plan: 2nd constipation - moderate stool on KUB . Now on miralax and senna. Improved after bowel movements (12) Hyperkalemia: Plan: Due to renal failure. Losartan has been discontinued. Valtressa administered on April 14 and again on April 15. Resolved. IV fluids are at 50 mL/h. Serial labs Plan Anticipate discharge to [place] tomorrow, April 18 Admission and Anticipated Discharge Date Admission Date: April 09, 2023 Subjective Alert and oriented. Creatinine has improved to 1.5. IV fluids taper down. Potassium improved to 4.8. Hemoglobin improved to 11.5. Hopeful discharge to [place] tomorrowApril 18 Review of Systems Review of Systems: Constitutional-no fever or chills ENT-no blurred vision, no double vision, no epistaxis, no sore throat Respiratory-no cough, no wheezing. Short of breath with minimal exertion Cardiac-no palpitations, no syncope. Denies chest pain in the last 24 hours GI-no nausea, vomiting, diarrhea, melena, hematochezia -no urinary retention, no urinary incontinence, no dysuria, no hematuria Musculoskeletal-no joint pain, no muscle tenderness Skin-extensive left flank ecchymoses noted. No rashes, no pruritus Neuro-generalized weakness noted. No focal deficits Psych-depressed affect Physical Exam Physical Exam: General-alert and oriented x3, no fevers, no chills HEENT-head atraumatic and normocephalic, pupils equal and reactive to light, extraocular muscles intact Neck-no lymphadenopathy or thyromegaly, trachea midline Chest-dullness and diminished breath sounds at the right base. No rales. No rhonchi Cardiac-regular rate and rhythm, normal S1 and S2 Abdomen-normal bowel sounds, nontender, no hepatosplenomegaly Extremities-no cyanosis, clubbing, or edema Neuro-cranial nerves II through XII intact, motor and sensory function within normal limits, strength symmetrical with generalized weakness, no focal deficits Skinextensive left flank ecchymoses Psych-depressed affect Skinpallor noted Results & Data Results & Data Vital Signs (Past 12 Hours) Vital Signs Temp Pulse Pulse Resp BP Pulse Ox O2 Del Method 04/17/23 11:28 36.8 C 69 20 142/71 H 93 Room Air 04/17/23 08:00 Room Air 04/17/23 09:43 79 20 97 Nasal Cannula 04/17/23 08:20 36.6 C 65 20 156/86 H 99 Room Air 04/17/23 07:38 64 04/17/23 04:14 36.4 C L 70 18 144/76 H 96 Room Air O2 Flow Rate 04/17/23 11:28 04/17/23 08:00 04/17/23 09:43 2 04/17/23 08:20 04/17/23 07:38 04/17/23 04:14 Laboratory Results 04/17/23 07:01 04/17/23 07:01 PG Care Time/CCT Total # of Minutes Spent Total Time Spent with Patient: Total time spent is greater than 50% in coordination of care (as documented) at patient's floor/unit and/or counseling patient: Coding Level of Care Code 88967 SUB INP/OBS CARE 2/35MIN Diagnoses 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
--- NOTE | 2023-04-17 17:16 | Cardiology Progress Note ---
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 Chest pain: No recurrent symptoms. However, he has been very sedentary. We have a better understanding of recurrent symptoms when his activity level improves. Hemoglobin also improved after transfusion. Imdur and beta-blockade were both increased during this hospitalization the hopes of reducing recurrent angina. 2. Elevated troponin: Initially treated as NSTEMI. Continuing dual anti- platelet therapy 3. Coronary disease: Extensive cardiovascular history including peripheral vascular disease as well. he is on high-dose simvastatin. Will continue dual anti-platelet therapy. 4. Anemia: The concern is for GI losses. However, no melena documented. No hematemesis. Possibly retroperitoneal or subcutaneous. Hemoglobin improved and stable subsequent to transfusion. 5. Hyperlipidemia: LDL at goal on current dose of simvastatin. No current plans for an invasive evaluation. At this point will simply monitor him for recurrent symptoms when he is more active. In the absence of recurrent chest pain he could be discharged on his current medical regimen with follow-up in the outpatient setting. Will sign off currently. Please contact the on-call [facility] graduate teaching associate for recurrent symptoms or other concerns. Admission and Anticipated Discharge Date Admission Date: April 09, 2023 Subjective Patient continues to gain strength. Minimal ambulation. Abdominal complaints appear to have resolved. No breathing difficulty. No recurrent chest pain. Review of Systems Review of Systems: Per HPI Physical Exam Physical Exam: The patient is alert and oriented. Mood and affect appeared normal. He answered all questions appropriately. HEENT: Pupils are equal and reactive to light and accommodation. Extraocular movements are intact. The sclerae are anicteric. Neuro: Cranial nerves intact Lungs: Normal respiratory effort. Diffuse bronchial breath sounds throughout all lung morgan. No expiratory wheezing. Cardiac: Heart demonstrates a normal rate. Pulses: The patient has palpable radial pulses bilaterally that are equal in intensity Extremities: There was no evidence of hypoperfusion. There is no cyanosis or clubbing. minimal edema. Significant abdominal ecchymosis predominantly along the waistline. Skin: I did not appreciate any rashes on examination today. Results & Data Vital Signs (Past 12 Hours) Vital Signs Temp Pulse Pulse Resp BP Pulse Ox O2 Del Method 04/17/23 17:09 82 20 151/80 H 96 Nasal Cannula 04/17/23 16:31 78 04/17/23 15:09 36.7 C 83 20 165/74 H 95 Room Air 04/17/23 11:28 36.8 C 69 20 142/71 H 93 Room Air 04/17/23 08:00 Room Air 04/17/23 09:43 79 20 97 Nasal Cannula 04/17/23 08:20 36.6 C 65 20 156/86 H 99 Room Air 04/17/23 07:38 64 O2 Flow Rate 04/17/23 17:09 2 04/17/23 16:31 04/17/23 15:09 04/17/23 11:28 04/17/23 08:00 04/17/23 09:43 2 04/17/23 08:20 04/17/23 07:38 Laboratory Results Abnormal Lab Results 04/16/23 04/16/23 04/16/23 18:10 19:00 20:12 WBC RBC Hgb 11.3 L Hct 33.7 L MCV MCH MCHC RDW Std Deviation RDW Coeff of Daniel Plt Count MPV Immature Gran % (Auto) Neut % (Auto) Lymph % (Auto) [place] % (Auto) Eos % (Auto) Baso % (Auto) Neut # (Auto) Lymph # (Auto) [place] # (Auto) Eos # (Auto) Baso # (Auto) Immature Gran # (Auto) Sodium Potassium Chloride Carbon Dioxide Anion Gap BUN Creatinine Est Cr Clr Drug Dosing Est GFR ( Amer) Est GFR (Non-Af Amer) BUN/Creatinine Ratio Glucose POC Glucose 145 H Calcium Phosphorus Albumin Urine Color Urine Appearance Urine pH Ur Specific [place] Urine Protein Urine Glucose (UA) Urine Ketones Urine Blood Urine Nitrite Urine Bilirubin Urine Urobilinogen Ur Leukocyte Esterase Urine WBC (Auto) Urine RBC (Auto) U Hyaline Cast (Auto) U Epithel Cells (Auto) Urine Bacteria (Auto) Stool Occult Bld Scrn Negative 04/17/23 04/17/23 04/17/23 07:01 07:01 07:32 WBC 10.36 RBC 3.83 L Hgb 11.5 L Hct 34.4 L MCV 89.8 D MCH 30.0 MCHC 33.4 RDW Std Deviation 55.6 H RDW Coeff of Daniel 17.8 H Plt Count 277 MPV 9.7 Immature Gran % (Auto) 1.4 Neut % (Auto) 73.2 Lymph % (Auto) 8.7 [place] % (Auto) 14.2 Eos % (Auto) 2.1 Baso % (Auto) 0.4 Neut # (Auto) 7.58 H Lymph # (Auto) 0.90 L [place] # (Auto) 1.47 H Eos # (Auto) 0.22 Baso # (Auto) 0.04 Immature Gran # (Auto) 0.15 Sodium 137 Potassium 4.8 Chloride 110 H Carbon Dioxide 21 Anion Gap 6 BUN 51 H Creatinine 1.50 H D Est Cr Clr Drug Dosing 35.3 Est GFR ( Amer) 47.8 Est GFR (Non-Af Amer) 41.3 BUN/Creatinine Ratio 34.0 H Glucose 112 H POC Glucose 107 H Calcium 8.0 L Phosphorus 2.1 L Albumin 3.8 Urine Color Urine Appearance Urine pH Ur Specific [place] Urine Protein Urine Glucose (UA) Urine Ketones Urine Blood Urine Nitrite Urine Bilirubin Urine Urobilinogen Ur Leukocyte Esterase Urine WBC (Auto) Urine RBC (Auto) U Hyaline Cast (Auto) U Epithel Cells (Auto) Urine Bacteria (Auto) Stool Occult Bld Scrn 04/17/23 04/17/23 04/17/23 11:23 13:20 16:18 WBC RBC Hgb Hct MCV MCH MCHC RDW Std Deviation RDW Coeff of Daniel Plt Count MPV Immature Gran % (Auto) Neut % (Auto) Lymph % (Auto) [place] % (Auto) Eos % (Auto) Baso % (Auto) Neut # (Auto) Lymph # (Auto) [place] # (Auto) Eos # (Auto) Baso # (Auto) Immature Gran # (Auto) Sodium Potassium Chloride Carbon Dioxide Anion Gap BUN Creatinine Est Cr Clr Drug Dosing Est GFR ( Amer) Est GFR (Non-Af Amer) BUN/Creatinine Ratio Glucose POC Glucose 106 H 155 H Calcium Phosphorus Albumin Urine Color Yellow Urine Appearance Clear Urine pH 5.5 Ur Specific [place] 1.019 Urine Protein 1+ H Urine Glucose (UA) Negative Urine Ketones Negative Urine Blood Negative Urine Nitrite Negative Urine Bilirubin Negative Urine Urobilinogen Negative Ur Leukocyte Esterase Negative Urine WBC (Auto) 1-5 Urine RBC (Auto) 0-4 U Hyaline Cast (Auto) 1-5 U Epithel Cells (Auto) 5-10 H Urine Bacteria (Auto) Negative Stool Occult Bld Scrn Diagnostic Findings chest x-ray obtained the time of admission and 2 days later did not reveal any acute cardiopulmonary process. Abdominal x-ray did not reveal any evidence of obstruction. No free air. Echocardiogram obtained 04/10/2023: Ejection fraction greater than 70%. Severe LVH. Mildly reduced RV systolic function. No significant valvular heart disease. Cardiac perfusion study 08/2021: Infarct and ischemia in the inferior wall. Cardiac catheterization 09/2021: left main: 70% ostial stenosis, Lad 100% occluded in its midportion, left circumflex 80% proximal stenosis, right lian nary 100% occluded, youssef to LAD widely patent, SVG to OM 2 is occluded, SVG to RCA is occluded, SVG to PDA is occluded, SVG to diagonal occluded, SVG to OM3 80% proximal stenosis. ECG Additional Comments: EKG demonstrated normal sinus rhythm with some T-wave inversions in the inferior leads. 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
[2023-04-17] MEDS: SIMVASTATIN 40 MG TAB PO SCH (19:24)
[2023-04-18] MEDS: METOPROLOL TARTRATE 25 MG TAB PO SCH (05:11)
[2023-04-18] MEDS: BENZONATATE 100 MG CAPSULE PO SCH (07:36)
[2023-04-18] MEDS: DOCUSATE SODIUM 100 MG CAP PO SCH (07:37)
[2023-04-18] MEDS: PANTOprazole 40 MG TAB PO SCH (07:38)
[2023-04-18] MEDS: FOLIC ACID 400 MCG TAB PO SCH (07:38)
[2023-04-18] MEDS: guaiFENesin 600 MG TABCR PO SCH (07:39)
[2023-04-18] MEDS: CALCIUM 600MG + VIT D 400 IU TAB PO SCH (07:40)
[2023-04-18] MEDS: SENNA 8.6 MG TAB PO SCH (07:40)
[2023-04-18] MEDS: MULTIVITAMIN TAB PO SCH (07:40)
[2023-04-18] MEDS: ACETAMINOPHEN 325 MG TAB PO SCH (07:40)
[2023-04-18] MEDS: POLYETHYLENE (MIRALAX) 17 GM PACK PO SCH (07:41)
[2023-04-18] MEDS: ISOSORBIDE MONO EXTENDED REL 60 MG TABCR PO SCH (07:41)
[2023-04-18] MEDS: CYANOCOBALAMIN (B-12) 500 MCG TABLET PO SCH (07:41)
[2023-04-18] MEDS: DICLOFENAC SOD 1% GEL 100 GM TUBE EXT SCH (07:41)
[2023-04-18 08:24] LABS: Basophils # (auto) 0.03 K/uL (0-0.2); Basophils % (auto) 0.3 %; Eosinophils % (auto) 1.9 %; Hematocrit (blood only) 33.5 % (42.0-52.0); Hemoglobin 11.5 g/dl (14.0-18.0); Immature Granulocytes # (auto) 0.14 K/uL (0.01-0.20); Immature Granulocytes % (auto) 1.4 %; Lymphocytes # (auto) 0.96 K/uL (1.2-3.4); Lymphocytes % (auto) 9.3 %; Mean Corpuscular Hemoglobin 30.5 pg (25.0-34.0); Mean Corpuscular Hgb Conc 34.3 g/dL (32.0-36.0); Mean Corpuscular Volume 88.9 fL (80.0-100.0); Mean Platelet Volume 9.2 fL (9.4-12.4); Monocytes # (auto) 1.29 K/uL (0.11-0.59); Monocytes % (auto) 12.5 %; Neutrophils % (auto) 74.6 %; Platelet Count 285 K/uL (130-400); RDW Coefficient of Variation 17.3 % (11.5-14.5); RDW Standard Deviation 54.3 fL (36.4-46.3); Red Blood Count 3.77 M/uL (4.70-6.10); White Blood Count 10.32 K/ul (4.8-10.8)
[2023-04-18 08:34] LABS: Albumin Level 3.8 gm/dl (3.4-5.0); BUN Creatinine Ratio 27.9 (10-20); Calcium 8.2 mg/dl (8.6-10.3); Creatinine Clr Calc Pharmacy 39.7 ml/min; Est GFR (African American) 53.8 ml/min; Est GFR (Non-African American) 46.5 ml/min; Phosphorus 1.8 mg/dl (2.5-4.9); Potassium 4.6 mmol/L (3.5-5.1)
--- NOTE | 2023-04-18 10:06 | Discharge Summary ---
Date of Service April 18, 2023 Admission HPI Per Admitting Provider 87yo Male with PMH CABG with stent placement here for SOB congestion. States congestion started last week, had increased SOB on exertion today went to [facility], they took a CXR stated he had bilateral pneumonia sent him to ED, patient declined ambulance was driven by family member. In ED noted patient desatted to 88% on ambulation with room air, was given albuterol nebulizer which improved his breathing. At this time he denies any fever chills chest pain SOB nausea vomitting. Patient understands that his CXR retaken in the hospital does not show evidence of pneumonia, labs were positive for rhinovirus. Still has productive sounding cough in room, mild wheeze. He denies history of pulmonary conditions. Per son, patient lives alone, family lives 30min away. Discussed with patient given his mildly elevated troponin, the fact he lives alone with an extensive cardiac history, we will recheck his troponin. Troponin returned largely unchanged. Discussed with patient it would be safer to keep him overnight, patient agreed. Principal Diagnosis Unstable angina, retroperitoneal bleeding from heparin infusion, acute on chronic kidney disease, hyperkalemia Discharge Exam General-alert and oriented x3, no fevers, no chills HEENT-head atraumatic and normocephalic, pupils equal and reactive to light, extraocular muscles intact Neck-no lymphadenopathy or thyromegaly, trachea midline Chest-dullness and diminished breath sounds at the right base. No rales. No rhonchi Cardiac-regular rate and rhythm, normal S1 and S2 Abdomen-normal bowel sounds, nontender, no hepatosplenomegaly Extremities-no cyanosis, clubbing, or edema Neuro-cranial nerves II through XII intact, motor and sensory function within normal limits, strength symmetrical with generalized weakness, no focal deficits Skinextensive left and right flank ecchymoses Psych-depressed affect Skinpallor noted Discharge Data Allergies Allergy/AdvReac Type Severity Reaction Status Date / Time No Known Allergies Allergy Verified 04/07/23 17:33 Consultations 04/07/23 19:18 ED Decision to Admit Stat 04/11/23 05:23 Consult Cardiology Routine 04/13/23 09:09 Consult Nephrology Routine Ordered Studies 04/13/23 09:08 US Renal Bladder [US renal/blad retro comp] Urgent 04/16/23 08:05 CT abdomen wo con Urgent Hospital Course (1) 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 Extensive left and right flank ecchymoses is consistent with retroperitoneal hemorrhage which has come to the surface. Continue current medical management. Cardiology consultation and recommendations appreciated. Imdur uptitrated this admission. (2) Retroperitoneal hemorrhage: Seen on CT scan. Due to heparin drip administer earlier this admission. (3) Acute blood loss anemia: Serial labs. Blood transfusion as needed. He received another 2 units of packed red blood cells on the morning of April 16. Hemoglobin is now stable and improving (4) Acute bronchitis due to Rhinovirus: [employer] + for rhinovirus. Multiple chest x-rays negative for pneumonia. Parenteral steroid therapy has been discontinued. Nebulizers as needed. (5) CAD (coronary artery disease): h/o 6-vessel CABG in the early . Multiple stents since that time, all of which were placed at [facility] except for 1 stent at the hospital in [place]. Imdur dosage uptitrated this admission. Losartan has been discontinued due to renal failure. Cont metoprolol, simvastatin. (6) Hx of CABG: Medical management. Appreciate cardiology consultation (7) Chronic renal failure (CRF), stage 3b: Acute on chronic renal failure at this time. Creatinine has improved since IV fluids have been started. Continue IV fluids at this time. Renal ultrasound negative for obstruction. Continue to monitor intake and output. Appreciate nephrology consultation and recommendations. Serial labs (8) Elevated troponin: minimal elevation at admission was likely myocardial demand ischemia. Medical management. Appreciate cardiology recommendations (9) DVT prophylaxis: SCDs and ambulation. Heparin drip has been discontinued (10) T2DM (type 2 diabetes mellitus): a1c 6.8%. ADA diet. Sliding scale coverage as needed (11) Abdominal distension: 2nd constipation - moderate stool on KUB . Now on miralax and senna. Improved after bowel movements (12) Hyperkalemia: Due to renal failure. Losartan has been discontinued. Valtressa administered on April 14 and again on April 15. Resolved. Serial labs Plan Discharge to [facility] today, April 18 Total Time Total Time Spent Total Time Spent (In Minutes): 45-minute Discharge Plan Discharge Items Patient Disposition: Transfer Care Home Fac Reason For Visit: SOB Discharge Diagnosis: Unstable angina, retroperitoneal hemorrhage due to heparin infusion, acute on chronic kidney disease, hyperkalemia Activity: Resume your previous activity Non-emergency contact: Primary Care Provider Call non-emergency contact if: you have any medication questions and your symptoms worsen Follow-up/Referrals: Sana Snell MD [Primary Care Provider] - Diet: Regular and Heart Healthy Addtl Attending Provider Instructions: Losartan has been discontinued, Imdur dosage has been increased Pending Studies at Discharge: No Stand-Alone Forms: My [facility] Skilled Items Patient informed of condition?: Yes DNR: Yes Discharge Level of Care: Skilled Communicable Disease: No Discharge Prognosis: Stable Lines: None Urinary Catheter: No Medications and DC Order Prescriptions: New pantoprazole 40 mg Tablet,Delayed Release (Dr/Ec) 40 mg PO QAM Qty: 0 0RF nitroglycerin [Nitrostat] 0.4 mg Tablet, Sublingual 0.4 mg sublingual Q5M PRNQty: 0 0RF polyethylene glycol 3350 [Miralax] 17 gram Powder In Packet 17 g PO DAILY PRN (Reason: constipation) Qty: 0 0RF sennosides [Senokot] 8.6 mg Tablet 17.2 mg PO QAM Qty: 0 0RF isosorbide mononitrate 60 mg Tablet Extended Release 24 Hr 60 mg PO DAILY Qty: 0 0RF Continued simvastatin 80 mg tablet 40 mg PO DAILY clopidogrel [Plavix] 75 mg tablet 75 mg PO DAILY aspirin 81 mg tablet,delayed release (DR/EC) 81 mg PO DAILY multivitamin Tablet 1 tab PO DAILY cyanocobalamin (vitamin B-12) [Vitamin B-12] 1,000 mcg Tablet 1,000 mcg PO DAILY acetaminophen [Tylenol Arthritis] 650 mg Tablet Extended Release 1,300 mg PO Q12H metoprolol tartrate 50 mg tablet 25 mg PO BID docusate sodium [Stool Softener] 100 mg Capsule 200 mg PO DAILY azelastine 137 mcg (0.1 %) aerosol,spray 1 spray intranasal DAILY folic acid 800 mcg Tablet 0.8 mg PO DAILY coenzyme Q10 [CoQ-10] 100 mg Capsule 100 mg PO DAILY calcium carbonate-vitamin D3 [Calcium 600 + D(3)] 600 mg-10 mcg (400 unit) Tablet 1 tab PO DAILY Discontinued isosorbide dinitrate 30 mg tablet 30 mg PO DAILY Rx Instructions: allow nitrate-free interval of 12-14 hrs per 24-hr period losartan 100 mg tablet 50 mg PO DAILY Discharge Orders: Discharge Order (Routine); Ordered 04/18/23 Ordered By: Clark Garcia Admission Data Admit Date/Time: 04/09/23 16:33 Attending Provider: Clark Garcia Admit Provider: Holly Egan Primary Care Provider: Sana Snell Other Providers: Forrest Merrill ; [facility] ; Hansel Burr ; [place] ; Traci Irvin ; Adarsh Campbell ; Paradise Mccoy ; [facility] ; [facility] ; [facility] Coding Level of Care Code 30362 INP/OBS DISCH >30 MIN Diagnoses 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
== END 2023-04-18 11:16 | DRG 303 ==
LOC: 2W 15:33 → ED 15:33 → SUATTDRO 23:02 → 2W 23:51 → SUATTDRO 04-09 16:33
DX: Z79.82 Long term (current) use of aspirin; I25.700 Atherosclerosis of coronary artery bypass graft(s), unspecified, with unstable angina pectoris; Z95.1 Presence of aortocoronary bypass graft; Z79.02 Long term (current) use of antithrombotics/antiplatelets; Y92.239 Unspecified place in hospital as the place of occurrence of the external cause; D62 Acute posthemorrhagic anemia; E87.1 Hypo-osmolality and hyponatremia; J20.6 Acute bronchitis due to rhinovirus; N18.32 Chronic kidney disease, stage 3b; I24.8 Other forms of acute ischemic heart disease; R09.02 Hypoxemia; T45.515A Adverse effect of anticoagulants, initial encounter; N17.9 Acute kidney failure, unspecified; I12.9 Hypertensive chronic kidney disease with stage 1 through stage 4 chronic kidney disease, or unspecified chronic kidney disease; K59.00 Constipation, unspecified; Z87.891 Personal history of nicotine dependence; E87.20 Acidosis, unspecified; R58 Hemorrhage, not elsewhere classified; Z95.5 Presence of coronary angioplasty implant and graft; E78.5 Hyperlipidemia, unspecified